=== PATIENT | female | born 1930 | race Caucasian/White ===

== ENCOUNTER 2016-10-15 10:49 | Inpatient (IN) | payer MEDICARE, BC ==
[~2016-10-15 10:49] MED LIST: GENTAMICIN SULFATE 80 MG in DEXTROSE 5%-WATER 100 ML IV PRN
[2016-10-15 12:19] LABS: ANION GAP 14 (5-19); BLOOD UREA NITROGEN 36 mg/dL (7-20); CALCIUM 8.4 mg/dL (8.4-10.2); CARBON DIOXIDE 25 mmol/L (22-30); CHLORIDE 96 mmol/L (98-107); CREATININE RESULT 2.65 mg/dL (0.52-1.25); GLUCOSE 130 mg/dL (75-110); POTASSIUM 4.4 mmol/L (3.6-5.0); SODIUM 134.8 mmol/L (137-145)
[2016-10-15] MEDS ORDERED: FENTANYL CITRATE INJ/PF 100 MCG/2 ML AMPUL ONE (12:50)
[2016-10-15] MEDS ORDERED: PROPOFOL INJ 200 MG/20 ML VIAL IV ONE (12:50)
[2016-10-15] MEDS ORDERED: MIDAZOLAM 2 MG/2 ML INJ ONE (12:50)
[2016-10-15] MEDS ORDERED: DEXMEDETOMIDINE INJ 80 MCG/20 ML VIAL IV ONE (12:51)
[2016-10-15] MEDS ORDERED: ONDANSETRON HCL INJ/PF 4 MG/2 ML SDV ONE (13:17)
--- NOTE | 2016-10-15 14:37 | Operative Report ---
Operative Report DATE OF SURGERY: 10/15/16 PREOPERATIVE DIAGNOSIS: ureteral stricture POSTOPERATIVE DIAGNOSIS: same OPERATION: cystoscopy, left retrograde pyelogram, left stent exchange SURGEON: CAIN BROWN ANESTHESIA: Moderate Sedation COMPLICATIONS: none ESTIMATED BLOOD LOSS: minimal INTRAOPERATIVE FINDINGS: see below PROCEDURE: The patient was taken to the operating room and placed supine on the operating table. After Mac anesthesia was established she was placed in dorsal lithotomy position. The perineal area was dressed and draped in standard surgical fashion. Attention was paid to the urethral meatus a 23 [place] scope was introduced the bladder. Cystoscopy revealed no masses. The stent was identified and grasped with a grasper and brought to urethral meatus. Attempt was made at passing a guidewire through the stent however it was encrusted in one pass. The stent was removed and tip catheter was placed within the left ureteral orifice and a retrograde program shot demonstrating ureteral stricture and mild hydronephrosis. A PTFE wire was then advanced up into the renal pelvis under fluoroscopy. A 622 double-J stent was then placed. The stent was in good position on fluoroscopy with good coil renal pelvis and good coil bladder. She tolerated the procedure well without complications.
[2016-10-15] MEDS ORDERED: METOPROLOL TARTRATE PF/INJ 5 MG/5 ML SDV IV ONE ×4 (14:42→16:13)
[2016-10-15] MEDS ORDERED: ONDANSETRON HCL INJ/PF 4 MG/2 ML SDV IV PRN ×2 (14:43→17:07)
[2016-10-15] MEDS ORDERED: OXYCODONE-ACETAMINOPHEN 5-325 MG TABLET PO PRN (14:43)
--- NOTE | 2016-10-15 15:49 | EKG REPORT ---
SEVERITY:- ABNORMAL ECG - ATRIAL FIBRILLATION, V-RATE [id number] : Confirmed by: Laith Quigley 15-Oct-2016 15:48:00
[2016-10-15 17:05] LABS: ANION GAP 8 (5-19); BLOOD UREA NITROGEN 33 mg/dL (7-20); CARBON DIOXIDE 28 mmol/L (22-30); CHLORIDE 98 mmol/L (98-107); CREATINE KINASE 46 U/L (30-135); CREATININE RESULT 2.33 mg/dL (0.52-1.25); GLUCOSE 125 mg/dL (75-110); MAGNESIUM 1.3 mg/dL (1.6-2.3); POTASSIUM 4.3 mmol/L (3.6-5.0); SODIUM 133.7 mmol/L (137-145)
[2016-10-15] MEDS ORDERED: (PENDING PHARMACY ID) (Oxycodone Hcl [Oxycodone Hcl] 1 TAB) PO PRN (17:10)
[2016-10-15] MEDS ORDERED: DEXTROSE 50%-WATER 25 GM/50 ML DISP.SYRIN IV PRN ×2 (17:11)
[2016-10-15] MEDS ORDERED: GLUCAGON,HUMAN RECOMB 1 MG INJ IM PRN (17:11)
[2016-10-15] MEDS ORDERED: DEXTROSE 40% GEL 15 GM TUBE PO PRN ×2 (17:11)
[2016-10-15 17:17] LABS: CREATINE KINASE MB 0.82 ng/mL (<4.55)
[2016-10-15 17:21] LABS: TROPONIN I < 0.012 ng/mL
[2016-10-15] MEDS ORDERED: (PENDING PHARMACY ID) (Omeprazole [Prilosec 20 Mg Capsule] 20 MG) PO SCH (18:00)
[2016-10-15] MEDS: DOCUSATE SODIUM 100 MG CAPSULE PO SCH (19:00)
[2016-10-15] MEDS ORDERED: DILTIAZEM HCL/D5W 125 MG/125 ML RTUINJ IV PRN (20:10)
[2016-10-15] MEDS ORDERED: ENOXAPARIN SODIUM INJ 40 MG/0.4 ML DISP.SYRIN SUBCUT ONE (21:15)
[2016-10-15] MEDS ORDERED: ENOXAPARIN SODIUM INJ 30 MG/0.3 ML DISP.SYRIN SUBCUT ONE (21:30)
[2016-10-15] MEDS ORDERED: FAMOTIDINE INJ/PF 20 MG/2 ML SDV IV SCH (22:00)
[2016-10-15 22:41] LABS: PROTHROMBIN TIME 13.4 SEC (11.4-15.4)
[2016-10-15] MEDS: FAMOTIDINE INJ/PF 20 MG/2 ML SDV IV SCH (22:52)
[2016-10-15] MEDS: ATORVASTATIN CALCIUM 40 MG TABLET PO SCH (22:52)
[2016-10-15] MEDS: ATENOLOL 50 MG TABLET PO SCH (22:55)
[2016-10-15 23:50] LABS: HEMATOCRIT 32.3 % (36.0-47.0); HEMOGLOBIN 11.1 g/dL (12.0-15.5); MEAN CORPUSCULAR HEMOGLOBIN 31.9 pg (27.0-33.4); MEAN CORPUSCULAR HGB CONC 34.4 g/dL (32.0-36.0); MEAN CORPUSCULAR VOLUME 93 fl (80-97); RED BLOOD COUNT 3.49 10^6/uL (3.72-5.28); RED CELL DISTRIBUTION WIDTH 14.6 % (11.5-14.0); WHITE BLOOD COUNT 11.5 10^3/uL (4.0-10.5)
[2016-10-16 00:16] LABS: ANISOCYTOSIS SLIGHT; BAND NEUTROPHILS % (MANUAL) 4 % (3-5); BASOPHILS % (MANUAL) 0 % (0-2); EOSINOPHILS % (MANUAL) 0 % (0-6); LYMPHOCYTES % (MANUAL) 0 % (13-45); TOTAL CELLS COUNTED 100; TOXIC VACUOLATION PRESENT
[2016-10-16] MEDS: INSULIN LISPRO 100 UNIT/ML 3 ML VIAL SUBCUT PRN (00:56)
[2016-10-16] MEDS: ACETAMINOPHEN 325 MG TABLET PO PRN (01:02)
[2016-10-16] MEDS: PREGABALIN 50 MG CAPSULE PO SCH ×3 (01:28→23:00)
[2016-10-16 04:52] LABS: ABSOLUTE BASOPHILS # (AUTO) 0.1 10^3/uL (0.0-0.2); ABSOLUTE LYMPHOCYTES (AUTO) 0.8 10^3/uL (0.5-4.7); ABSOLUTE MONOCYTES (AUTO) 0.7 10^3/uL (0.1-1.4); ABSOLUTE NEUT (AUTO) 11.8 10^3/uL (1.7-8.2); BASOPHILS % (AUTO) 0.6 % (0-2); EOSINOPHILS % (AUTO) 0.3 % (0-6); HEMATOCRIT 30.4 % (36.0-47.0); HEMOGLOBIN 10.4 g/dL (12.0-15.5); HGB HCT DIFFERENCE 0.8; LYMPHOCYTES % (AUTO) 5.9 % (13-45); MEAN CORPUSCULAR HEMOGLOBIN 31.7 pg (27.0-33.4); MEAN CORPUSCULAR HGB CONC 34.4 g/dL (32.0-36.0); MEAN CORPUSCULAR VOLUME 92 fl (80-97); MONOCYTES % (AUTO) 5.5 % (3-13); RED BLOOD COUNT 3.29 10^6/uL (3.72-5.28); RED CELL DISTRIBUTION WIDTH 14.9 % (11.5-14.0); SEGMENTED NEUTROPHILS % (AUTO) 87.7 % (42-78); WHITE BLOOD COUNT 13.5 10^3/uL (4.0-10.5)
[2016-10-16 05:11] LABS: ANION GAP 8 (5-19); BLOOD UREA NITROGEN 32 mg/dL (7-20); CALCIUM 8.4 mg/dL (8.4-10.2); CARBON DIOXIDE 28 mmol/L (22-30); CHLORIDE 101 mmol/L (98-107); CREATINE KINASE 52 U/L (30-135); GLUCOSE 166 mg/dL (75-110); MAGNESIUM 1.4 mg/dL (1.6-2.3); POTASSIUM 4.8 mmol/L (3.6-5.0); SODIUM 136.9 mmol/L (137-145)
[2016-10-16 05:22] LABS: TROPONIN I 0.016 ng/mL
--- NOTE | 2016-10-16 07:57 | EKG REPORT ---
SEVERITY:- ABNORMAL ECG - ATRIAL FIBRILLATION : Confirmed by: Laith Quigley 16-Oct-2016 07:56:54
[2016-10-16] MEDS ORDERED: ENOXAPARIN SODIUM INJ 40 MG/0.4 ML DISP.SYRIN SUBCUT SCH (08:00)
[2016-10-16] MEDS ORDERED: AMIODARONE HCL 200 MG TABLET PO ONE ×2 (09:00→22:00)
[2016-10-16] MEDS: ENOXAPARIN SODIUM INJ 30 MG/0.3 ML DISP.SYRIN SUBCUT SCH (09:21)
[2016-10-16] MEDS: ISOSORBIDE MONONITRATE 30 MG TAB.ER.24H PO SCH (09:25)
[2016-10-16] MEDS: FUROSEMIDE 40 MG TABLET PO SCH (09:25)
[2016-10-16] MEDS: CIPROFLOXACIN HCL 500 MG TABLET PO SCH ×2 (09:25→22:54)
[2016-10-16] MEDS: DOCUSATE SODIUM 100 MG CAPSULE PO SCH ×2 (09:26→17:34)
[2016-10-16] MEDS: POTASSIUM CHLORIDE 10 MEQ TABLET.SA PO SCH (09:26)
[2016-10-16] MEDS: ESCITALOPRAM OXALATE 10 MG TABLET PO SCH (09:27)
[2016-10-16] MEDS ORDERED: ISOSORBIDE MONONITRATE 60 MG TAB.ER.24H PO SCH (10:00)
[2016-10-16] MEDS ORDERED: (PENDING PHARMACY ID) (Saxagliptin Hcl [Onglyza] 5 MG) PO SCH (10:00)
[2016-10-16] MEDS ORDERED: POTASSIUM CHLORIDE PO SCH (10:00)
--- NOTE | 2016-10-16 13:09 | PDOC H&P ---
History of Present Illness Admission Date/PCP: 10/15/16 17:07 BONITA LYNN MD Patient complains of: afib History of Present Illness: MICHELLE HAYDEN is a 86 year old female pt came today for out pt cystoscopy and stent remove per dr murry and s/ pprocedure pt hr go upto 120 and ekg was done and shows afib pt hada h/o afib in past pt see dr browne for chf/cad p denied any chest pain no sob no abd pain no fever pt admitted for further evaution Past Medical History Cardiac Medical History: Reports: Congestive Heart Failure, Coronary Artery Disease, Hyperlipidema, Hypertension - many yrs Denies: Myocardial Infarction Pulmonary Medical History: Reports: Asthma - sob with exertion Denies: Bronchitis, Chronic Obstructive Pulmonary Disease (COPD), Pneumonia, Tuberculosis Neurological Medical History: Denies: Seizures Endocrine Medical History: Reports: Diabetes Mellitus Type 2 - no meds Malignancy Medical History: Reports: Other Malignancy History Note: rectal cancer s/p surgery/chemo GI Medical History: Reports: Gastroesophageal Reflux Disease Musculoskeltal Medical History: Reports: Arthritis - legs Psychiatric Medical History: Reports: Depression Hematology: Reports: Anemia - in past Past Surgical History Past Surgical History: Reports: Appendectomy, Cardiac Catheterization - x2, Cholecystectomy, Other Denies: Hysterectomy, Pacemaker Social History Smoking Status: Never Smoker Frequency of Alcohol Use: None Hx Recreational Drug Use: Yes Hx Prescription Drug Abuse: No Family History Family History: Reviewed & Not Pertinent Parental Family History Reviewed: Yes Children Family History Reviewed: Yes Sibling(s) Family History Reviewed.: Yes Medication/Allergy Home Medications: Atorvastatin Calcium [Lipitor 40 mg Tablet] 40 mg PO QHS 10/13/12 Omeprazole [Prilosec 20 mg Capsule] 20 mg PO BID 10/13/12 Saxagliptin HCl [Onglyza] 5 mg PO DAILY 10/13/12 Cholecalciferol (Vitamin D3) [Vitamin D3 1000 Unit Tablet] 1,000 unit PO DAILY # 0 tablet 09/09/13 Furosemide [Lasix 40 mg Tablet] 40 mg PO QAM #0 tablet 09/09/13 Pregabalin [Lyrica 50 mg Capsule] 50 mg PO Q12 #0 capsule 09/09/13 Atenolol [Tenormin 50 mg Tablet] 50 mg PO QHS 04/23/15 Escitalopram Oxalate [Lexapro 10 mg Tablet] 10 mg PO QAM 04/23/15 Escitalopram Oxalate [Lexapro] 5 mg PO QPM 04/23/15 Glimepiride [Amaryl] 2 mg PO QPM 04/23/15 Oxycodone HCl 1 tab PO Q4 PRN 07/20/15 Isosorbide Mononitrate [Imdur 60 mg Tablet.er] 30 mg PO DAILY 12/16/15 Ondansetron [Zofran Odt 4 mg Tablet] 1 - 2 tab PO Q4H PRN #15 tab.rapdis Potassium Chloride 1 cap PO DAILY 06/12/16 Allergies/Adverse Reactions: dipyridamole [From Persantine] Allergy (Severe, Verified 02/21/16 11:58) ? nalbuphine HCl [From Nubain] Allergy (Severe, Verified 12/16/15 11:41) shock Penicillins Allergy (Severe, Verified 02/21/16 11:58) rash Sulfa (Sulfonamide Antibiotics) Allergy (Unknown, Verified 12/16/15 11:41) ? aspirin [Aspirin] Adverse Reaction (Mild, Verified 12/16/15 11:41) stomach upset cardiolite Allergy (Severe, Uncoded 12/16/15 11:41) Hives IVP dye Allergy (Intermediate, Uncoded 12/16/15 11:41) Hives Review of Systems Constitutional: PRESENT: fatigue, weakness Eyes: ABSENT: visual disturbances Ears: ABSENT: hearing changes Cardiovascular: ABSENT: chest pain, dyspnea on exertion, edema, orthropnea, palpitations Respiratory: ABSENT: cough, hemoptysis Gastrointestinal: ABSENT: abdominal pain, constipation, diarrhea, hematemesis, hematochezia, nausea, vomiting Genitourinary: ABSENT: dysuria, hematuria Musculoskeletal: ABSENT: joint swelling Integumentary: ABSENT: rash, wounds Neurological: ABSENT: abnormal gait, abnormal speech, confusion, dizziness, focal weakness, syncope Psychiatric: ABSENT: anxiety, depression, homidical ideation, suicidal ideation Endocrine: ABSENT: cold intolerance, heat intolerance, menstrual abnormalities, polydipsia, polyuria Hematologic/Lymphatic: ABSENT: easy bleeding, easy bruising, lymphadenopathy Physical Exam Vital Signs: Temp Pulse Resp BP Pulse Ox 97.2 F 78 18 108/54 L 98 10/16/16 07:20 10/16/16 07:20 10/16/16 07:20 10/16/16 07:20 10/16/16 07:20 Intake & Output 10/15/16 10/16/16 10/17/16 06:59 06:59 06:59 Intake Total 1916 Output Total 400 Balance 1516 Weight 86 kg 92.5 kg General appearance: PRESENT: no acute distress Head exam: PRESENT: normocephalic Eye exam: PRESENT: PERRLA Mouth exam: PRESENT: neck supple Neck exam: PRESENT: full ROM Respiratory exam: PRESENT: clear to auscultation wei Cardiovascular exam: PRESENT: irregular rhythm, +S1, +S2 GI/Abdominal exam: PRESENT: normal bowel sounds, soft. ABSENT: tenderness Extremities exam: PRESENT: pedal edema Musculoskeletal exam: PRESENT: other Neurological exam: PRESENT: alert, awake, oriented to person, oriented to place , oriented to time, oriented to situation Psychiatric exam: PRESENT: anxious, normal mood Skin exam: PRESENT: normal color Results Laboratory Results: 10/16/16 04:45 10/16/16 04:45 10/15/16 10/15/16 10/16/16 16:37 22:20 04:45 WBC 11.5 H RBC 3.49 L Hgb 11.1 L Hct 32.3 L MCV 93 MCH 31.9 MCHC 34.4 RDW 14.6 H Plt Count 178 Seg Neutrophils % Not Reportable Lymphocytes % Not Reportable Monocytes % Not Reportable Eosinophils % Not Reportable Basophils % Not Reportable Absolute Neutrophils Not Reportable Absolute Lymphocytes Not Reportable Absolute Monocytes Not Reportable Absolute Eosinophils Not Reportable Absolute Basophils Not Reportable Sodium 133.7 L 136.9 L Potassium 4.3 4.8 Chloride 98 101 Carbon Dioxide 28 28 Anion Gap 8 8 BUN 33 H 32 H Creatinine 2.33 H 2.20 H Est GFR ( Amer) 24 L 26 L Est GFR (Non-Af Amer) 20 L 21 L Glucose 125 H 166 H Calcium 8.0 L 8.4 Magnesium 1.3 L 1.4 L 10/16/16 04:45 WBC 13.5 H RBC 3.29 L Hgb 10.4 L Hct 30.4 L MCV 92 MCH 31.7 MCHC 34.4 RDW 14.9 H Plt Count 186 Seg Neutrophils % 87.7 H Lymphocytes % 5.9 L Monocytes % 5.5 Eosinophils % 0.3 Basophils % 0.6 Absolute Neutrophils 11.8 H Absolute Lymphocytes 0.8 Absolute Monocytes 0.7 Absolute Eosinophils 0.0 Absolute Basophils 0.1 Sodium Potassium Chloride Carbon Dioxide Anion Gap BUN Creatinine Est GFR ( Amer) Est GFR (Non-Af Amer) Glucose Calcium Magnesium 10/15/16 10/15/16 10/15/16 16:37 16:37 22:20 Creatine Kinase 46 49 CK-MB (CK-2) 0.82 Troponin I < 0.012 NT-Pro-B Natriuret Pep 10/15/16 10/16/16 10/16/16 22:20 04:45 04:45 Creatine Kinase 52 CK-MB (CK-2) Troponin I 0.013 0.016 NT-Pro-B Natriuret Pep 81560 H Impressions: Retrograde Pyelogram 10/15/16 00:00 IMPRESSION: Left double-J stent in good positioning Assessment & Plan - Diagnosis (1) Atrial fibrillation Qualifiers: Atrial fibrillation type: paroxysmal Qualified Code(s): I48.0 - Paroxysmal atrial fibrillation Is this a current diagnosis for this admission?: YesPlan: cont b blocer no s/o any ischmic events d/w dr browne and s/o do not put any anticogaution now he will see and decide (2) Anemia Qualifiers: Iron deficiency anemia type: unspecified iron deficiency Is this a current diagnosis for this admission?: YesPlan: stable (3) Back pain Qualifiers: Back pain location: low back pain Is this a current diagnosis for this admission?: YesPlan: chronci cont pain med (4) Diabetes Qualifiers: Diabetes mellitus type: type 2 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 Is this a current diagnosis for this admission?: YesPlan: cont curr med (5) Hyperlipemia Qualifiers: Hyperlipidemia type: unspecified Qualified Code(s): E78.5 - Hyperlipidemia, unspecified Is this a current diagnosis for this admission?: YesPlan: cont curr med (6) Neuropathy Is this a current diagnosis for this admission?: YesPlan: cont lyrica (8) Hypertension Qualifiers: Hypertension type: essential hypertension Qualified Code(s): I10 - Essential (primary) hypertension (9) Urinary tract infection Qualifiers: Urinary tract infection type: site unspecified Is this a current diagnosis for this admission?: YesPlan: send urine for culture start cipro - Time Time Spent: 30 to 50 Minutes Medications reviewed and adjusted accordingly: Yes Anticipated discharge: Home Within: within 24 hours - Inpatient Certification Medical Necessity: Significant Comorbidiites Make Outpatient Treatment Too Risky , Need Close Monitoring Due to Risk of Patient Decompensation, Need For Continuous Telemetry Monitoring - Plan Summary Plan Summary: d/w pt and daughter on bed site consult dr hobbs all blood work stable
[2016-10-16] MEDS: ATORVASTATIN CALCIUM 40 MG TABLET PO SCH (22:53)
[2016-10-16] MEDS: ATENOLOL 50 MG TABLET PO SCH (22:54)
[2016-10-16] MEDS: FAMOTIDINE INJ/PF 20 MG/2 ML SDV IV SCH (22:54)
[2016-10-17 05:34] LABS: ABSOLUTE LYMPHOCYTES (AUTO) 0.7 10^3/uL (0.5-4.7); ABSOLUTE MONOCYTES (AUTO) 0.4 10^3/uL (0.1-1.4); ABSOLUTE NEUT (AUTO) 4.7 10^3/uL (1.7-8.2); BASOPHILS % (AUTO) 0.7 % (0-2); EOSINOPHILS % (AUTO) 0.6 % (0-6); HEMATOCRIT 30.2 % (36.0-47.0); HEMOGLOBIN 10.4 g/dL (12.0-15.5); LYMPHOCYTES % (AUTO) 11.1 % (13-45); MEAN CORPUSCULAR HEMOGLOBIN 32.1 pg (27.0-33.4); MEAN CORPUSCULAR HGB CONC 34.4 g/dL (32.0-36.0); MEAN CORPUSCULAR VOLUME 93 fl (80-97); MONOCYTES % (AUTO) 7.5 % (3-13); RED BLOOD COUNT 3.23 10^6/uL (3.72-5.28); RED CELL DISTRIBUTION WIDTH 14.7 % (11.5-14.0); SEGMENTED NEUTROPHILS % (AUTO) 80.1 % (42-78); WHITE BLOOD COUNT 5.9 10^3/uL (4.0-10.5)
[2016-10-17 05:51] LABS: ANION GAP 8 (5-19); BLOOD UREA NITROGEN 27 mg/dL (7-20); CALCIUM 8.3 mg/dL (8.4-10.2); CARBON DIOXIDE 29 mmol/L (22-30); CHLORIDE 100 mmol/L (98-107); CREATININE RESULT 1.43 mg/dL (0.52-1.25); GLUCOSE 158 mg/dL (75-110); POTASSIUM 4.6 mmol/L (3.6-5.0); SODIUM 136.6 mmol/L (137-145)
[2016-10-17] MEDS: ESCITALOPRAM OXALATE 10 MG TABLET PO SCH (08:42)
[2016-10-17] MEDS: FUROSEMIDE 40 MG TABLET PO SCH (08:42)
[2016-10-17] MEDS: PREGABALIN 50 MG CAPSULE PO SCH ×2 (08:43→22:31)
[2016-10-17] MEDS: POTASSIUM CHLORIDE 10 MEQ TABLET.SA PO SCH (08:43)
[2016-10-17] MEDS: DOCUSATE SODIUM 100 MG CAPSULE PO SCH ×2 (08:43→17:36)
[2016-10-17] MEDS: CIPROFLOXACIN HCL 500 MG TABLET PO SCH ×2 (08:43→22:31)
[2016-10-17] MEDS: ISOSORBIDE MONONITRATE 30 MG TAB.ER.24H PO SCH (08:43)
[2016-10-17] MEDS: ENOXAPARIN SODIUM INJ 30 MG/0.3 ML DISP.SYRIN SUBCUT SCH (09:00)
--- NOTE | 2016-10-17 09:49 | PDOC PROGRESS REPORT ---
Subjective Progress Note for:: 10/17/16 Subjective:: pt is doing well cr is all improving as per d/w dr browne and s/o start eliqius and watch another 1 days pt denied any chestpain no sob Physical Exam Vital Signs: Temp Pulse Resp BP Pulse Ox 98.8 F 106 H 16 144/79 H 94 10/17/16 07:38 10/17/16 07:38 10/17/16 07:38 10/17/16 07:38 10/17/16 07:38 Intake & Output 10/16/16 10/17/16 10/18/16 06:59 06:59 06:59 Intake Total 1916 415 Output Total 400 450 Balance 1516 -35 Weight 92.5 kg 92.4 kg General appearance: PRESENT: no acute distress Head exam: PRESENT: normocephalic Eye exam: PRESENT: PERRLA Mouth exam: PRESENT: neck supple Neck exam: PRESENT: full ROM Respiratory exam: PRESENT: clear to auscultation wei Cardiovascular exam: PRESENT: irregular rhythm, +S1, +S2 GI/Abdominal exam: PRESENT: normal bowel sounds, soft. ABSENT: tenderness Extremities exam: ABSENT: pedal edema Neurological exam: PRESENT: alert, awake, oriented to person Psychiatric exam: PRESENT: normal mood Skin exam: PRESENT: normal color Results Laboratory Results: 10/17/16 05:16 10/17/16 05:16 10/17/16 10/17/16 05:16 05:16 WBC 5.9 RBC 3.23 L Hgb 10.4 L Hct 30.2 L MCV 93 MCH 32.1 MCHC 34.4 RDW 14.7 H Plt Count 164 Seg Neutrophils % 80.1 H Lymphocytes % 11.1 L Monocytes % 7.5 Eosinophils % 0.6 Basophils % 0.7 Absolute Neutrophils 4.7 Absolute Lymphocytes 0.7 Absolute Monocytes 0.4 Absolute Eosinophils 0.0 Absolute Basophils 0.0 Sodium 136.6 L Potassium 4.6 Chloride 100 Carbon Dioxide 29 Anion Gap 8 BUN 27 H Creatinine 1.43 H Est GFR ( Amer) 42 L Est GFR (Non-Af Amer) 35 L Glucose 158 H Calcium 8.3 L 10/15/16 10/15/16 10/15/16 16:37 16:37 22:20 Creatine Kinase 46 49 CK-MB (CK-2) 0.82 Troponin I < 0.012 NT-Pro-B Natriuret Pep 10/15/16 10/16/16 10/16/16 22:20 04:45 04:45 Creatine Kinase 52 CK-MB (CK-2) Troponin I 0.013 0.016 NT-Pro-B Natriuret Pep 28248 H Impressions: Retrograde Pyelogram 10/15/16 00:00 IMPRESSION: Left double-J stent in good positioning Assessment & Plan - Diagnosis (1) Atrial fibrillation Qualifiers: Atrial fibrillation type: paroxysmal Qualified Code(s): I48.0 - Paroxysmal atrial fibrillation Is this a current diagnosis for this admission?: YesPlan: start eliquis 2.5 mg bid (2) Anemia Qualifiers: Iron deficiency anemia type: unspecified iron deficiency Is this a current diagnosis for this admission?: YesPlan: stable (3) Back pain Qualifiers: Back pain location: low back pain Is this a current diagnosis for this admission?: YesPlan: chronci cont pain med (4) Diabetes Qualifiers: Diabetes mellitus type: type 2 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 Is this a current diagnosis for this admission?: YesPlan: cont curr med (5) Hyperlipemia Qualifiers: Hyperlipidemia type: unspecified Qualified Code(s): E78.5 - Hyperlipidemia, unspecified Is this a current diagnosis for this admission?: YesPlan: cont curr med (6) Neuropathy Is this a current diagnosis for this admission?: YesPlan: cont lyrica (7) Rectal cancer Plan: stable (8) Hypertension Qualifiers: Hypertension type: essential hypertension Qualified Code(s): I10 - Essential (primary) hypertension Is this a current diagnosis for this admission?: YesPlan: stable (9) Urinary tract infection Qualifiers: Urinary tract infection type: site unspecified Is this a current diagnosis for this admission?: YesPlan: send urine for culture start cipro (10) Renal failure Is this a current diagnosis for this admission?: YesPlan: improving - Time Time Spent with patient: 15-24 minutes Medications reviewed and adjusted accordingly: Yes Anticipated discharge: Home with Homehealth - Inpatient Certification Medical Necessity: Need Close Monitoring Due to Risk of Patient Decompensation, Need For Continuous Telemetry Monitoring - Plan Summary Plan Summary: start eliqius cont cipro repeat cbc in am
[2016-10-17 10:15] LABS: ALBUMIN 2.4 g/dL (3.5-5.0); BILIRUBIN,TOTAL 0.7 mg/dL (0.2-1.3); TOTAL PROTEIN 4.9 g/dL (6.3-8.2)
[2016-10-17 10:31] LABS: FREE T3 1.79 pg/mL (2.77-5.27)
[2016-10-17 10:45] LABS: THYROID STIMULATING HORMONE 1.72 uIU/mL (0.47-4.68)
[2016-10-17] MEDS: APIXABAN 2.5 MG TABLET PO SCH ×2 (11:00→17:36)
[2016-10-17] MEDS: SITAGLIPTIN PHOSPHATE 50 MG TABLET PO SCH (11:00)
[2016-10-17] MEDS ORDERED: OXYCODONE HCL IR 5 MG TABLET PO PRN (13:56)
[2016-10-17] MEDS ORDERED: METOPROLOL TARTRATE 25 MG TABLET PO SCH (18:00)
--- NOTE | 2016-10-17 21:38 | PROGRESS NOTE E ---
Progress Note NAME: MICHELLE HAYDEN : 1930 AGE: 86Y DATE: 10/17/2016 ROOM: 335 SUBJECTIVE: Note that the patient continues to be in atrial fibrillation with ventricular response around 80-96 beats per minute. Note that the patient yesterday received 2 doses of amiodarone 400 mg b.i.d. In spite of this remains in atrial fibrillation. She denies any chest pain or discomfort. There is no shortness of breath. There is no PND, orthopnea. There are no TIA or CVA symptoms. There is no bleeding on Eliquis. There is no pedal edema. OBJECTIVE: GENERAL: On examination the patient is morbidly obese, in no acute distress. VITAL SIGNS: She is afebrile with a temperature of 98.2 degrees Fahrenheit, pulse is 96 beats per minute, blood pressure is 142/76, respirations are 18 per minute, O2 saturations are 94% on room air. HEAD: Atraumatic, normocephalic. EYES: Pupils are equal, round and regular, react to light and accommodation. Extraocular movements are normal. There is no conjunctival pallor. There is no scleral icterus. EAR, NOSE, AND THROAT: Negative. NECK: Supple. There is no JVD. There is no lymphadenopathy. There is no goiter. Carotids are equal. There is no bruit. Trachea is central. LUNGS: Clear to auscultation and percussion. There are no rhonchi, rales, or wheezing. HEART: S1 and S2 is heard. There is no S3 gallop. There is no S4 gallop. There is a systolic murmur in the left sternal border and the apex. There is no rub. S1 is of variable intensity. ABDOMEN: Soft, nontender. There is no hepatosplenomegaly. Bowel sounds are well heard. EXTREMITIES: Femorals are deep. There are no femoral bruits. Femorals are diminished. Leg pulses are diminished. There is no pedal edema. There is no DVT or cellulitis. There is no calf tenderness. CENTRAL NERVOUS SYSTEM: The patient is conscious, awake, alert and oriented x3 with no focal deficits. PSYCHIATRIC: The patient's judgment and insight are intact. Affect is normal. LABORATORY DATA: The patient's white count is 5900, hemoglobin is 10.4, hematocrit is 30.2, platelet count is 164,000. The patient's sodium is 136, potassium 4.6, chloride 100, CO2 is 29. The patient's BUN is 27, creatinine is 1.43, GFR is reduced to 35 mL. The patient has chronic kidney disease stage 3. The patient's glucose is 158. The patient's calcium is 138. The patient's liver function tests are normal. The patient's TSH is 1.72, free T4 is 1.23, free T3 is 1.79. The patient's albumin is 2.4, total protein is 4.9. IMPRESSION: 1. NEW ONSET ATRIAL FIBRILLATION. Note the patient's heart rate is controlled. The patient did not convert with 2 doses of amiodarone. We will stop the patient's amiodarone and we will increase the patient's atenolol to 50 mg p.o. b.i.d. The patient is already on Eliquis with no bleeding complication. I have discussed the risks of bleeding with Eliquis with there being no antidote for that if the patient should bleed. Also discussed being on Coumadin and the patient prefers to be on Eliquis. 2. 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 The patient is on Januvia 50 mg p.o. daily, continue that. 3. HYPERTENSION. 4. CHRONIC KIDNEY DISEASE. 5. CORONARY ARTERY DISEASE. The patient without any anginal symptoms. 6. DIABETIC NEUROPATHY OF THE FEET. 7. URINARY TRACT INFECTION. The patient is on antibiotics. 8. HYPERLIPIDEMIA. 9. CHRONIC KIDNEY DISEASE AT PRESENT STAGE 3. RECOMMENDATIONS: 1. Continue Eliquis, we will increase the patient's atenolol. Continue to watch the patient for angina symptoms. 2. Would recommend bringing the patient back after 3-4 weeks after being on Eliquis to see if the patient can be cardioverted to sinus rhythm with electrical or chemical cardioversion if the patient still remains atrial fibrillation. TIME SPENT: Note 35 minutes spent on this patient with more than 50% of the time spent on direct patient care, reviewing of the patient's medication, adjustment of medication, and discussions with the patient and discussions with Dr. Dariela Ortiz the attending physician on record. CODE STATUS: Note that the patient is a full code. Her daughter is the surrogate healthcare decision maker. We will follow with you. DICTATING PHYSICIAN: RAFAEL DONALD M.D. [id number] PHY#: [id number] ID: [id number] JOB#: [id number] ACCT: [id number] cc: >
[2016-10-17] MEDS: ATORVASTATIN CALCIUM 40 MG TABLET PO SCH (22:31)
[2016-10-17] MEDS: ATENOLOL 50 MG TABLET PO SCH (22:32)
[2016-10-18] MEDS: FAMOTIDINE INJ/PF 20 MG/2 ML SDV IV SCH ×2 (05:13→22:45)
[2016-10-18 06:38] LABS: ABSOLUTE BASOPHILS # (AUTO) 0.1 10^3/uL (0.0-0.2); ABSOLUTE LYMPHOCYTES (AUTO) 0.5 10^3/uL (0.5-4.7); ABSOLUTE MONOCYTES (AUTO) 0.6 10^3/uL (0.1-1.4); ABSOLUTE NEUT (AUTO) 6.6 10^3/uL (1.7-8.2); BASOPHILS % (AUTO) 0.7 % (0-2); EOSINOPHILS % (AUTO) 0.3 % (0-6); HEMATOCRIT 31.9 % (36.0-47.0); HEMOGLOBIN 10.7 g/dL (12.0-15.5); HGB HCT DIFFERENCE 0.2; LYMPHOCYTES % (AUTO) 6.8 % (13-45); MEAN CORPUSCULAR HEMOGLOBIN 31.7 pg (27.0-33.4); MEAN CORPUSCULAR HGB CONC 33.5 g/dL (32.0-36.0); MEAN CORPUSCULAR VOLUME 95 fl (80-97); MONOCYTES % (AUTO) 8.2 % (3-13); RED BLOOD COUNT 3.38 10^6/uL (3.72-5.28); RED CELL DISTRIBUTION WIDTH 14.4 % (11.5-14.0); WHITE BLOOD COUNT 7.9 10^3/uL (4.0-10.5)
[2016-10-18 06:55] LABS: ANION GAP 11 (5-19); BLOOD UREA NITROGEN 22 mg/dL (7-20); CALCIUM 8.5 mg/dL (8.4-10.2); CARBON DIOXIDE 28 mmol/L (22-30); CHLORIDE 98 mmol/L (98-107); CREATININE RESULT 1.15 mg/dL (0.52-1.25); GLUCOSE 158 mg/dL (75-110); POTASSIUM 4.7 mmol/L (3.6-5.0); SODIUM 137.3 mmol/L (137-145)
[2016-10-18] MEDS: ISOSORBIDE MONONITRATE 30 MG TAB.ER.24H PO SCH (09:40)
[2016-10-18] MEDS: ATENOLOL 50 MG TABLET PO SCH ×2 (09:40→22:42)
[2016-10-18] MEDS: PREGABALIN 50 MG CAPSULE PO SCH ×2 (09:40→22:41)
[2016-10-18] MEDS: FUROSEMIDE 40 MG TABLET PO SCH (09:40)
[2016-10-18] MEDS: POTASSIUM CHLORIDE 10 MEQ TABLET.SA PO SCH (09:41)
[2016-10-18] MEDS: CIPROFLOXACIN HCL 500 MG TABLET PO SCH ×2 (09:41→22:41)
[2016-10-18] MEDS: ESCITALOPRAM OXALATE 10 MG TABLET PO SCH (09:41)
[2016-10-18] MEDS: SITAGLIPTIN PHOSPHATE 50 MG TABLET PO SCH (09:41)
[2016-10-18] MEDS: NYSTATIN TOPICAL POWDER 15 GM TP SCH (09:42)
[2016-10-18] MEDS: ZINC OXIDE 20% OINTMENT 28.35 GM TP SCH (09:42)
[2016-10-18] MEDS: APIXABAN 2.5 MG TABLET PO SCH ×2 (09:42→18:00)
[2016-10-18] MEDS: DOCUSATE SODIUM 100 MG CAPSULE PO SCH ×2 (09:43→18:00)
--- NOTE | 2016-10-18 17:32 | PDOC PROGRESS REPORT ---
Subjective Progress Note for:: 10/18/16 Subjective:: Patient was seen by the bedside, she is somewhat very drowsy. Physical Exam Vital Signs: Temp Pulse Resp BP Pulse Ox 97.5 F 91 19 141/74 H 95 10/18/16 16:24 10/18/16 16:24 10/18/16 16:24 10/18/16 16:24 10/18/16 16:24 Intake & Output 10/17/16 10/18/16 10/19/16 06:59 06:59 06:59 Intake Total 415 260 100 Output Total 450 300 150 Balance -35 -40 -50 Weight 92.4 kg 90.5 kg General appearance: PRESENT: no acute distress Head exam: PRESENT: normocephalic Eye exam: PRESENT: PERRLA. ABSENT: scleral icterus Cardiovascular exam: PRESENT: RRR, +S1, +S2 Pulses: PRESENT: +2 pedal pulses bilateral GI/Abdominal exam: PRESENT: normal bowel sounds, soft Rectal exam: PRESENT: deferred Neurological exam: PRESENT: alert, oriented to place, CN II-XII grossly intact Psychiatric exam: PRESENT: appropriate affect, normal mood Skin exam: PRESENT: dry, intact, warm Results Laboratory Results: 10/18/16 06:26 10/18/16 06:26 10/18/16 10/18/16 06:26 06:26 WBC 7.9 RBC 3.38 L Hgb 10.7 L Hct 31.9 L MCV 95 MCH 31.7 MCHC 33.5 RDW 14.4 H Plt Count 182 Seg Neutrophils % 84.0 H Lymphocytes % 6.8 L Monocytes % 8.2 Eosinophils % 0.3 Basophils % 0.7 Absolute Neutrophils 6.6 Absolute Lymphocytes 0.5 Absolute Monocytes 0.6 Absolute Eosinophils 0.0 Absolute Basophils 0.1 Sodium 137.3 Potassium 4.7 Chloride 98 Carbon Dioxide 28 Anion Gap 11 BUN 22 H Creatinine 1.15 Est GFR ( Amer) 54 L Est GFR (Non-Af Amer) 45 L Glucose 158 H Calcium 8.5 10/15/16 10/15/16 10/15/16 16:37 16:37 22:20 Creatine Kinase 46 49 CK-MB (CK-2) 0.82 Troponin I < 0.012 NT-Pro-B Natriuret Pep 10/15/16 10/16/16 10/16/16 22:20 04:45 04:45 Creatine Kinase 52 CK-MB (CK-2) Troponin I 0.013 0.016 NT-Pro-B Natriuret Pep [id number] H Impressions: Retrograde Pyelogram 10/15/16 00:00 IMPRESSION: Left double-J stent in good positioning Assessment & Plan - Diagnosis (1) Paroxysmal atrial fibrillation Is this a current diagnosis for this admission?: Yes (2) Chronic kidney disease (CKD) stage G1/A3, glomerular filtration rate (GFR) equal to or greater than 90 mL/min/1.73 square meter and albuminuria creatinine ratio greater than 300 mg/g Is this a current diagnosis for this admission?: Yes
--- NOTE | 2016-10-18 20:38 | PROGRESS NOTE E ---
Progress Note NAME: MICHELLE HAYDEN : 1930 AGE: 86Y DATE: 10/18/2016 ROOM: 335 SUBJECTIVE: The patient continues to be in atrial fibrillation with controlled ventricular response. The patient denies any chest pain or discomfort, but the patient is very confused today. She is disoriented to place and time, but she recognizes me. She denies any chest pain or discomfort. There is no PND, orthopnea. There is no cough or sputum production. There are no ventricular arrhythmias. There is no bleeding on Eliquis. There is no pedal edema. OBJECTIVE: GENERAL: On examination the patient is morbidly obese. At present the patient is confused and disoriented x2. VITAL SIGNS: She is afebrile with a temperature of 98.4 degrees Fahrenheit, pulse is 83 beats per minute, blood pressure is 134/54, respirations are 19 per minute, O2 saturations are 92% on room air. HEAD: Atraumatic, normocephalic. EYES: Pupils are equal, round and regular, react to light and accommodation. Extraocular movements are normal. There is no conjunctival pallor. There is no scleral icterus. EAR, NOSE, AND THROAT: Negative. NECK: Supple. There is no JVD. There is no lymphadenopathy. There is no goiter. Carotids are equal. There is no bruit. Trachea is central. LUNGS: Clear to auscultation and percussion. There are no rhonchi, rales, or wheezing. HEART: S1 and S2 is heard. There is no S3 gallop. There is no S4 gallop. There is a systolic murmur in the left sternal border and the apex. There is no rub. S1 is of variable intensity. ABDOMEN: Soft, nontender. There is no hepatosplenomegaly. Bowel sounds are well heard. EXTREMITIES: Femorals are deep. There are no femoral bruits. Femorals are diminished. Leg pulses are diminished. There is no pedal edema. There is no DVT or cellulitis. There is no calf tenderness. CENTRAL NERVOUS SYSTEM: The patient is conscious, awake, disoriented x2. She is aware of person but disoriented to place and time. There are no focal deficits. PSYCHIATRIC: The patient does not appear to be agitated. No further psychiatric examination can be made since the patient is confused. LABORATORY DATA: The patient's white count is 7900, hemoglobin is 10.7, hematocrit is 31.9, platelet count is 182,000. The patient's sodium is 137.3, potassium 4.7, chloride 98, CO2 is 28. The patient's BUN is 22, creatinine is 1.15, GFR is reduced to 45 mL, which is chronic kidney disease stage 3. Glucose is 158, calcium is 138. IMPRESSION: 1. NEW ONSET ATRIAL FIBRILLATION. The patient continues to be in atrial fibrillation. Note the patient's heart rate is controlled, we increased the atenolol to 50 mg p.o. q.12 hours. 2. 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 The patient is on Januvia, continue that. 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 3. HYPERTENSION. Well controlled. 4. CHRONIC KIDNEY DISEASE STAGE 3. 5. CORONARY ARTERY DISEASE. The patient with a history of left anterior descending stent, no anginal symptoms. 6. DIABETIC NEUROPATHY OF THE FEET. 7. URINARY TRACT INFECTION. The patient is on antibiotics. 8. HYPERLIPIDEMIA. 9. DISORIENTATION AND ALTERED MENTAL STATUS AND CONFUSION. RECOMMENDATIONS: 1. Continue current treatment. 2. We will watch the patient's neuro status. If this deteriorates then we will get a CT scan. Note that there is no neck stiffness on the exam. TIME SPENT: Note 40 minutes spent on the patient, more than 50% of the time spent on direct patient care, review of the patient's medication, and discussions with the patient and with the attending physician covering Dr. Ortiz. We will follow with you. Note more than 50% of the time was spent on direct patient care. DICTATING PHYSICIAN: RAFAEL DONALD M.D. [id number] PHY#: [id number] ID: [id number] JOB#: [id number] ACCT: [id number] cc: >
[2016-10-18] MEDS: ATORVASTATIN CALCIUM 40 MG TABLET PO SCH (22:42)
[2016-10-18] MEDS: INSULIN LISPRO 100 UNIT/ML 3 ML VIAL SUBCUT PRN (22:42)
[2016-10-19] MEDS: SITAGLIPTIN PHOSPHATE 50 MG TABLET PO SCH (10:55)
[2016-10-19] MEDS: ESCITALOPRAM OXALATE 10 MG TABLET PO SCH (10:55)
[2016-10-19] MEDS: ATENOLOL 50 MG TABLET PO SCH ×2 (10:55→21:22)
[2016-10-19] MEDS: PREGABALIN 50 MG CAPSULE PO SCH ×2 (10:55→21:22)
[2016-10-19] MEDS: ISOSORBIDE MONONITRATE 30 MG TAB.ER.24H PO SCH (10:56)
[2016-10-19] MEDS: POTASSIUM CHLORIDE 10 MEQ TABLET.SA PO SCH (10:56)
[2016-10-19] MEDS: CIPROFLOXACIN HCL 500 MG TABLET PO SCH ×2 (10:56→21:23)
[2016-10-19] MEDS: FUROSEMIDE 40 MG TABLET PO SCH (10:56)
[2016-10-19] MEDS: ACETAMINOPHEN 325 MG TABLET PO PRN (10:56)
[2016-10-19] MEDS: NYSTATIN TOPICAL POWDER 15 GM TP SCH (10:57)
[2016-10-19] MEDS: DOCUSATE SODIUM 100 MG CAPSULE PO SCH ×2 (10:58→18:00)
[2016-10-19] MEDS: ZINC OXIDE 20% OINTMENT 28.35 GM TP SCH (10:58)
[2016-10-19] MEDS: APIXABAN 2.5 MG TABLET PO SCH ×2 (10:58→18:00)
--- NOTE | 2016-10-19 12:23 | PROGRESS NOTE E ---
Progress Note NAME: MICHELLE HAYDEN : 1930 AGE: 86Y DATE: 10/19/2016 ROOM: 335 SUBJECTIVE: The patient remains in atrial fibrillation. She is now awake, alert, oriented x3. She is not confused anymore. She denies any chest pain or discomfort. There is no PND or orthopnea. There is no leg edema. There is no ventricular arrhythmia seen. There are no TIA or CVA symptoms. There is no bleeding on Eliquis. OBJECTIVE: GENERAL: The patient is morbidly obese, at present in no acute distress. VITAL SIGNS: She is afebrile with a temperature of 97.3 degrees Fahrenheit orally. Pulse is 103 beats per minute. Blood pressure is 147/74. Respirations are 20 per minute. O2 saturations are 95% on room air. HEENT: Head is atraumatic and normocephalic. Eyes: Pupils are equal, round, regular, reactive to light and accommodation. Extraocular movements are normal. There is no conjunctival pallor. There is no scleral icterus. ENT is negative. NECK: Supple. There is no JVD. Carotids are equal. There is no bruit. Trachea is central. LUNGS: Clear to auscultation and percussion. There are no rhonchi, rales or wheezing. HEART: S1 and S2 are heard. S1 is of variable intensity. There is no S3 gallop. There is no S4 gallop. There is systolic murmur at the left sternal border and the apex. There is no rub. ABDOMEN: Soft, nontender, obese. There is no hepatosplenomegaly. Bowel sounds are well heard. There are no tender areas or masses. EXTREMITIES: Femorals are deep. There are no femoral bruits. Femorals are diminished. Leg pulses are diminished. There is no pedal edema. There is no DVT or cellulitis. There is no calf tenderness. There is no cyanosis or clubbing. CENTRAL NERVOUS SYSTEM: The patient is conscious, awake, alert, oriented x3 with no focal deficit. PSYCHIATRIC: The patient's judgment and insight are intact. Affect is normal. She is not confused anymore. DIAGNOSTIC TEST RESULTS: The patient had a CT of the head without contrast which shows no evidence of bleeding or infarction, any masses, or any acute process. The patient's blood sugar is 177. Earlier, it was 148. ASSESSMENT: 1. ATRIAL FIBRILLATION SEEMS TO BE CHRONIC. PATIENT IS ON ATENOLOL 50 MG P.O. Q. 12 HOURS, AND THE PATIENT IS ALSO ON ELIQUIS FOR STROKE PROPHYLAXIS. 2. 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 PATIENT IS ON JANUVIA. CONTINUE THAT. THE PATIENT IS WITHOUT LONG-TERM INSULIN USE. 3. ALTERED MENTAL STATUS. NOW MENTAL STATUS BACK TO NORMAL, AND THE PATIENT IS NOT CONFUSED ANYMORE. SHE IS AWAKE, ALERT, ORIENTED X3. 4. HYPERTENSION. CONTINUE HER BLOOD PRESSURE MEDICATION. 5. CORONARY ARTERY DISEASE. PATIENT HAS A HISTORY OF LEFT ANTERIOR DESCENDING ARTERY STENT WITH NO ANGINAL SYMPTOMS. 6. DIABETIC NEUROPATHY OF THE FEET. 7. URINARY TRACT INFECTION. 8. HYPERLIPIDEMIA. 9. CHRONIC KIDNEY DISEASE STAGE 3. PLAN: Continue the patient's atenolol. Will see if we need to add digoxin if the patient's heart rate still seems to be up. Continue blood pressure medications. Continue Eliquis. Continue atenolol at 50 mg p.o. q. 12 hours. Note: 35 minutes spent on this patient with more than 50% of time spent in direct patient care and also discussions with the patient and the patient's daughter. The plan of bringing the patient back after 6-8 weeks on Eliquis and trying to chemically or electrically cardiovert the patient discussed with the patient and the patient's daughter. Also discussed with the attending physician covering, Dr. Ortiz. Will follow with you. DICTATING PHYSICIAN: RAFAEL DONALD M.D. [id number] ARTURO#: [id number] ID: [id number] JOB#: [id number] ACCT: [id number] cc: >
--- NOTE | 2016-10-19 16:09 | PDOC PROGRESS REPORT ---
Subjective Progress Note for:: 10/19/16 Subjective:: Patient is more lucid today, the nurses report no new complaints. Physical Exam Vital Signs: Temp Pulse Resp BP Pulse Ox 97.1 F 54 L 20 122/67 100 10/19/16 15:16 10/19/16 15:16 10/19/16 15:16 10/19/16 15:16 10/19/16 15:16 Intake & Output 10/18/16 10/19/16 10/20/16 06:59 06:59 06:59 Intake Total 260 515 610 Output Total 300 150 Balance -40 365 610 Weight 90.5 kg 88.9 kg General appearance: PRESENT: no acute distress Eye exam: PRESENT: PERRLA Respiratory exam: PRESENT: clear to auscultation wei Cardiovascular exam: PRESENT: +S1, +S2 Results Laboratory Results: 10/18/16 06:26 10/18/16 06:26 10/15/16 10/15/16 10/15/16 16:37 16:37 22:20 Creatine Kinase 46 49 CK-MB (CK-2) 0.82 Troponin I < 0.012 NT-Pro-B Natriuret Pep 10/15/16 10/16/16 10/16/16 22:20 04:45 04:45 Creatine Kinase 52 CK-MB (CK-2) Troponin I 0.013 0.016 NT-Pro-B Natriuret Pep [id number] H Impressions: Retrograde Pyelogram 10/15/16 00:00 IMPRESSION: Left double-J stent in good positioning Head CT 10/18/16 21:00 IMPRESSION: NORMAL BRAIN CT WITHOUT CONTRAST. Assessment & Plan - Diagnosis (1) Paroxysmal atrial fibrillation Is this a current diagnosis for this admission?: Yes (2) Chronic kidney disease (CKD) stage G1/A3, glomerular filtration rate (GFR) equal to or greater than 90 mL/min/1.73 square meter and albuminuria creatinine ratio greater than 300 mg/g Is this a current diagnosis for this admission?: Yes
--- NOTE | 2016-10-19 17:08 | CONSULTATION REPORT E ---
Consultation Report NAME: MICHELLE HAYDEN : 1930 AGE: 86Y DATE: 10/16/2016 335 A TO: RAFAEL DONALD M.D. FROM: DARIELA LYNN M.D. Requesting Physician REASON FOR CONSULTATION: New onset atrial fibrillation. 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 She has had several stents placed in the left kidney for ureteral stricture. The previous stent was removed, and subsequently since there was a mild ureteral stricture and mild hydronephrosis, she had a stent placed. Subsequent to that, the patient had an EKG due to irregular heart beat and was found to be in atrial fibrillation. The patient has had a remote history of atrial fibrillation, none in the recent past although she has had palpitations. She denies any chest pain or discomfort. She denies any PND or orthopnea. There is no history of leg edema. There are no symptoms of TIA or CVA. PAST MEDICAL HISTORY: Positive for: 1. History of hypertension. 2. History of coronary artery disease. 3. History of stents in the LAD and RCA in 2003, no recent anginal symptoms for a long time. 4. Past history of congestive heart failure, none recently. 5. History of chronic kidney disease secondary to ureteral stricture. 6. History of diabetes mellitus type 2, non-insulin dependent. 7. She has past history of colorectal cancer status post colon resection and also colostomy. The patient has a colostomy and has not had revision of that. 8. She also has a history of GERD. 9. She has a history of asthma and has shortness of breath with exertion. 10. She also has hyperlipidemia. She states that she has been bedridden and cannot walk due to arthritis and neuropathy. There is no history of TIA or CVA. 11. She has a history of anxiety and depression. PAST SURGICAL HISTORY: Positive for: 1. Appendectomy. 2. Cardiac catheterization. 3. Cholecystectomy. 4. Also, the patient had a colon resection for colorectal cancer and a colostomy placed. 5. She has also had cataract surgery. FAMILY HISTORY: Family history is positive for hypertension, diabetes mellitus. Negative for coronary artery disease. ALLERGIES: The patient is allergic to: 1. PERSANTINE. 2. NUBAIN. 3. PENICILLIN. 4. SULFA. 5. ASPIRIN. 6. CARDIOLITE. 7. IVP DYE. DISPOSITION: The patient is a FULL CODE. Her daughter is the surrogate healthcare decision maker. REVIEW OF SYSTEMS: CONSTITUTIONAL: Denies any fevers, chills, or rigors. Complains of generalized fatigue and weakness. HEAD: Denies any headaches or head injury or dizziness. EYES: No history of amblyopia or diplopia. No history of amaurosis fugax. EARS: No history of tinnitus. No history of hearing loss. No history of recurrent sore throats. NOSE: No history of hay fever. No history of nosebleeds. No history of nasal polyps. MOUTH: No history of altered taste sensation. No ulcers in the mouth. No bleeding from the gums. THROAT: No history of odynophagia or dysphagia. No history of recurrent sore throats. SKIN: No history of skin rashes. No history of petechiae or ecchymosis. No skin lesions. There is no psoriasis. There is pruritus. There is no yellowish discoloration of the skin. There is no skin cancer. NECK: No painful or painless swelling in the neck. No goiter. No symptoms of C-spine arthritis. LUNGS: No history of asthma or COPD. No history of sleep apnea. No history of pulmonary embolism. No history of cough or sputum production. No wheezing. CARDIAC: History of coronary artery disease. No history of NV. No anginal symptoms since a long time. History of stents in the RCA and LAD in 2003. Past history of congestive heart failure, no recurrence. No history of PND, orthopnea, or leg edema. Denies any palpitations although the patient in the past has had palpitations. She has a remote history of atrial fibrillation, but now this seems to be new onset/recurrence of atrial fibrillation with ventricular response in the 108 range. No history of rheumatic fever. No history of pedal edema. Note that the patient is bedridden and she does not walk as per the patient due neuropathy and arthritis of the legs. GASTROINTESTINAL: History of GERD present. No history of fatty food intolerance. No history of hepatitis. No history of altered bowel movements. No history of GI bleed. MUSCULOSKELETAL: History of arthritis present. No history of collagen vascular disease. RENAL: History of chronic kidney disease. At present, the patient has stage 4 chronic kidney disease. History of ureteral strictures on the left side. History of multiple stents in the ureters. No symptoms of UTI. No history of hematuria, polyuria, or dysuria. ENDOCRINE: History of diabetes mellitus type 2, non-insulin dependent. History of diabetic neuropathy and history of diabetic nephropathy. No history of polydipsia or polyuria. No history of heat or cold intolerance. No history of thyroid disorder. No history of hirsutism. No history of excessive sweating. CENTRAL NERVOUS SYSTEM: No history of TIA or CVA. No history of seizures, headaches, or migraines. PSYCHIATRIC: History of anxiety and depression present. No history of suicidal ideation. VASCULAR: No history of calf or buttock claudication. No history of DVT. HEMATOLOGIC: No history of bleeding diathesis. No history of clotting disorders. Note that the patient has no contraindication for chronic anticoagulation. MEDICATIONS: 1. She is on Tylenol 650 mg p.o. q.6 hours p.r.n. 2. She is on atorvastatin 40 mg p.o. at bedtime. 3. She is on Cipro 500 mg p.o. q.12 hours. 4. She is on dextrose/glucose 40% gel 15 g and 30 g p.o. p.r.n. for hypoglycemia. 5. She is on dextrose 50% 25 g and 12.5 g IV, respectively, p.r.n. hypoglycemia. 6. She is on Cardizem drip at 5 mg per hour. 7. She is on Colace 100 mg p.o. b.i.d. 8. She is on Lexapro 10 mg p.o. q.a.m. 9. She is on Pepcid 20 mg IV at bedtime. 10. She is on Lasix 40 mg p.o. q.a.m. 11. She is on glucagon 1 mg IM p.r.n. hypoglycemia. 12. She is on Accu-Chek a.c. t.i.d. and sliding scale regular insulin coverage. 13. She is on isosorbide mononitrate extended release 30 mg p.o. daily. 14. She is on Zofran 4 mg IV q.4 hours p.r.n. 15. She is on potassium chloride 10 mEq p.o. daily. 16. She is on Lyrica 15 mg p.o. q.12 hours. PHYSICAL EXAMINATION: GENERAL: On examination, the patient is morbidly obese, at present in no acute distress. VITAL SIGNS: She is afebrile with a temperature of 97.2 degrees Fahrenheit. Pulse is 78 beats per minute. Blood pressure 108/54. Respirations are 18 per minute. O2 saturations are 98% on room air. HEENT: Head is atraumatic, normocephalic. Eyes: Pupils are equal, round, regular, reactive to light and accommodation. Extraocular movements normal. There is no conjunctival pallor. There is no scleral icterus. Ears: Tympanic membranes are intact. External auditory canals are clear. Nose: There is no deviated nasal septum. There is no inflammation of the nasal mucous membranes. Mouth: Mucous membranes of the mouth are moist. Tongue is moist. There are no ulcers. There is no bleeding from the gums. Throat: There is no redness of the oropharynx. There are no exudates. SKIN: There are no skin rashes. There is no petechiae or ecchymosis. There are no skin lesions. NECK: Supple. There is no JVD. There is no lymphadenopathy. Carotids are equal; there is no bruit. There is no goiter. Trachea is central. LUNGS: Clear to auscultation and percussion. CARDIOVASCULAR: S1, S2 are heard. S1 is of variable intensity. There is no S3 gallop. There is no S4 gallop. There is systolic murmur at left sternal border and the apex. There is no rub. ABDOMEN: Obese, nontender. There is no hepatosplenomegaly. Bowel sounds are well heard. There are no tender areas or masses. EXTREMITIES: Femorals are very deep. The femorals are diminished. There are no femoral bruits. Leg pulses are diminished. There is no pedal edema. There is no DVT or cellulitis. There is no cyanosis or clubbing. There is no calf tenderness. CENTRAL NERVOUS SYSTEM: The patient is conscious, awake, alert, oriented x3 with no focal deficits. PSYCHIATRIC: The patient's judgment and insight are intact. Her affect is normal. The patient does not appear to be agitated or depressed at present. DIAGNOSTIC TESTS: The patient's retrograde pyelogram done yesterday shows mild left-sided mid ureteral stricture with mild hydronephrosis. The patient had a stent placed in the ureteral stricture which is dilated. The patient's EKG done on 10/15/2016 shows atrial fibrillation with a ventricular response of 106 beats per minute. The patient's EKG done this morning also continues to show atrial fibrillation. The patient's ProTime is 13.4. INR is 0.99. The patient's sodium is 136.9, potassium 4.8, chloride 101, CO2 28. The patient's BUN is 32; creatinine is 2.20. GFR is reduced at 21 which is chronic kidney disease stage 4. The patient's calcium is 8.4. Glucose is 205. Magnesium is low at 1.4. Anti-ProBNP is 12,400. Her troponin-I is negative x3. Also, CPK-MB is negative x3. The patient's white count is 13,500; hemoglobin is 10.4; hematocrit is 30.4; platelet count is 186,000. IMPRESSION: 1. New onset of atrial fibrillation. Note that the patient has a very remote history of atrial fibrillation per her chart. Hence, this could be considered new onset atrial fibrillation. We will give the patient 400 mg of amiodarone p.o. b.i.d. today to see if this will convert the patient to sinus rhythm. Also, would recommend that the patient be on long-term anticoagulation. We will discuss with the patient Coumadin versus the newer anticoagulation agents. She prefers to be on the newer anticoagulation agents. She knows that there is no antidote if the patient should bleed on the newer anticoagulation medication. The risks and benefits of both Coumadin and the other newer anticoagulation were discussed with the patient. The risk of bleeding including major bleeding such as intracerebral hemorrhage, retroperitoneal bleed, gastrointestinal bleed, and bleeding elsewhere have all been discussed with the patient. 2. Diabetes mellitus type 2 with kidney disease. 3. Hypertension. 4. Chronic kidney disease, at present stage 4. 5. Coronary artery disease with history of stents in the left anterior descending and right coronary artery. No anginal symptoms. 6. 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 7. Past history of urinary tract infection and recent stent placement. Patient is no Cipro. 8. Hyperlipidemia. 9. Anxiety and depression. 10. Ambulatory dysfunction. The patient has been bedridden and cannot walk. 11. Colorectal cancer status post colostomy, status post chemotherapy and radiation therapy. The patient states she has been cured of the cancer. We will see the response of the patient to amiodarone. Discussed with Dr. Lynn. He will start the patient on Eliquis 2.5 mg p.o. b.i.d. We will follow with you. TIME SPENT: Note that this consult was done 10/16/2016. 40 minutes spent on the patient with more than 50% of the time spent in direct patient care and also review of the patient's office notes and her admission notes here in this hospital and also discussions with the patient and also discussions with Dr. Dariela Lynn, the attending on record. DICTATING PHYSICIAN: RAFAEL DONALD M.D. [id number] PHY#: [id number] ID: [id number] JOB#: [id number] ACCT: [id number] cc:RAFAEL DONALD M.D. >
[2016-10-19] MEDS: ATORVASTATIN CALCIUM 40 MG TABLET PO SCH (21:22)
[2016-10-19] MEDS: FAMOTIDINE INJ/PF 20 MG/2 ML SDV IV SCH (21:23)
[2016-10-19] MEDS: INSULIN LISPRO 100 UNIT/ML 3 ML VIAL SUBCUT PRN (21:35)
[2016-10-20] MEDS: ESCITALOPRAM OXALATE 10 MG TABLET PO SCH (09:36)
[2016-10-20] MEDS: ISOSORBIDE MONONITRATE 30 MG TAB.ER.24H PO SCH (09:37)
[2016-10-20] MEDS: FUROSEMIDE 40 MG TABLET PO SCH (09:37)
[2016-10-20] MEDS: SITAGLIPTIN PHOSPHATE 50 MG TABLET PO SCH (09:37)
[2016-10-20] MEDS: PREGABALIN 50 MG CAPSULE PO SCH ×2 (09:37→21:36)
[2016-10-20] MEDS: ATENOLOL 50 MG TABLET PO SCH ×2 (09:37→21:37)
[2016-10-20] MEDS: POTASSIUM CHLORIDE 10 MEQ TABLET.SA PO SCH (09:37)
[2016-10-20] MEDS: CIPROFLOXACIN HCL 500 MG TABLET PO SCH ×2 (09:37→21:37)
[2016-10-20] MEDS: NYSTATIN TOPICAL POWDER 15 GM TP SCH (09:38)
[2016-10-20] MEDS: APIXABAN 2.5 MG TABLET PO SCH ×2 (09:40→17:03)
[2016-10-20] MEDS: DOCUSATE SODIUM 100 MG CAPSULE PO SCH ×2 (09:40→17:06)
[2016-10-20] MEDS: ZINC OXIDE 20% OINTMENT 28.35 GM TP SCH (12:15)
[2016-10-20] MEDS: INSULIN LISPRO 100 UNIT/ML 3 ML VIAL SUBCUT PRN ×2 (13:33→17:04)
--- NOTE | 2016-10-20 13:39 | PROGRESS NOTE E ---
Progress Note NAME: MICHELLE HAYDEN : 1930 AGE: 86Y DATE: 10/20/2016 ROOM: 335 SUBJECTIVE: The patient denies any chest pain or discomfort. She continues to be in atrial fibrillation with a controlled ventricular response. There is no PND, orthopnea, or leg edema. There are no anginal symptoms. There are no TIA or CVA symptoms. There is no bleeding on Eliquis. Note that the patient is slightly upset since she was recommended to go to a retirement facility by the attending physician, Dr. Ortiz. OBJECTIVE: GENERAL: At present, the patient is morbidly obese in no acute distress. VITAL SIGNS: She is afebrile with a temperature of 97.4 degrees Fahrenheit, pulse is 89 beats per minute, blood pressure is 132/73, respirations 19 per minute, O2 saturations are 100% on 2 L nasal cannula. HEAD: Atraumatic, normocephalic. EYES: Pupils are equal, round, regular, reactive to light and accommodation. There is no conjunctival pallor. There is no scleral icterus. Extraocular movements are normal. ENT: Negative. NECK: Supple. There is no JVD. Carotids are equal. There is no bruit. Trachea is central. LUNGS: Clear to auscultation and percussion. There is no rhonchi, rales, or wheezing. CARDIOVASCULAR: S1 and S2 are heard. S1 is of variable intensity. There is no S3 gallop. There is no S4 gallop. There is a systolic murmur in the left sternal border of the apex. There is no rub. ABDOMEN: Soft, nontender, obese. There is no hepatosplenomegaly. Bowel sounds are well heard. There are no tender areas or masses. EXTREMITIES: Femorals are deep. There are no femoral bruits. Femorals are diminished. Leg pulses are diminished. There is no pedal edema. There is no DVT or cellulitis. There is no calf tenderness. There is no cyanosis or clubbing. CENTRAL NERVOUS SYSTEM: The patient is conscious, awake, alert, oriented x3 with no focal deficit. PSYCHIATRIC: The patient's judgment and insight are intact. Her affect is normal. LABORATORY: The patient's glucose is 214. IMPRESSION: 1. ATRIAL FIBRILLATION SEEMS TO BE CHRONIC. Patient is on atenolol 50 mg p.o. q. 12 hours, rate is controlled, and the patient is also on Eliquis for stroke prophylaxis. 2. 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 Patient is on Januvia. Patient is without long-term insulin use. Blood sugar is slightly on the higher side. 3. ALTERED MENTAL STATUS, RESOLVED. The etiology is not clear. 4. HYPERTENSION. Blood pressure well controlled. Continue current medication. 5. CORONARY ARTERY DISEASE. History of stent in the RCA and LAD. Patient with no anginal symptoms. Cardiac status stable. Continue Imdur and beta melvina. 6. DIABETIC NEUROPATHY OF THE FEET. 7. URINARY TRACT INFECTION. This most likely is resolved with antibiotics. 8. HYPERLIPIDEMIA. 9. CHRONIC KIDNEY DISEASE STAGE 3. RECOMMENDATIONS: The patient's cardiac status is stable. Continue her atenolol. Continue Eliquis. Continue her isosorbide mononitrate. Continue Januvia. Would recommend increasing the dose of Januvia or adding another medication to keep the blood sugars down. NOTE: Thirty minutes spent on the patient with more than 50% of the time spent on direct patient care and also review of the patient's medication, discussion with the patient and the patient's daughter, and also discussions with Dr. Ortiz *------* record. Cardiac status is stable. Will sign off and follow the patient in the office since she is a patient of mine. DICTATING PHYSICIAN: RAFAEL DONALD M.D. [id number] PHY#: [id number] ID: [id number] JOB#: [id number] ACCT: [id number] cc: >
--- NOTE | 2016-10-20 13:39 | PDOC PROGRESS REPORT ---
Subjective Progress Note for:: 10/20/16 Subjective:: pt is doing well daughter on bedsite and s/o unable to take care at home now and d/w pt and s/o go to rehab and pt agree above it nocp no sob no fever Physical Exam Vital Signs: Temp Pulse Resp BP Pulse Ox 97.4 F 47 L 19 116/59 L 100 10/20/16 12:05 10/20/16 12:05 10/20/16 12:05 10/20/16 12:05 10/20/16 12:05 Intake & Output 10/19/16 10/20/16 10/21/16 06:59 06:59 06:59 Intake Total 515 1200 150 Output Total 150 375 150 Balance 365 825 0 Weight 88.9 kg 88.7 kg General appearance: PRESENT: no acute distress Head exam: PRESENT: normocephalic Eye exam: PRESENT: PERRLA Neck exam: PRESENT: full ROM Respiratory exam: PRESENT: clear to auscultation wei Cardiovascular exam: PRESENT: irregular rhythm, +S1, +S2 GI/Abdominal exam: PRESENT: normal bowel sounds, soft. ABSENT: tenderness Extremities exam: ABSENT: pedal edema Neurological exam: PRESENT: alert, awake, oriented to person, oriented to place Psychiatric exam: PRESENT: anxious Skin exam: PRESENT: dry Results Laboratory Results: 10/18/16 06:26 10/18/16 06:26 10/16/16 09:25 Clean Catch Midstream Urine Culture - Final Proteus Mirabilis Enterococcus Faecalis(Group D) 10/15/16 10/15/16 10/15/16 16:37 16:37 22:20 Creatine Kinase 46 49 CK-MB (CK-2) 0.82 Troponin I < 0.012 NT-Pro-B Natriuret Pep 10/15/16 10/16/16 10/16/16 22:20 04:45 04:45 Creatine Kinase 52 CK-MB (CK-2) Troponin I 0.013 0.016 NT-Pro-B Natriuret Pep 16948 H Impressions: Retrograde Pyelogram 10/15/16 00:00 IMPRESSION: Left double-J stent in good positioning Head CT 10/18/16 21:00 IMPRESSION: NORMAL BRAIN CT WITHOUT CONTRAST. Assessment & Plan - Diagnosis (1) Atrial fibrillation Qualifiers: Atrial fibrillation type: paroxysmal Qualified Code(s): I48.0 - Paroxysmal atrial fibrillation Is this a current diagnosis for this admission?: YesPlan: cont curr med as per d/w dr browne s/o pt d/c home (2) Anemia Qualifiers: Iron deficiency anemia type: unspecified iron deficiency Is this a current diagnosis for this admission?: YesPlan: stable (3) Back pain Qualifiers: Back pain location: low back pain Is this a current diagnosis for this admission?: YesPlan: chronci cont pain med (4) Diabetes Qualifiers: Diabetes mellitus type: type 2 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 Is this a current diagnosis for this admission?: YesPlan: cont curr med (5) Hyperlipemia Qualifiers: Hyperlipidemia type: unspecified Qualified Code(s): E78.5 - Hyperlipidemia, unspecified Is this a current diagnosis for this admission?: YesPlan: cont curr med (6) Neuropathy Is this a current diagnosis for this admission?: YesPlan: cont lyrica (7) Rectal cancer Plan: stable (8) Hypertension Qualifiers: Hypertension type: essential hypertension Qualified Code(s): I10 - Essential (primary) hypertension Is this a current diagnosis for this admission?: YesPlan: stable (9) Urinary tract infection Qualifiers: Urinary tract infection type: site unspecified Is this a current diagnosis for this admission?: YesPlan: send urine for culture start cipro (10) Renal failure Is this a current diagnosis for this admission?: Yes - Time Time Spent with patient: 15-24 minutes Medications reviewed and adjusted accordingly: Yes Anticipated discharge: SNF Within: within 24 hours - Inpatient Certification Medical Necessity: Need Close Monitoring Due to Risk of Patient Decompensation - Plan Summary Plan Summary: d/w pt and family and agree to go snf
[2016-10-20] MEDS: ACETAMINOPHEN 325 MG TABLET PO PRN (18:53)
[2016-10-20] MEDS: ATORVASTATIN CALCIUM 40 MG TABLET PO SCH (21:37)
[2016-10-20] MEDS: FAMOTIDINE INJ/PF 20 MG/2 ML SDV IV SCH (21:37)
[2016-10-21] MEDS: ACETAMINOPHEN 325 MG TABLET PO PRN ×2 (03:07→09:31)
--- NOTE | 2016-10-21 08:26 | PDOC TRANSFER SUMMARY ---
General - Admit/Disc Date/PCP Admission Date/Primary Care Provider: 10/15/16 17:07 BONITA LYNN MD Discharge Date: 10/21/16 - Discharge Diagnosis (1) Atrial fibrillation Is this a current diagnosis for this admission?: YesSummary: cont eliquis and atenolol (2) Anemia Is this a current diagnosis for this admission?: YesSummary: stable (3) Back pain Is this a current diagnosis for this admission?: YesSummary: stable (4) Diabetes Is this a current diagnosis for this admission?: YesSummary: cont curr med (5) Hyperlipemia Is this a current diagnosis for this admission?: YesSummary: stable (6) Neuropathy Is this a current diagnosis for this admission?: YesSummary: cont lyrica (7) Rectal cancer Summary: f/u with oncology dr mcmillan (8) Hypertension Is this a current diagnosis for this admission?: YesSummary: stable (9) Urinary tract infection Is this a current diagnosis for this admission?: YesSummary: on cipro (10) Renal failure Is this a current diagnosis for this admission?: YesSummary: resolved - Additional Information Home Medications: Atorvastatin Calcium [Lipitor 40 mg Tablet] 40 mg PO QHS 10/13/12 Omeprazole [Prilosec 20 mg Capsule] 20 mg PO BID 10/13/12 Saxagliptin HCl [Onglyza] 5 mg PO DAILY 10/13/12 Cholecalciferol (Vitamin D3) [Vitamin D3 1000 Unit Tablet] 1,000 unit PO DAILY # 0 tablet 09/09/13 Furosemide [Lasix 40 mg Tablet] 40 mg PO QAM #0 tablet 09/09/13 Pregabalin [Lyrica 50 mg Capsule] 50 mg PO Q12 #0 capsule 09/09/13 Atenolol [Tenormin 50 mg Tablet] 50 mg PO QHS 04/23/15 Escitalopram Oxalate [Lexapro 10 mg Tablet] 10 mg PO QAM 04/23/15 Escitalopram Oxalate [Lexapro] 5 mg PO QPM 04/23/15 Glimepiride [Amaryl] 2 mg PO QPM 04/23/15 Oxycodone HCl 1 tab PO Q4 PRN 07/20/15 Isosorbide Mononitrate [Imdur 60 mg Tablet.er] 30 mg PO DAILY 12/16/15 Ondansetron [Zofran Odt 4 mg Tablet] 1 - 2 tab PO Q4H PRN #15 tab.rapdis Potassium Chloride 1 cap PO DAILY 06/12/16 History of Present Illness Admission Date/PCP: 10/15/16 17:07 BONITA LYNN MD History of Present Illness: MICHELLE HAYDEN is a 86 year old female pt came today for out pt cystoscopy and stent remove per dr murry and s/ pprocedure pt hr go upto 120 and ekg was done and shows afib pt hada h/o afib in past pt see dr parmar for chf/cad p denied any chest pain no sob no abd pain no fever pt admitted for further evaution Hospital Course Hospital Course: This is a 86-year-old female with a history of rectal cancer status post surgery and chemotherapy and currently see oncology for an patient is doing very well. Without any medications patient's came to the outpatient procedure for the cystoscopy and removal of the stent per Dr. Murry and up to this procedure suspicion started developing on the rapid ventricular and irregular heartbeats and patient's was admitting the IMCU for further evaluation and treatment since seen by Dr. PARMAR and start the patient on anticoagulation and patient's of it under control with the beta melvina patient also have a urinary tract infection sensitive to the Cipro since doing very well at this. Discussed with the family patient's other comorbidities and patient's elbow pretty bad neuropathy from the chemotherapy and the diabetes rations unable to much and at this times patient's ascending to the rehabilitation further strengthening exercise. Physical Exam Vital Signs: Temp Pulse Resp BP Pulse Ox 98.0 F 82 18 135/68 H 98 10/21/16 07:47 10/21/16 07:47 10/21/16 07:47 10/21/16 07:47 10/21/16 07:47 Intake & Output 10/20/16 10/21/16 10/22/16 06:59 06:59 06:59 Intake Total 1200 335 Output Total 375 175 Balance 825 160 Weight 88.7 kg 87.4 kg General appearance: PRESENT: no acute distress Head exam: PRESENT: normocephalic Eye exam: PRESENT: PERRLA Mouth exam: PRESENT: neck supple Neck exam: ABSENT: carotid bruit, full ROM, JVD, lymphadenopathy, meningismus, tenderness, thyromegaly, tracheal deviation, tracheostomy, other Respiratory exam: ABSENT: accessory muscle use, chest wall tenderness, clear to auscultation wei, crackles, decreased breath sounds, prolonged expiratory phas, rales, retraction, rhonchi, stridor, symmetrical, tachypnea, unlabored, wheezes , other Cardiovascular exam: PRESENT: irregular rhythm, +S1, +S2 Pulses: ABSENT: normal carotid pulses, normal radial pulses, normal femoral pulses, normal dorsalis pedis pul, +1 pedal pulses bilateral, +2 pedal pulses bilateral, other GI/Abdominal exam: ABSENT: ascites, diminished bowel sounds, distended, firm, guarding, hernia, hyperactive bowel sounds, hypoactive bowel sounds, mass, Peters's sign, normal bowel sounds, organolmegaly, rebound, rigid, soft, tenderness, other Extremities exam: ABSENT: pedal edema Neurological exam: PRESENT: alert, awake, oriented to person, oriented to place , oriented to time, oriented to situation Psychiatric exam: PRESENT: normal mood Skin exam: PRESENT: normal color Results Laboratory Results: 10/18/16 06:26 10/18/16 06:26 10/16/16 09:25 Clean Catch Midstream Urine Culture - Final Proteus Mirabilis Enterococcus Faecalis(Group D) 10/15/16 10/15/16 10/15/16 16:37 16:37 22:20 Creatine Kinase 46 49 CK-MB (CK-2) 0.82 Troponin I < 0.012 NT-Pro-B Natriuret Pep 10/15/16 10/16/16 10/16/16 22:20 04:45 04:45 Creatine Kinase 52 CK-MB (CK-2) Troponin I 0.013 0.016 NT-Pro-B Natriuret Pep [id number] H Impressions: Retrograde Pyelogram 10/15/16 00:00 IMPRESSION: Left double-J stent in good positioning Head CT 10/18/16 21:00 IMPRESSION: NORMAL BRAIN CT WITHOUT CONTRAST. Status: Imported from PACS Transfer Plan - Disposition Transfer Plan: Patient at this point transfer the nursing facility - Time Spent with Patient Time spent with patient: Greater than 30 Minutes Qualifiers PATEINT BEING DISCHARGED WITH ANY OF THE FOLLOWING DIAGNOSIS?: No VTE patient discharged on overlapping Therapy?: Yes Plan Discharge Plan: Patient is discharged to the rehabilitation facility very extensive discussed with the patient and the daughter + and discuss about the all new medication and discuss about the or the test results Time Spent: Greater than 30 Minutes
--- NOTE | 2016-10-21 08:32 | PDOC TRANSFER SUMMARY ---
General - Admit/Disc Date/PCP Admission Date/Primary Care Provider: 10/15/16 17:07 BONITA LYNN MD Discharge Date: 10/21/16 - Discharge Diagnosis (1) Atrial fibrillation Is this a current diagnosis for this admission?: Yes (2) Anemia Is this a current diagnosis for this admission?: Yes (3) Back pain Is this a current diagnosis for this admission?: Yes (4) Diabetes Is this a current diagnosis for this admission?: Yes (5) Hyperlipemia Is this a current diagnosis for this admission?: Yes (6) Neuropathy Is this a current diagnosis for this admission?: Yes (8) Hypertension Is this a current diagnosis for this admission?: Yes (9) Urinary tract infection Is this a current diagnosis for this admission?: Yes (10) Renal failure Is this a current diagnosis for this admission?: Yes - Additional Information Discharge Activity: Activity As Tolerated Home Medications: Atorvastatin Calcium [Lipitor 40 mg Tablet] 40 mg PO QHS 10/13/12 Omeprazole [Prilosec 20 mg Capsule] 20 mg PO BID 10/13/12 Saxagliptin HCl [Onglyza] 5 mg PO DAILY 10/13/12 Cholecalciferol (Vitamin D3) [Vitamin D3 1000 Unit Tablet] 1,000 unit PO DAILY # 0 tablet 09/09/13 Furosemide [Lasix 40 mg Tablet] 40 mg PO QAM #0 tablet 09/09/13 Pregabalin [Lyrica 50 mg Capsule] 50 mg PO Q12 #0 capsule 09/09/13 Atenolol [Tenormin 50 mg Tablet] 50 mg PO QHS 04/23/15 Escitalopram Oxalate [Lexapro 10 mg Tablet] 10 mg PO QAM 04/23/15 Escitalopram Oxalate [Lexapro] 5 mg PO QPM 04/23/15 Glimepiride [Amaryl] 2 mg PO QPM 04/23/15 Oxycodone HCl 1 tab PO Q4 PRN 07/20/15 Isosorbide Mononitrate [Imdur 60 mg Tablet.er] 30 mg PO DAILY 12/16/15 Ondansetron [Zofran Odt 4 mg Tablet] 1 - 2 tab PO Q4H PRN #15 tab.rapdis Potassium Chloride 1 cap PO DAILY 06/12/16 Apixaban [Eliquis 2.5 mg Tablet] 2.5 mg PO BID #60 tablet 10/21/16 Atenolol [Tenormin 50 mg Tablet] 50 mg PO Q12 #60 tablet 10/21/16 Ciprofloxacin HCl [Cipro 500 mg Tablet] 500 mg PO Q12 #10 tablet 10/21/16 History of Present Illness Admission Date/PCP: 10/15/16 17:07 BONITA LYNN MD Physical Exam Vital Signs: Temp Pulse Resp BP Pulse Ox 98.0 F 82 18 135/68 H 98 10/21/16 07:47 10/21/16 07:47 10/21/16 07:47 10/21/16 07:47 10/21/16 07:47 Intake & Output 10/20/16 10/21/16 10/22/16 06:59 06:59 06:59 Intake Total 1200 335 Output Total 375 175 Balance 825 160 Weight 88.7 kg 87.4 kg Results Laboratory Results: 10/18/16 06:26 10/18/16 06:26 10/16/16 09:25 Clean Catch Midstream Urine Culture - Final Proteus Mirabilis Enterococcus Faecalis(Group D) 10/15/16 10/15/16 10/15/16 16:37 16:37 22:20 Creatine Kinase 46 49 CK-MB (CK-2) 0.82 Troponin I < 0.012 NT-Pro-B Natriuret Pep 10/15/16 10/16/16 10/16/16 22:20 04:45 04:45 Creatine Kinase 52 CK-MB (CK-2) Troponin I 0.013 0.016 NT-Pro-B Natriuret Pep [id number] H Impressions: Retrograde Pyelogram 10/15/16 00:00 IMPRESSION: Left double-J stent in good positioning Head CT 10/18/16 21:00 IMPRESSION: NORMAL BRAIN CT WITHOUT CONTRAST. Qualifiers PATEINT BEING DISCHARGED WITH ANY OF THE FOLLOWING DIAGNOSIS?: No Plan Discharge Plan: This is addendum to discharge summary patient's atenolol dose was 50 mg twice a day and patient's was also put on Cipro 500 mg twice a for 5 days and also start on eliquis 2.5 mg twice a day. Patient's negative fall precaution and also need a physical therapy daily
[2016-10-21] MEDS: ESCITALOPRAM OXALATE 10 MG TABLET PO SCH (09:30)
[2016-10-21] MEDS: PREGABALIN 50 MG CAPSULE PO SCH (09:31)
[2016-10-21] MEDS: ISOSORBIDE MONONITRATE 30 MG TAB.ER.24H PO SCH (09:31)
[2016-10-21] MEDS: CIPROFLOXACIN HCL 500 MG TABLET PO SCH (09:31)
[2016-10-21] MEDS: POTASSIUM CHLORIDE 10 MEQ TABLET.SA PO SCH (09:31)
[2016-10-21] MEDS: SITAGLIPTIN PHOSPHATE 50 MG TABLET PO SCH (09:32)
[2016-10-21] MEDS: ATENOLOL 50 MG TABLET PO SCH (09:32)
[2016-10-21] MEDS: FUROSEMIDE 40 MG TABLET PO SCH (09:32)
[2016-10-21] MEDS: NYSTATIN TOPICAL POWDER 15 GM TP SCH (09:35)
[2016-10-21] MEDS: APIXABAN 2.5 MG TABLET PO SCH (09:35)
[2016-10-21] MEDS: DOCUSATE SODIUM 100 MG CAPSULE PO SCH (09:36)
[2016-10-21] MEDS: ZINC OXIDE 20% OINTMENT 28.35 GM TP SCH (09:36)
[2016-10-21 16:48] VITALS: BP 122/56
== END 2016-10-21 16:30 | DRG 988 ==
LOC: OROUT 10:49 → 3S 17:07
PROVIDERS: ADMIT Family Medicine; ATTEND Family Medicine
PROC: 0T774DZ Dilation of Left Ureter with Intraluminal Device, Percutaneous Endoscopic Approach (ICD-10-PCS; 2016-10-15)
PROC: BT1F1ZZ Fluoroscopy of Left Kidney, Ureter and Bladder using Low Osmolar Contrast (ICD-10-PCS; 2016-10-15)
PROC: 0TP94DZ Removal of Intraluminal Device from Ureter, Percutaneous Endoscopic Approach (ICD-10-PCS; principal; 2016-10-15 13:00)
DX: I48.0 Paroxysmal atrial fibrillation (principal); N39.0 Urinary tract infection, site not specified; N13.30 Unspecified hydronephrosis; I13.0 Hypertensive heart and chronic kidney disease with heart failure and stage 1 through stage 4 chronic kidney disease, or unspecified chronic kidney disease; N17.9 Acute kidney failure, unspecified; D50.9 Iron deficiency anemia, unspecified; E11.42 Type 2 diabetes mellitus with diabetic polyneuropathy; E78.5 Hyperlipidemia, unspecified; N13.5 Crossing vessel and stricture of ureter without hydronephrosis; E11.22 Type 2 diabetes mellitus with diabetic chronic kidney disease; I50.9 Heart failure, unspecified; N18.3 Chronic kidney disease, stage 3 (moderate); M54.5 Low back pain; E66.01 Morbid (severe) obesity due to excess calories; B96.4 Proteus (mirabilis) (morganii) as the cause of diseases classified elsewhere; B95.2 Enterococcus as the cause of diseases classified elsewhere; J45.909 Unspecified asthma, uncomplicated; M19.90 Unspecified osteoarthritis, unspecified site; Z74.01 Bed confinement status; Z95.5 Presence of coronary angioplasty implant and graft; Z79.02 Long term (current) use of antithrombotics/antiplatelets; Z93.3 Colostomy status; Z68.37 Body mass index [BMI] 37.0-37.9, adult; Z88.0 Allergy status to penicillin; Z92.21 Personal history of antineoplastic chemotherapy; Z88.2 Allergy status to sulfonamides; Z85.048 Personal history of other malignant neoplasm of rectum, rectosigmoid junction, and anus; Z90.710 Acquired absence of both cervix and uterus; Z90.49 Acquired absence of other specified parts of digestive tract; Z91.041 Radiographic dye allergy status; Z88.8 Allergy status to other drugs, medicaments and biological substances
CPT/HCPCS: 00910; 36415; 70450; 74420; 80048; 80076; 82550; 82553; 82962; 83735; 83880; 84439; 84443; 84481; 84484; 85025; 85610; 87086; 87088; 87186; 93005; 93010; C1758; C1769; C2625; G8978-GP; G8979-GP; J1580; J1650; J1815; J2250; J2405; J2704; J3010; J3490; Q9967; S0028

== ENCOUNTER 2016-11-20 11:10 | Emergency (ER) | payer MEDICARE, BC ==
[2016-11-20 12:26] LABS: ABSOLUTE BASOPHILS # (AUTO) 0.1 10^3/uL (0.0-0.2); ABSOLUTE EOSINOPHILS # (AUTO) 0.3 10^3/uL (0.0-0.6); ABSOLUTE LYMPHOCYTES (AUTO) 1.3 10^3/uL (0.5-4.7); ABSOLUTE MONOCYTES (AUTO) 0.6 10^3/uL (0.1-1.4); ABSOLUTE NEUT (AUTO) 4.6 10^3/uL (1.7-8.2); EOSINOPHILS % (AUTO) 4.4 % (0-6); HEMATOCRIT 28.8 % (36.0-47.0); HEMOGLOBIN 9.8 g/dL (12.0-15.5); HGB HCT DIFFERENCE 0.6; LYMPHOCYTES % (AUTO) 19.2 % (13-45); MEAN CORPUSCULAR HEMOGLOBIN 31.4 pg (27.0-33.4); MEAN CORPUSCULAR HGB CONC 34.1 g/dL (32.0-36.0); MEAN CORPUSCULAR VOLUME 92 fl (80-97); MONOCYTES % (AUTO) 9.1 % (3-13); RED BLOOD COUNT 3.13 10^6/uL (3.72-5.28); RED CELL DISTRIBUTION WIDTH 14.5 % (11.5-14.0); SEGMENTED NEUTROPHILS % (AUTO) 66.3 % (42-78); WHITE BLOOD COUNT 6.9 10^3/uL (4.0-10.5)
[2016-11-20 12:48] LABS: AMORPHOUS SEDIMENT,URINE TRACE /HPF; APPEARANCE,URINE CLOUDY; BILIRUBIN,URINE NEGATIVE (NEGATIVE); GLUCOSE, URINE NEGATIVE (NEGATIVE); KETONES,URINE NEGATIVE (NEGATIVE); LEUKOCYTE ESTERASE,URINE LARGE (NEGATIVE); NITRITE,URINE NEGATIVE (NEGATIVE); PROTEIN,URINE 30 mg/dL (NEGATIVE); URINE SPECIFIC GRAVITY 1.006; UROBILINOGEN,URINE NEGATIVE mg/dL (<2.0)
[2016-11-20 12:50] LABS: ALANINE AMINOTRANSFERASE 21 U/L (9-52); ALBUMIN 2.7 g/dL (3.5-5.0); ALKALINE PHOSPHATASE 92 U/L (38-126); ANION GAP 7 (5-19); ASPARTATE AMINO TRANSFERASE 26 U/L (14-36); BILIRUBIN,TOTAL 0.5 mg/dL (0.2-1.3); BLOOD UREA NITROGEN 20 mg/dL (7-20); CALCIUM 8.2 mg/dL (8.4-10.2); CARBON DIOXIDE 29 mmol/L (22-30); CHLORIDE 101 mmol/L (98-107); CREATININE RESULT 1.23 mg/dL (0.52-1.25); GLUCOSE 103 mg/dL (75-110); SODIUM 136.6 mmol/L (137-145); TOTAL PROTEIN 6.3 g/dL (6.3-8.2)
--- NOTE | 2016-11-20 15:00 | ER Document Report ---
ED General - General Chief Complaint: Pain With Urination Stated Complaint: PAINFUL URINATION Time seen by provider: 12:20 Mode of Arrival: Stretcher Information source: Patient, Relative Notes: 86-year-old female with complaint of dysuria urgency frequency and small volumes which has been present for about 3 weeks. Patient and daughter reports that she chronically has urinary tract infections and problems with instruction for which she has ureteral stents placed in changed out about every [address] Dennis. Report last stent was replaced in October is due again for follow- up in December. They report that she about 2 weeks ago was found of UTI placed on Cipro but her urinary symptoms have not improved on that as they historically have done and the patient denies fever, chills, nausea, vomiting, chest pain, abdominal pain, or back pain. She localizes her discomfort to her vagina and ulnar region. She denies vaginal bleeding or discharge. She is status post rectal cancer with resection colostomy and complete hysterectomy. Physical Exam: General: Alert, appears well. HEENT: Normocephalic. Atraumatic. PERRLA. Extraocular movements intact. Oropharynx clear. Neck: Supple. Non-tender. Respiratory: No respiratory distress. Clear and equal breath sounds bilaterally. Cardiovascular: Regular rate and rhythm. Abdominal: Colostomy site appears healthy no signs or symptoms of infection Soft , non-tender. No distension. Normal Bowel Sounds. atrophic external female genitalia. No discharge or bleeding is present. No lesions are noted externally. Speculum examination no lesions or masses in the vaginal canal. Back: Non-tender. No deformity or step off. Extremities: Moves all four extremities. Upper extremities: Normal inspection. Non-tender. Normal color. Normal ROM. Normal temperature. Lower extremities: Normal inspection. Non-tender. No edema. Normal color. Normal ROM. Normal temperature. Neurological: Speech clear mentation normal answers questions appropriately Psychological: Normal affect. Normal Mood. Skin: Warm. Dry. Normal color. TRAVEL OUTSIDE OF THE [place] IN LAST 30 DAYS: No - Related Data Allergies/Adverse Reactions: dipyridamole [From Persantine] Allergy (Severe, Verified 02/21/16 11:58) ? nalbuphine HCl [From Nubain] Allergy (Severe, Verified 12/16/15 11:41) shock Penicillins Allergy (Severe, Verified 02/21/16 11:58) rash Sulfa (Sulfonamide Antibiotics) Allergy (Unknown, Verified 12/16/15 11:41) ? aspirin [Aspirin] Adverse Reaction (Mild, Verified 12/16/15 11:41) stomach upset cardiolite Allergy (Severe, Uncoded 12/16/15 11:41) Hives IVP dye Allergy (Intermediate, Uncoded 12/16/15 11:41) Hives Past Medical History - Social History Smoking Status: Never Smoker Family History: Reviewed & Not Pertinent Patient has suicidal ideation: No Patient has homicidal ideation: No - Past Medical History Cardiac Medical History: Reports: Hx Congestive Heart Failure, Hx Coronary Artery Disease, Hx Hypercholesterolemia, Hx Hypertension - many yrs Denies: Hx Heart Attack Pulmonary Medical History: Reports: Hx Asthma - sob with exertion Denies: Hx Bronchitis, Hx COPD, Hx Pneumonia, Hx Tuberculosis Neurological Medical History: Denies: Hx Cerebrovascular Accident, Hx Seizures Endocrine Medical History: Reports: Hx Diabetes Mellitus Type 2 - no meds Renal/ Medical History: Denies: Hx Peritoneal Dialysis GI Medical History: Reports: Hx Gastroesophageal Reflux Disease Musculoskeltal Medical History: 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 Denies: Hx Hysterectomy, Hx Pacemaker - Immunizations Hx Diphtheria, Pertussis, Tetanus Vaccination: Yes Review of Systems - Review of Systems Constitutional: denies: Chills, Fever EENT: denies: Ear pain, Throat pain Cardiovascular: denies: Chest pain, Syncope Respiratory: denies: Cough, Short of breath Gastrointestinal: denies: Abdominal pain, Diarrhea, Nausea, Vomiting Genitourinary: Burning, Dysuria, Frequency, Urgency Female Genitourinary: denies: Vaginal discharge, Vaginal bleeding Musculoskeletal: denies: Back pain, Muscle pain Skin: denies: Rash Hematologic/Lymphatic: denies: Swollen glands Neurological/Psychological: denies: Weakness, Numbness Physical Exam - Vital signs Vitals: Temp Pulse Resp BP Pulse Ox 98.5 F 64 20 112/42 L 96 11/20/16 11:17 11/20/16 11:17 11/20/16 11:17 11/20/16 11:17 11/20/16 11:17 Course - Vital Signs Vital signs: Temp Pulse Resp BP Pulse Ox 98.5 F 64 20 112/42 L 96 11/20/16 11:17 11/20/16 11:17 11/20/16 11:17 11/20/16 11:17 11/20/16 11:17 - Laboratory Result Diagrams: 11/20/16 12:18 11/20/16 12:18 Laboratory results interpreted by me: 11/20/16 11/20/16 11/20/16 12:18 12:18 12:25 RBC 3.13 L Hgb 9.8 L Hct 28.8 L RDW 14.5 H Sodium 136.6 L Est GFR ( Amer) 50 L Est GFR (Non-Af Amer) 42 L Calcium 8.2 L Albumin 2.7 L Urine Protein 30 H Urine Blood LARGE H Ur Leukocyte Esterase LARGE H - Diagnostic Test Radiology reviewed: Reports reviewed Discharge - Discharge Clinical Impression: Urinary tract infection Qualifiers: Urinary tract infection type: site unspecified Hematuria presence: without hematuria Qualified Code(s): N39.0 - Urinary tract infection, site not specified Condition: Stable Disposition: HOME-SNF (ED ONLY) Instructions: Urinary Tract Infection ([facility]), Nitrofurantoin ([facility]), Urinary Anesthetic Agent ([facility]) Prescriptions: Nitrofurantoin Macrocrystal [Macrodantin] 100 mg PO BID #20 capsule Nitrofurantoin Macrocrystal [Macrodantin] 100 mg PO BID #20 capsule Phenazopyridine HCl [Pyridium 100 Mg Tablet] 100 mg PO TID #20 tablet Referrals: BONITA LYNN MD [Primary Care Provider] - Follow up as needed CAIN DENNIS MD [ACTIVE STAFF] - Follow up in 3-5 days
[2016-11-20 17:24] VITALS: BP 150/76
== END 2016-11-20 17:38 ==
LOC: ER 11:10
DX: N39.0 Urinary tract infection, site not specified (principal); I50.9 Heart failure, unspecified; I11.0 Hypertensive heart disease with heart failure; E11.9 Type 2 diabetes mellitus without complications; Z90.49 Acquired absence of other specified parts of digestive tract; Z88.0 Allergy status to penicillin; Z88.2 Allergy status to sulfonamides
CPT/HCPCS: 36415; 74176; 80053; 81001; 85025; 87086; 87088; 87186; 87210; 99284

== ENCOUNTER 2016-11-23 18:59 | Inpatient (IN) | payer MEDICARE, BC ==
--- NOTE | 2016-11-23 19:57 | ER Document Report ---
ED General - General Chief Complaint: Abnormal Lab Results Stated Complaint: WEAKNESS Time seen by provider: 19:55 Notes: Patient is an 86-year-old female that comes emergency department for chief complaint of painful urination, patient was seen on 11/20/2016 and placed on Macrobid for painful urination, patient had a urine culture resulting showing resistance to Macrobid, patient was contacted and return to the ED by EMS as a result. Patient denies fever, chills, nausea, vomiting, abdominal pain, flank pain. Patient has a history of ureteral stents which she gets replaced every 3 months, she is due next month for her next replacement, she was following with Dr. Dennis, she states she has her first appointment with a new urologist tomorrow but she cannot remember their name. Patient also has a history of rectal cancer, colon resection with colostomy bag, hysterectomy. TRAVEL OUTSIDE OF THE [place] IN LAST 30 DAYS: No - Related Data Allergies/Adverse Reactions: aspirin Allergy (Verified 11/24/16 02:04) dipyridamole [From Persantine] Allergy (Verified 11/24/16 02:04) nalbuphine [From Nubain] Allergy (Verified 11/24/16 02:04) Penicillins Allergy (Verified 11/24/16 02:04) Sulfa (Sulfonamide Antibiotics) Allergy (Verified 11/24/16 02:04) IVC dye Allergy (Uncoded 11/24/16 02:04) Home Medications: Current Home Medications Acetaminophen [Tylenol] 2 tab PO BID 11/24/16 [History] Apixaban [Eliquis 2.5 mg Tablet] 1 tab PO BID 11/24/16 [History] Atenolol [Tenormin 50 mg Tablet] 1 tab PO Q12 11/24/16 [History] Cholecalciferol (Vitamin D3) [Vitamin D3 1000 Unit Tablet] 1 tab PO DAILY [History] Doxycycline Hyclate [Vibramycin] 1 tab PO BID 11/24/16 [History] Furosemide [Lasix 40 mg Tablet] 1 tab PO QAM 11/24/16 [History] Hum Insulin NPH/Reg Insulin Hm [Novolin 70-30 100 Unit/Ml Vial] 100 unit SQ MEALS 11/24/16 [History] Ondansetron [Zofran Odt 4 mg Tablet] 1 tab PO Q4H PRN 11/24/16 [History] Oxycodone HCl 1 tab PO Q12H PRN 11/24/16 [History] Pregabalin [Lyrica 50 mg Capsule] 1 tab PO Q12 11/24/16 [History] Past Medical History - General Information source: Patient, Emergency Med Personnel - Social History Smoking Status: Never Smoker Frequency of alcohol use: None Drug Abuse: None Lives with: [facility] Family History: Reviewed & Not Pertinent - Past Medical History Cardiac Medical History: Reports: Hx Congestive Heart Failure, Hx Coronary Artery Disease, Hx Hypercholesterolemia, Hx Hypertension - many yrs Denies: Hx Heart Attack Pulmonary Medical History: Reports: Hx Asthma - sob with exertion Denies: Hx Bronchitis, Hx COPD, Hx Pneumonia, Hx Tuberculosis Neurological Medical History: Denies: Hx Cerebrovascular Accident, Hx Seizures Endocrine Medical History: Reports: Hx Diabetes Mellitus Type 2 - no meds Renal/ Medical History: Denies: Hx Peritoneal Dialysis GI Medical History: Reports: Hx Gastroesophageal Reflux Disease Musculoskeltal Medical History: 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 Denies: Hx Hysterectomy, Hx Pacemaker - Immunizations Hx Diphtheria, Pertussis, Tetanus Vaccination: Yes Review of Systems - Review of Systems Constitutional: No symptoms reported EENT: No symptoms reported Cardiovascular: No symptoms reported Respiratory: No symptoms reported Gastrointestinal: No symptoms reported Genitourinary: See HPI Female Genitourinary: No symptoms reported Musculoskeletal: No symptoms reported Skin: No symptoms reported Hematologic/Lymphatic: No symptoms reported Neurological/Psychological: No symptoms reported Physical Exam - Vital signs Vitals: Temp Pulse Resp BP Pulse Ox 97.8 F 72 16 111/43 L 97 11/23/16 19:25 11/23/16 19:25 11/23/16 19:25 11/23/16 19:25 11/23/16 19:25 Interpretation: Normal - General General appearance: Appears well, Alert In distress: None - HEENT Head: Normocephalic, Atraumatic Eyes: Normal Pupils: PERRL - Respiratory Respiratory status: No respiratory distress Chest status: Nontender Breath sounds: Normal Chest palpation: Normal - Cardiovascular Rhythm: Regular Heart sounds: Normal auscultation Murmur: No - Abdominal Inspection: Other - Colostomy bag in place, has normal-appearing stool in the bag Distension: No distension Bowel sounds: Normal Tenderness: Tender - Mild lower abdominal tenderness, no guarding, soft abdomen otherwise - Back Back: Normal, Nontender - Extremities General upper extremity: Normal inspection, Nontender, Normal color, Normal ROM , Normal temperature General lower extremity: Normal inspection, Nontender, Normal color, Normal ROM , Normal temperature, Normal weight bearing. No: Sancho's sign - Neurological Neuro grossly intact: Yes Cognition: Normal Orientation: AAOx4 [place] Coma Scale Eye Opening: Spontaneous [place] Coma Scale Verbal: Oriented [place] Coma Scale Motor: Obeys Commands [place] Coma Scale Total: 15 Speech: Normal Motor strength normal: LUE, RUE, LLE, RLE Sensory: Normal - Psychological Associated symptoms: Normal affect, Normal mood - Skin Skin Temperature: Warm Skin Moisture: Dry Skin Color: Normal Course - Re-evaluation Re-evalutation: No fever, significant hypotension, tachycardia, and patient is well appearing on examination. No significant abdominal tenderness. Urinalysis again shows infection, catheter urine was ordered, culture placed. Concern because of extensive resistance with Klebsiella ESBL, patient is allergic to penicillin, patient will be started on aztreonam for now. Concern also because of indwelling ureteral stents. Patient may need continued antibiotic therapy with IV medication, possible PICC line insertion. Discussed with Dr. Howell. Patient asking for some pain medication to help her relax because of the mid to lower abdominal pain. Discussed with Dr. Leonardo, electronics technology department chair for Dr. Ortiz, patient will be admitted to the hospital. - Vital Signs Vital signs: Temp Pulse Resp BP Pulse Ox 98.1 F 65 19 116/39 L 97 11/24/16 02:10 11/24/16 03:30 11/24/16 02:10 11/24/16 02:10 11/24/16 02:10 - Laboratory Result Diagrams: 11/23/16 22:00 11/23/16 22:00 Laboratory results interpreted by me: 11/23/16 11/23/16 11/23/16 22:00 22:00 23:25 RBC 3.43 L Hgb 10.8 L Hct 31.6 L RDW 14.5 H Sodium 136.8 L Creatinine 1.51 H Est GFR ( Amer) 40 L Est GFR (Non-Af Amer) 33 L Urine Protein 30 H Urine Blood MODERATE H Urine Nitrite POSITIVE H Ur Leukocyte Esterase LARGE H Discharge - Discharge Clinical Impression: ESBL (extended spectrum beta-lactamase) producing bacteria infection, Dysuria Urinary tract infection Qualifiers: Urinary tract infection type: site unspecified Hematuria presence: without hematuria Qualified Code(s): N39.0 - Urinary tract infection, site not specified Condition: Stable Disposition: ADMITTED INPATIENT Admitting Provider: Malissa Ortiz Unit Admitted: Telemetry
[2016-11-23] MEDS ORDERED: NORMAL SALINE 1000 ML 500 ML IV ONE (22:15)
[2016-11-23] MEDS ORDERED: ONDANSETRON HCL INJ/PF 4 MG/2 ML SDV IV ONE (22:15)
[2016-11-23] MEDS ORDERED: MORPHINE SULFATE 10 MG/ML INJ IV ONE (22:15)
[2016-11-23 22:28] LABS: ABSOLUTE BASOPHILS # (AUTO) 0.1 10^3/uL (0.0-0.2); ABSOLUTE EOSINOPHILS # (AUTO) 0.4 10^3/uL (0.0-0.6); ABSOLUTE LYMPHOCYTES (AUTO) 1.8 10^3/uL (0.5-4.7); ABSOLUTE MONOCYTES (AUTO) 0.5 10^3/uL (0.1-1.4); ABSOLUTE NEUT (AUTO) 5.1 10^3/uL (1.7-8.2); BASOPHILS % (AUTO) 0.7 % (0-2); EOSINOPHILS % (AUTO) 5.7 % (0-6); HEMATOCRIT 31.6 % (36.0-47.0); HEMOGLOBIN 10.8 g/dL (12.0-15.5); HGB HCT DIFFERENCE 0.8; LYMPHOCYTES % (AUTO) 22.4 % (13-45); MEAN CORPUSCULAR HEMOGLOBIN 31.6 pg (27.0-33.4); MEAN CORPUSCULAR HGB CONC 34.2 g/dL (32.0-36.0); MEAN CORPUSCULAR VOLUME 92 fl (80-97); MONOCYTES % (AUTO) 6.7 % (3-13); RED BLOOD COUNT 3.43 10^6/uL (3.72-5.28); RED CELL DISTRIBUTION WIDTH 14.5 % (11.5-14.0); SEGMENTED NEUTROPHILS % (AUTO) 64.5 % (42-78); WHITE BLOOD COUNT 7.9 10^3/uL (4.0-10.5)
[2016-11-23] MEDS ORDERED: AZTREONAM INJ 1 GM VIAL IV ONE (22:43)
[2016-11-23 22:44] LABS: ANION GAP 8 (5-19); BLOOD UREA NITROGEN 19 mg/dL (7-20); CALCIUM 8.7 mg/dL (8.4-10.2); CARBON DIOXIDE 25 mmol/L (22-30); CHLORIDE 104 mmol/L (98-107); CREATININE RESULT 1.51 mg/dL (0.52-1.25); GLUCOSE 109 mg/dL (75-110); POTASSIUM 4.7 mmol/L (3.6-5.0); SODIUM 136.8 mmol/L (137-145)
[2016-11-23 23:54] LABS: BILIRUBIN,URINE NEGATIVE (NEGATIVE); GLUCOSE, URINE NEGATIVE (NEGATIVE); KETONES,URINE NEGATIVE (NEGATIVE); LEUKOCYTE ESTERASE,URINE LARGE (NEGATIVE); NITRITE,URINE POSITIVE (NEGATIVE); PROTEIN,URINE 30 mg/dL (NEGATIVE); UROBILINOGEN,URINE NEGATIVE mg/dL (<2.0)
[2016-11-23 23:57] LABS: APPEARANCE,URINE HAZY; URINE SPECIFIC GRAVITY 1.016
[2016-11-24] MEDS ORDERED: IPRATROPIUM/ALBUTEROL 0.5-2.5 MG/3 ML AMPUL NEB PRN (08:00)
[2016-11-24] MEDS ORDERED: ACETAMINOPHEN 325 MG TABLET PO PRN (08:00)
[2016-11-24] MEDS ORDERED: GLUCAGON,HUMAN RECOMB 1 MG INJ IM PRN (08:16)
[2016-11-24] MEDS ORDERED: DEXTROSE 40% GEL 15 GM TUBE PO PRN (08:16)
[2016-11-24] MEDS ORDERED: DEXTROSE 50%-WATER SYRINGE 12.5 GM/25 ML DOSE IV PRN (08:16)
[2016-11-24] MEDS ORDERED: DEXTROSE 40% GEL 15 GM TUBE X 2 PO PRN (08:16)
[2016-11-24] MEDS ORDERED: DEXTROSE 50%-WATER SYRINGE 25 GM/50 ML DOSE IV PRN (08:16)
[2016-11-24] MEDS ORDERED: OXYCODONE HCL IR 5 MG TABLET PO PRN (08:21)
[2016-11-24] MEDS ORDERED: APIXABAN 2.5 MG TABLET PO SCH (10:00)
[2016-11-24] MEDS ORDERED: DOXYCYCLINE HYCLATE PO SCH (10:00)
[2016-11-24] MEDS ORDERED: OMEPRAZOLE PO SCH (10:00)
[2016-11-24] MEDS ORDERED: ACETAMINOPHEN 325 MG TABLET PO SCH (10:00)
[2016-11-24] MEDS ORDERED: SAXAGLIPTIN HCL PO SCH (10:00)
[2016-11-24] MEDS ORDERED: ATENOLOL 50 MG TABLET PO SCH (10:00)
[2016-11-24] MEDS ORDERED: POTASSIUM CHLORIDE PO SCH (10:00)
--- NOTE | 2016-11-24 10:39 | PDOC H&P ---
History of Present Illness Admission Date/PCP: 11/24/16 08:00 BONITA LYNN MD Patient complains of: Painful urination History of Present Illness: MICHELLE HAYDEN is a 86 year old Swati is a 86-year-old for with significant history of the kidneys to and also history of ureter stent and a chronic urinary tract infection came to the emergency department because because of the complaining of urinary urgency in the lower lower abdominal pain and was in the ER couple of days and patient have a CT scan was versus the presence of ureteral stent placed in need to follow urology for. Patient see Dr. Dennis but now currently going to follow with a new- urologt. Patient also a history of the rectal cancer status post surgery and chemo. 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 and currently [facility] a [facility] Past Medical History Cardiac Medical History: Reports: Congestive Heart Failure, Coronary Artery Disease, Hyperlipidema, Hypertension - many yrs Denies: Myocardial Infarction Pulmonary Medical History: Reports: Asthma - sob with exertion Denies: Bronchitis, Chronic Obstructive Pulmonary Disease (COPD), Pneumonia, Tuberculosis Neurological Medical History: Denies: Seizures Endocrine Medical History: Reports: Diabetes Mellitus Type 2 - no meds GI Medical History: Reports: Gastroesophageal Reflux Disease Musculoskeltal Medical History: Reports: Arthritis - legs Psychiatric Medical History: Reports: Depression Hematology: Reports: Anemia - in past Past Surgical History Past Surgical History: Reports: Appendectomy, Cardiac Catheterization - x2, Cholecystectomy, Colostomy, Other Denies: Hysterectomy, Pacemaker Social History Lives with: [facility] Smoking Status: Never Smoker Frequency of Alcohol Use: None Hx Recreational Drug Use: No Hx Prescription Drug Abuse: No - Advance Directive Resuscitation Status: Full Code Family History Family History: Reviewed & Not Pertinent Parental Family History Reviewed: Yes Children Family History Reviewed: Yes Sibling(s) Family History Reviewed.: Yes Medication/Allergy Home Medications: Atorvastatin Calcium [Lipitor 40 mg Tablet] 1 tab PO QHS 10/13/12 Omeprazole [Prilosec 20 mg Capsule] 1 tab PO BID 10/13/12 Saxagliptin HCl [Onglyza] 1 tab PO DAILY 10/13/12 Escitalopram Oxalate [Lexapro 10 mg Tablet] 1 tab PO QAM 04/23/15 Escitalopram Oxalate [Lexapro] 1 tab PO QPM 04/23/15 Glimepiride [Amaryl] 1 tab PO QPM 04/23/15 Isosorbide Mononitrate [Imdur 60 mg Tablet.er] 1 tab PO DAILY 12/16/15 Potassium Chloride 1 cap PO DAILY 06/12/16 Phenazopyridine HCl [Pyridium 100 Mg Tablet] 100 mg PO TID #20 tablet 11/20/16 Acetaminophen [Tylenol] 2 tab PO BID 11/24/16 Apixaban [Eliquis 2.5 mg Tablet] 1 tab PO BID 11/24/16 Atenolol [Tenormin 50 mg Tablet] 1 tab PO Q12 11/24/16 Cholecalciferol (Vitamin D3) [Vitamin D3 1000 Unit Tablet] 1 tab PO DAILY Doxycycline Hyclate [Vibramycin] 1 tab PO BID 11/24/16 Furosemide [Lasix 40 mg Tablet] 1 tab PO QAM 11/24/16 Hum Insulin NPH/Reg Insulin Hm [Novolin 70-30 100 Unit/Ml Vial] 100 unit SQ MEALS 11/24/16 Ondansetron [Zofran Odt 4 mg Tablet] 1 tab PO Q4H PRN 11/24/16 Oxycodone HCl 1 tab PO Q12H PRN 11/24/16 Pregabalin [Lyrica 50 mg Capsule] 1 tab PO Q12 11/24/16 Allergies/Adverse Reactions: aspirin Allergy (Verified 11/24/16 02:04) dipyridamole [From Persantine] Allergy (Verified 11/24/16 02:04) nalbuphine [From Nubain] Allergy (Verified 11/24/16 02:04) Penicillins Allergy (Verified 11/24/16 02:04) Sulfa (Sulfonamide Antibiotics) Allergy (Verified 11/24/16 02:04) IVC dye Allergy (Uncoded 11/24/16 02:04) Review of Systems Constitutional: PRESENT: fatigue Eyes: ABSENT: as per HPI, visual disturbances, other Ears: ABSENT: as per HPI, hearing changes, other Nose, Mouth, and Throat: ABSENT: as per HPI, headache(s), mouth pain, sore throat, vertigo, other Breasts: ABSENT: as per HPI, other Cardiovascular: ABSENT: as per HPI, chest pain, dyspnea on exertion, edema, orthropnea, palpitations, other Respiratory: ABSENT: as per HPI, cough, dyspnea, hemoptysis, sputum, other Gastrointestinal: PRESENT: abdominal pain. ABSENT: as per HPI, bloating, coffee ground emesis, constipation, diarrhea, dysphagia, heartburn, hematemesis , hematochezia, melena, nausea, vomiting, other Genitourinary: PRESENT: difficulty urinating, dysuria Integumentary: ABSENT: as per HPI, diaphoresis, erythema, lesions, pruritus, rash, wounds, other Neurological: PRESENT: weakness Psychiatric: ABSENT: as per HPI, anxiety, depression, hallucinations, homidical ideation, suicidal ideation, other Physical Exam Vital Signs: Temp Pulse Resp BP Pulse Ox 98.1 F 64 19 116/39 L 97 11/24/16 02:10 11/24/16 07:38 11/24/16 02:10 11/24/16 02:10 11/24/16 02:10 General appearance: PRESENT: no acute distress Head exam: PRESENT: normocephalic Eye exam: PRESENT: PERRLA Mouth exam: PRESENT: neck supple Neck exam: PRESENT: full ROM Respiratory exam: PRESENT: clear to auscultation wei Cardiovascular exam: PRESENT: +S1, +S2 GI/Abdominal exam: PRESENT: normal bowel sounds, soft. ABSENT: tenderness Extremities exam: ABSENT: pedal edema Neurological exam: PRESENT: alert, awake, oriented to person, oriented to place , oriented to time, oriented to situation Psychiatric exam: PRESENT: depressed Skin exam: PRESENT: dry Assessment & Plan - Diagnosis (1) ESBL (extended spectrum beta-lactamase) producing bacteria infection Is this a current diagnosis for this admission?: YesPlan: Status post colostomy start the patient on IV antibiotic and wait for the culture and sensitive (2) Urinary tract infection Qualifiers: Urinary tract infection type: site unspecified Hematuria presence: without hematuria Qualified Code(s): N39.0 - Urinary tract infection, site not specified Is this a current diagnosis for this admission?: YesPlan: A consult to urology for the further evaluation of the stent and the recurrent infections (3) Back pain Qualifiers: Back pain location: low back pain Is this a current diagnosis for this admission?: Yes (4) Diabetes Qualifiers: Diabetes mellitus type: type 2 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 Is this a current diagnosis for this admission?: YesPlan: Continues the current medication the sliding scale (5) Hyperlipemia Qualifiers: Hyperlipidemia type: unspecified Qualified Code(s): E78.5 - Hyperlipidemia, unspecified Is this a current diagnosis for this admission?: YesPlan: Stable (6) Neuropathy Is this a current diagnosis for this admission?: YesPlan: Continues to Lyrica (8) Anemia Qualifiers: Iron deficiency anemia type: unspecified iron deficiency Is this a current diagnosis for this admission?: YesPlan: Stable (9) Atrial fibrillation Qualifiers: Atrial fibrillation type: paroxysmal Qualified Code(s): I48.0 - Paroxysmal atrial fibrillation Is this a current diagnosis for this admission?: YesPlan: On Eliquis (10) Chronic kidney disease (CKD) stage G1/A3, glomerular filtration rate (GFR) equal to or greater than 90 mL/min/1.73 square meter and albuminuria creatinine ratio greater than 300 mg/g Is this a current diagnosis for this admission?: YesPlan: Stable - Time Time Spent: 30 to 50 Minutes Medications reviewed and adjusted accordingly: Yes Anticipated discharge: SNF - Inpatient Certification Medical Necessity: Significant Comorbidiites Make Outpatient Treatment Too Risky , Need Close Monitoring Due to Risk of Patient Decompensation, Need for IV Antibiotics 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
[2016-11-24] MEDS: PHENAZOPYRIDINE HCL 100 MG TABLET PO SCH ×3 (10:44→17:40)
[2016-11-24] MEDS: ONDANSETRON 4 MG TAB.RAPDIS PO PRN ×4 (10:44→21:00)
[2016-11-24] MEDS: APIXABAN 2.5 MG TABLET PO SCH ×2 (10:44→21:06)
[2016-11-24] MEDS: DOXYCYCLINE HYCLATE 100 MG TABLET PO SCH ×2 (10:44→17:40)
[2016-11-24] MEDS: ISOSORBIDE MONONITRATE 60 MG TAB.ER.24H PO SCH (10:46)
[2016-11-24] MEDS: PREGABALIN 50 MG CAPSULE PO SCH ×2 (10:46→21:01)
[2016-11-24] MEDS: CHOLECALCIFEROL (D3) 1,000 UNIT TABLET PO SCH (10:46)
[2016-11-24] MEDS: POTASSIUM CHLORIDE 10 MEQ TABLET.SA PO SCH (10:48)
[2016-11-24] MEDS: ATENOLOL 50 MG TABLET PO SCH ×2 (10:49→21:06)
[2016-11-24] MEDS: LANSOPRAZOLE 15 MG TAB.RAP.DR PO SCH ×2 (10:50→17:38)
[2016-11-24] MEDS: DOCUSATE SODIUM 100 MG CAPSULE PO SCH ×2 (10:59→17:47)
[2016-11-24] MEDS: AZTREONAM 1.5 GM in DEXTROSE 5%-WATER 100 ML IV SCH ×2 (14:38→21:06)
[2016-11-24] MEDS: HUM INSULIN NPH/REG INSULIN HM 100 UNIT/1 ML 3 ML SUBCUT SCH ×2 (14:38→19:02)
[2016-11-24] MEDS: GLIMEPIRIDE 1 MG TABLET PO SCH (17:35)
[2016-11-24] MEDS: OXYCODONE HCL IR 5 MG TABLET PO PRN (17:36)
[2016-11-24] MEDS ORDERED: ESCITALOPRAM OXALATE PO SCH (18:00)
[2016-11-24] MEDS ORDERED: GLIMEPIRIDE PO SCH (18:00)
[2016-11-24] MEDS: ESCITALOPRAM OXALATE 10 MG TABLET PO SCH (21:01)
[2016-11-24] MEDS: ATORVASTATIN CALCIUM 40 MG TABLET PO SCH (21:02)
[2016-11-24] MEDS ORDERED: ATORVASTATIN CALCIUM 40 MG TABLET PO SCH (22:00)
[2016-11-25] MEDS: ONDANSETRON 4 MG TAB.RAPDIS PO PRN ×6 (00:51→20:30)
[2016-11-25] MEDS: AZTREONAM 1.5 GM in DEXTROSE 5%-WATER 100 ML IV SCH (05:32)
[2016-11-25 05:41] LABS: ABSOLUTE BASOPHILS # (AUTO) 0.1 10^3/uL (0.0-0.2); ABSOLUTE EOSINOPHILS # (AUTO) 0.4 10^3/uL (0.0-0.6); ABSOLUTE LYMPHOCYTES (AUTO) 1.7 10^3/uL (0.5-4.7); ABSOLUTE MONOCYTES (AUTO) 0.6 10^3/uL (0.1-1.4); ABSOLUTE NEUT (AUTO) 4.2 10^3/uL (1.7-8.2); BASOPHILS % (AUTO) 0.9 % (0-2); EOSINOPHILS % (AUTO) 5.4 % (0-6); HEMATOCRIT 27.5 % (36.0-47.0); HEMOGLOBIN 9.2 g/dL (12.0-15.5); HGB HCT DIFFERENCE 0.1; MEAN CORPUSCULAR HEMOGLOBIN 31.2 pg (27.0-33.4); MEAN CORPUSCULAR HGB CONC 33.7 g/dL (32.0-36.0); MEAN CORPUSCULAR VOLUME 93 fl (80-97); MONOCYTES % (AUTO) 8.4 % (3-13); RED BLOOD COUNT 2.97 10^6/uL (3.72-5.28); RED CELL DISTRIBUTION WIDTH 14.6 % (11.5-14.0); SEGMENTED NEUTROPHILS % (AUTO) 60.3 % (42-78); WHITE BLOOD COUNT 6.9 10^3/uL (4.0-10.5)
[2016-11-25 06:10] LABS: BLOOD UREA NITROGEN 24 mg/dL (7-20); CALCIUM 8.1 mg/dL (8.4-10.2); CREATININE RESULT 1.19 mg/dL (0.52-1.25); GLUCOSE 94 mg/dL (75-110)
[2016-11-25 06:11] LABS: ANION GAP 7 (5-19); CARBON DIOXIDE 23 mmol/L (22-30); CHLORIDE 107 mmol/L (98-107); POTASSIUM 4.3 mmol/L (3.6-5.0); SODIUM 137.3 mmol/L (137-145)
[2016-11-25] MEDS ORDERED: ENOXAPARIN SODIUM INJ 30 MG/0.3 ML DISP.SYRIN SUBCUT SCH (08:00)
[2016-11-25] MEDS: FUROSEMIDE 40 MG TABLET PO SCH (08:27)
[2016-11-25] MEDS ORDERED: NYSTATIN TOPICAL POWDER 15 GM TP SCH (10:00)
[2016-11-25] MEDS: ESCITALOPRAM OXALATE 10 MG TABLET PO SCH ×2 (10:05→21:14)
[2016-11-25] MEDS: SITAGLIPTIN PHOSPHATE 50 MG TABLET PO SCH (10:06)
[2016-11-25] MEDS: LANSOPRAZOLE 15 MG TAB.RAP.DR PO SCH ×2 (10:06→17:59)
[2016-11-25] MEDS: CHOLECALCIFEROL (D3) 1,000 UNIT TABLET PO SCH (10:06)
[2016-11-25] MEDS: PREGABALIN 50 MG CAPSULE PO SCH ×2 (10:07→21:14)
[2016-11-25] MEDS: POTASSIUM CHLORIDE 10 MEQ TABLET.SA PO SCH (10:07)
[2016-11-25] MEDS: ISOSORBIDE MONONITRATE 60 MG TAB.ER.24H PO SCH (10:07)
[2016-11-25] MEDS: ERTAPENEM SODIUM 1 GM in NORMAL SALINE 50 ML IV SCH (10:08)
[2016-11-25] MEDS: DOCUSATE SODIUM 100 MG CAPSULE PO SCH ×2 (10:10→18:00)
[2016-11-25] MEDS: PHENAZOPYRIDINE HCL 100 MG TABLET PO SCH ×3 (10:13→18:00)
[2016-11-25] MEDS: APIXABAN 2.5 MG TABLET PO SCH ×2 (10:13→21:14)
[2016-11-25] MEDS: DOXYCYCLINE HYCLATE 100 MG TABLET PO SCH ×2 (10:14→18:00)
[2016-11-25] MEDS: INSULIN LISPRO 100 UNIT/ML 3 ML VIAL SUBCUT PRN ×2 (11:14→21:14)
--- NOTE | 2016-11-25 12:43 | PDOC PROGRESS REPORT ---
Subjective Progress Note for:: 11/25/16 Subjective:: Patient is here for the lab patient is doing faiDenied any abdominal pain no nausea no vomiting patient seen by the urologist and suggest no need to remove the stent patient urine cultures also ESBL which is sensitive to the entrapenam Physical Exam Vital Signs: Temp Pulse Resp BP Pulse Ox 98.0 F 67 16 118/36 L 98 11/25/16 05:22 11/25/16 08:00 11/25/16 08:00 11/25/16 05:22 11/25/16 08:00 Intake & Output 11/24/16 11/25/16 11/26/16 06:59 06:59 06:59 Intake Total 210 Output Total 500 Balance -290 Weight 83.2 kg General appearance: PRESENT: no acute distress Head exam: PRESENT: normocephalic Eye exam: PRESENT: conjunctiva pink, EOMI, PERRLA. ABSENT: scleral icterus Ear exam: PRESENT: normal external ear exam Mouth exam: PRESENT: moist, tongue midline Neck exam: PRESENT: full ROM. ABSENT: carotid bruit, JVD, lymphadenopathy, thyromegaly Respiratory exam: PRESENT: clear to auscultation wei Cardiovascular exam: PRESENT: RRR. ABSENT: diastolic murmur, rubs, systolic murmur Pulses: PRESENT: normal dorsalis pedis pul, +2 pedal pulses bilateral Vascular exam: PRESENT: normal capillary refill GI/Abdominal exam: PRESENT: normal bowel sounds, soft. ABSENT: distended, guarding, mass, organolmegaly, rebound, tenderness Rectal exam: PRESENT: deferred Extremities exam: ABSENT: pedal edema Neurological exam: PRESENT: alert, awake, oriented to person, oriented to place , oriented to time, oriented to situation, CN II-XII grossly intact. ABSENT: motor sensory deficit Psychiatric exam: PRESENT: appropriate affect, normal mood. ABSENT: homicidal ideation, suicidal ideation Skin exam: PRESENT: dry, intact, warm. ABSENT: cyanosis, rash Results Laboratory Results: 11/25/16 04:53 11/25/16 04:53 11/25/16 11/25/16 04:53 04:53 WBC 6.9 RBC 2.97 L Hgb 9.2 L Hct 27.5 L MCV 93 MCH 31.2 MCHC 33.7 RDW 14.6 H Plt Count 197 Seg Neutrophils % 60.3 Lymphocytes % 25.0 Monocytes % 8.4 Eosinophils % 5.4 Basophils % 0.9 Absolute Neutrophils 4.2 Absolute Lymphocytes 1.7 Absolute Monocytes 0.6 Absolute Eosinophils 0.4 Absolute Basophils 0.1 Sodium 137.3 Potassium 4.3 Chloride 107 Carbon Dioxide 23 Anion Gap 7 BUN 24 H Creatinine 1.19 Est GFR ( Amer) 52 L Est GFR (Non-Af Amer) 43 L Glucose 94 Calcium 8.1 L Assessment & Plan - Diagnosis (1) ESBL (extended spectrum beta-lactamase) producing bacteria infection Is this a current diagnosis for this admission?: YesPlan: Continues to IV AntibioticPlan to may be a put in a PICC line and discharged home with IV antibiotic (2) Urinary tract infection Qualifiers: Urinary tract infection type: acute cystitis Hematuria presence: without hematuria Qualified Code(s): N30.00 - Acute cystitis without hematuria Is this a current diagnosis for this admission?: YesPlan: ESBL (3) Back pain Qualifiers: Back pain location: low back pain Is this a current diagnosis for this admission?: YesPlan: Stable (4) Diabetes Qualifiers: Diabetes mellitus type: type 2 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 Is this a current diagnosis for this admission?: YesPlan: Continues the current medication the sliding scale (5) Hyperlipemia Qualifiers: Hyperlipidemia type: unspecified Qualified Code(s): E78.5 - Hyperlipidemia, unspecified Is this a current diagnosis for this admission?: YesPlan: Stable (6) Neuropathy Is this a current diagnosis for this admission?: YesPlan: Continues to Lyrica (7) Rectal cancer Plan: Stable (8) Anemia Qualifiers: Iron deficiency anemia type: unspecified iron deficiency Is this a current diagnosis for this admission?: YesPlan: Stable (9) Atrial fibrillation Qualifiers: Atrial fibrillation type: paroxysmal Qualified Code(s): I48.0 - Paroxysmal atrial fibrillation Is this a current diagnosis for this admission?: Yes (10) Chronic kidney disease (CKD) stage G1/A3, glomerular filtration rate (GFR) equal to or greater than 90 mL/min/1.73 square meter and albuminuria creatinine ratio greater than 300 mg/g Is this a current diagnosis for this admission?: Yes - Time Time Spent with patient: 15-24 minutes Medications reviewed and adjusted accordingly: Yes Anticipated discharge: SNF Within: within 24 hours - Inpatient Certification Medical Necessity: Need for IV Antibiotics Post Hospital 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
[2016-11-25] MEDS: OXYCODONE HCL IR 5 MG TABLET PO PRN (15:45)
[2016-11-25 16:02] LABS: PROTHROMBIN TIME 13.8 SEC (11.4-15.4)
[2016-11-25 16:03] LABS: PARTIAL THROMBOPLASTIN TIME 36.2 SEC (23.5-35.8)
[2016-11-25] MEDS: NYSTATIN TOPICAL POWDER 15 GM TP SCH (17:58)
[2016-11-25] MEDS: GLIMEPIRIDE 1 MG TABLET PO SCH (17:59)
[2016-11-25] MEDS: ATORVASTATIN CALCIUM 40 MG TABLET PO SCH (21:14)
[2016-11-26] MEDS: ONDANSETRON 4 MG TAB.RAPDIS PO PRN ×3 (00:49→11:50)
[2016-11-26 05:12] LABS: ABSOLUTE BASOPHILS # (AUTO) 0.1 10^3/uL (0.0-0.2); ABSOLUTE EOSINOPHILS # (AUTO) 0.3 10^3/uL (0.0-0.6); ABSOLUTE LYMPHOCYTES (AUTO) 1.6 10^3/uL (0.5-4.7); ABSOLUTE MONOCYTES (AUTO) 0.6 10^3/uL (0.1-1.4); ABSOLUTE NEUT (AUTO) 5.6 10^3/uL (1.7-8.2); BASOPHILS % (AUTO) 0.9 % (0-2); EOSINOPHILS % (AUTO) 4.3 % (0-6); HEMATOCRIT 28.1 % (36.0-47.0); HEMOGLOBIN 9.6 g/dL (12.0-15.5); HGB HCT DIFFERENCE 0.7; LYMPHOCYTES % (AUTO) 19.2 % (13-45); MEAN CORPUSCULAR HEMOGLOBIN 31.2 pg (27.0-33.4); MEAN CORPUSCULAR VOLUME 92 fl (80-97); MONOCYTES % (AUTO) 7.1 % (3-13); RED BLOOD COUNT 3.07 10^6/uL (3.72-5.28); RED CELL DISTRIBUTION WIDTH 14.4 % (11.5-14.0); SEGMENTED NEUTROPHILS % (AUTO) 68.5 % (42-78); WHITE BLOOD COUNT 8.1 10^3/uL (4.0-10.5)
[2016-11-26 05:41] LABS: ANION GAP 9 (5-19); BLOOD UREA NITROGEN 20 mg/dL (7-20); CALCIUM 8.6 mg/dL (8.4-10.2); CARBON DIOXIDE 23 mmol/L (22-30); CHLORIDE 107 mmol/L (98-107); CREATININE RESULT 1.14 mg/dL (0.52-1.25); GLUCOSE 86 mg/dL (75-110); POTASSIUM 4.5 mmol/L (3.6-5.0); SODIUM 138.5 mmol/L (137-145)
--- NOTE | 2016-11-26 08:29 | PDOC TRANSFER SUMMARY ---
General - Admit/Disc Date/PCP Admission Date/Primary Care Provider: 11/24/16 08:00 BONITA LYNN MD Discharge Date: 11/26/16 - Discharge Diagnosis (1) ESBL (extended spectrum beta-lactamase) producing bacteria infection Is this a current diagnosis for this admission?: YesSummary: Continues IV Invanz for 1 week and follow with the urologist as outpatient energy. The urine cultures from this the antibiotic (2) Urinary tract infection Is this a current diagnosis for this admission?: YesSummary: From ESBL (3) Back pain Is this a current diagnosis for this admission?: YesSummary: Stable (4) Diabetes Is this a current diagnosis for this admission?: YesSummary: continue the current medications (5) Hyperlipemia Is this a current diagnosis for this admission?: Yes (6) Neuropathy Is this a current diagnosis for this admission?: Yes (8) Anemia Is this a current diagnosis for this admission?: Yes (9) Atrial fibrillation Is this a current diagnosis for this admission?: Yes (10) Chronic kidney disease (CKD) stage G1/A3, glomerular filtration rate (GFR) equal to or greater than 90 mL/min/1.73 square meter and albuminuria creatinine ratio greater than 300 mg/g Is this a current diagnosis for this admission?: Yes - Additional Information Resuscitation Status: Full Code Discharge Diet: As Tolerated Discharge Activity: Activity As Tolerated Home Medications: Atenolol [Tenormin 50 mg Tablet] 50 mg PO DAILY 11/24/16 Atorvastatin Calcium [Lipitor 40 mg Tablet] 40 mg PO DAILY 11/24/16 Escitalopram Oxalate [Lexapro 10 mg Tablet] 10 mg PO QAM 11/24/16 Escitalopram Oxalate [Lexapro] 5 mg PO QAM 11/24/16 Fluticasone Propionate [Flonase Nasal [place] 50 Mcg/[place] 16 gm] 1 spray NASL DAILY 11/24/16 Glimepiride [Amaryl] 2 mg PO BID 11/24/16 Isosorbide Mononitrate [Isosorbide Mononitrate ER] 30 mg PO DAILY 11/24/16 Omeprazole 20 mg PO BID 11/24/16 Ondansetron [Zofran Odt 4 mg Tablet] 4 mg PO Q6HP PRN 11/24/16 Oxycodone HCl 20 mg PO Q6HP PRN 11/24/16 Potassium Chloride [Klor-Con 10 Meq Tablet.sa] 10 meq PO BID 11/24/16 Ertapenem Sodium [Invanz Inj 1 gm Vial] 1 gm IVPB DAILY #7 vial 11/26/16 History of Present Illness Admission Date/PCP: 11/24/16 08:00 BONITA LYNN MD History of Present Illness: [id number] with hx of L uretral stricure related to tx for colon cancer, managed with indwelling ureteral stent, changed quarterly. C/O ongoing marked dysuria which does not improve in response to antb for culture documented uti's. Modest improvement in response to Pyridium. Infections not asoc'd with f/c/n/v or flank pain. No gross hematuria. No pneumaturia or fecaluria. Admission u/a c/w infection, preliminary culture report + for GNR >100k. Since admission, afeb with VSS. WBC normal. CT reveals stent in good position, some residual hydro, no evidence of enterovesical fistula. Renal fxn OK for age. Hospital Course Hospital Course: This is a 86-year-old female came to the edema is a department with the urinary symptoms and patient was admitted in the hospital for further IV antibiotic and the urology was consulted because of ureter stent and suggest the continues to stand right now and continues IV antibiotics. Patient's other medical problem was all stable and patient's shock senior care for the IV antibiotic for 7 more days Physical Exam Vital Signs: Temp Pulse Resp BP Pulse Ox 97.7 F 60 19 112/36 L 100 11/26/16 05:40 11/26/16 07:00 11/26/16 05:40 11/26/16 05:40 11/26/16 05:40 Intake & Output 11/25/16 11/26/16 11/27/16 06:59 06:59 06:59 Intake Total 210 725 Output Total 500 Balance -290 725 Weight 83.2 kg 85.2 kg General appearance: PRESENT: no acute distress, well-developed, well-nourished Head exam: PRESENT: atraumatic, normocephalic Eye exam: PRESENT: conjunctiva pink, EOMI, PERRLA. ABSENT: scleral icterus Ear exam: PRESENT: normal external ear exam Mouth exam: PRESENT: moist, tongue midline Neck exam: ABSENT: carotid bruit, JVD, lymphadenopathy, thyromegaly Respiratory exam: PRESENT: clear to auscultation wei. ABSENT: rales, rhonchi, wheezes Cardiovascular exam: PRESENT: RRR. ABSENT: diastolic murmur, rubs, systolic murmur Pulses: PRESENT: normal dorsalis pedis pul Vascular exam: PRESENT: normal capillary refill GI/Abdominal exam: PRESENT: normal bowel sounds, soft. ABSENT: distended, guarding, mass, organolmegaly, rebound, tenderness Rectal exam: PRESENT: deferred Extremities exam: PRESENT: full ROM. ABSENT: calf tenderness, clubbing, pedal edema Neurological exam: PRESENT: alert, awake, oriented to person, oriented to place , oriented to time, oriented to situation, CN II-XII grossly intact. ABSENT: motor sensory deficit Psychiatric exam: PRESENT: appropriate affect, normal mood. ABSENT: homicidal ideation, suicidal ideation Skin exam: PRESENT: dry, intact, warm. ABSENT: cyanosis, rash Results Laboratory Results: 11/26/16 04:35 11/26/16 04:35 11/26/16 11/26/16 04:35 04:35 WBC 8.1 RBC 3.07 L Hgb 9.6 L Hct 28.1 L MCV 92 MCH 31.2 MCHC 34.0 RDW 14.4 H Plt Count 201 Seg Neutrophils % 68.5 Lymphocytes % 19.2 Monocytes % 7.1 Eosinophils % 4.3 Basophils % 0.9 Absolute Neutrophils 5.6 Absolute Lymphocytes 1.6 Absolute Monocytes 0.6 Absolute Eosinophils 0.3 Absolute Basophils 0.1 Sodium 138.5 Potassium 4.5 Chloride 107 Carbon Dioxide 23 Anion Gap 9 BUN 20 Creatinine 1.14 Est GFR ( Amer) 55 L Est GFR (Non-Af Amer) 45 L Glucose 86 Calcium 8.6 Transfer Plan - Disposition Transfer Plan: Noncontrast portable nursing homes with the PICC line and IV antibiotic for 7 days - Time Spent with Patient Time spent with patient: Greater than 30 Minutes Plan Discharge Plan: Continues to IV antibiotic
[2016-11-26] MEDS: FUROSEMIDE 40 MG TABLET PO SCH (08:49)
[2016-11-26] MEDS: ESCITALOPRAM OXALATE 10 MG TABLET PO SCH (08:50)
[2016-11-26] MEDS: ERTAPENEM SODIUM 1 GM in NORMAL SALINE 50 ML IV SCH (11:49)
[2016-11-26] MEDS: SITAGLIPTIN PHOSPHATE 50 MG TABLET PO SCH (11:49)
[2016-11-26] MEDS: POTASSIUM CHLORIDE 10 MEQ TABLET.SA PO SCH (11:49)
[2016-11-26] MEDS: LANSOPRAZOLE 15 MG TAB.RAP.DR PO SCH (11:50)
[2016-11-26] MEDS: CHOLECALCIFEROL (D3) 1,000 UNIT TABLET PO SCH (11:50)
[2016-11-26] MEDS: PREGABALIN 50 MG CAPSULE PO SCH (11:50)
[2016-11-26] MEDS: ISOSORBIDE MONONITRATE 60 MG TAB.ER.24H PO SCH (11:50)
[2016-11-26] MEDS: DOXYCYCLINE HYCLATE 100 MG TABLET PO SCH (11:51)
[2016-11-26] MEDS: APIXABAN 2.5 MG TABLET PO SCH (11:51)
[2016-11-26] MEDS: DOCUSATE SODIUM 100 MG CAPSULE PO SCH (12:08)
[2016-11-26] MEDS: PHENAZOPYRIDINE HCL 100 MG TABLET PO SCH ×2 (12:25→16:47)
[2016-11-26] MEDS: NYSTATIN TOPICAL POWDER 15 GM TP SCH (12:26)
[2016-11-26 13:25] VITALS: BP 103/35
== END 2016-11-26 18:45 | DRG 690 ==
LOC: ER 18:59 → UNDOADMIN 11-24 00:16 → EH 11-24 00:16 → 4N 11-24 03:06 → EH 11-24 03:06 → UNDOADMIN 11-24 06:31 → 4N 11-24 06:31
PROVIDERS: ADMIT Family Medicine; ATTEND Family Medicine
PROC: 02HV33Z Insertion of Infusion Device into Superior Vena Cava, Percutaneous Approach (ICD-10-PCS; principal; 2016-11-26)
PROC: B5181ZA Fluoroscopy of Superior Vena Cava using Low Osmolar Contrast, Guidance (ICD-10-PCS; 2016-11-26)
PROC: B548ZZA Ultrasonography of Superior Vena Cava, Guidance (ICD-10-PCS; 2016-11-26)
DX: N30.00 Acute cystitis without hematuria (principal); Z16.12 Extended spectrum beta lactamase (ESBL) resistance; M54.9 Dorsalgia, unspecified; E78.5 Hyperlipidemia, unspecified; D64.9 Anemia, unspecified; E11.42 Type 2 diabetes mellitus with diabetic polyneuropathy; I48.0 Paroxysmal atrial fibrillation; I12.9 Hypertensive chronic kidney disease with stage 1 through stage 4 chronic kidney disease, or unspecified chronic kidney disease; N18.9 Chronic kidney disease, unspecified; I50.9 Heart failure, unspecified; I25.10 Atherosclerotic heart disease of native coronary artery without angina pectoris; K21.9 Gastro-esophageal reflux disease without esophagitis; F32.9 Major depressive disorder, single episode, unspecified; Z90.49 Acquired absence of other specified parts of digestive tract; Z79.899 Other long term (current) drug therapy; Z85.038 Personal history of other malignant neoplasm of large intestine; Z88.6 Allergy status to analgesic agent; Z88.1 Allergy status to other antibiotic agents; Z88.0 Allergy status to penicillin; Z91.041 Radiographic dye allergy status
CPT/HCPCS: 36415; 36569; 51701; 76937; 77001; 80048; 81001; 82962; 85025; 85610; 85730; 87040; 87086; 87088; 87186; 96374; 96375; 99285; C1769; J1335; J1642; J1815; J2270; J2405; J3490; J7030; S0119

== ENCOUNTER 2019-04-27 11:23 | Inpatient (IN) | payer MEDICARE, MEDICAID ==
[2019-04-27 11:47] LABS: ABSOLUTE BASOPHILS # (AUTO) 0.1 10^3/uL (0.0-0.2); ABSOLUTE EOSINOPHILS # (AUTO) 0.1 10^3/uL (0.0-0.6); ABSOLUTE LYMPHOCYTES (AUTO) 1.2 10^3/uL (0.5-4.7); ABSOLUTE MONOCYTES (AUTO) 1.1 10^3/uL (0.1-1.4); ABSOLUTE NEUT (AUTO) 10.4 10^3/uL (1.7-8.2); BASOPHILS % (AUTO) 0.8 % (0-2); EOSINOPHILS % (AUTO) 0.8 % (0-6); HEMATOCRIT 34.1 % (36.0-47.0); HEMOGLOBIN 11.2 g/dL (12.0-15.5); MEAN CORPUSCULAR HEMOGLOBIN 31.3 pg (27.0-33.4); MEAN CORPUSCULAR HGB CONC 32.9 g/dL (32.0-36.0); MEAN CORPUSCULAR VOLUME 95 fl (80-97); MONOCYTES % (AUTO) 8.3 % (3-13); PLATELET COUNT 267 10^3/uL (150-450); RED BLOOD COUNT 3.58 10^6/uL (3.72-5.28); SEGMENTED NEUTROPHILS % (AUTO) 81.1 % (42-78); TOTAL CELLS COUNTED % (AUTO) 100 %; WHITE BLOOD COUNT 12.8 10^3/uL (4.0-10.5)
[2019-04-27 11:54] LABS: INTERNATIONAL RATION (INR) 1.48; PROTHROMBIN TIME 18.1 SEC (11.4-15.4)
--- NOTE | 2019-04-27 12:03 | RADIOLOGY REPORT (SQ) ---
EXAM DESCRIPTION: CHEST SINGLE VIEW COMPLETED DATE/TIME: 04/27/2019 11:50 am REASON FOR STUDY: bed mp sepsis protocol COMPARISON: None. EXAM PARAMETERS: NUMBER OF VIEWS: One view. TECHNIQUE: Single frontal radiographic view of the chest acquired. RADIATION DOSE: NA LIMITATIONS: None. FINDINGS: LUNGS AND PLEURA: No opacities, masses or pneumothorax. No pleural effusion. MEDIASTINUM AND HILAR STRUCTURES: No masses. Contour normal. HEART AND VASCULAR STRUCTURES: Heart normal in size. Normal vasculature. BONES: No acute findings. HARDWARE: None in the chest. OTHER: No other significant finding. IMPRESSION: NO ACUTE RADIOGRAPHIC FINDING IN THE CHEST. Low lung volumes TECHNICAL DOCUMENTATION: JOB ID: [id number] [employer]- All Rights Reserved Reading location - IP/workstation name: [email or web address]
[2019-04-27 12:08] LABS: ALANINE AMINOTRANSFERASE 22 U/L (9-52); ALBUMIN 2.7 g/dL (3.5-5.0); ALKALINE PHOSPHATASE 97 U/L (38-126); ANION GAP 9 (5-19); ASPARTATE AMINO TRANSFERASE 15 U/L (14-36); BILIRUBIN,DIRECT 0.5 mg/dL (0.0-0.4); BILIRUBIN,TOTAL 0.8 mg/dL (0.2-1.3); BLOOD UREA NITROGEN 31 mg/dL (7-20); CALCIUM 8.2 mg/dL (8.4-10.2); CARBON DIOXIDE 35 mmol/L (22-30); CHLORIDE 92 mmol/L (98-107); GLUCOSE 170 mg/dL (75-110); POTASSIUM 4.2 mmol/L (3.6-5.0); SODIUM 135.9 mmol/L (137-145); TOTAL PROTEIN 5.7 g/dL (6.3-8.2)
[2019-04-27] MEDS ORDERED: NORMAL SALINE 1000 ML 1,000 ML IV ONE ×2 (12:35→16:26)
--- NOTE | 2019-04-27 12:35 | ER Document Report ---
Entered by EDYTA WONG SCRIBE 04/27/19 1154 Acting as scribe for:JACOB GUADARRAMA MD ED General - General Chief Complaint: Altered Mental Status Stated Complaint: COUGH Time Seen by Provider: 04/27/19 11:47 Primary Care Provider: KAILA GARLAND MD [Primary Care Provider] - Follow up as needed Notes: Patient is a 89-year-old female that was diagnosed with pneumonia yesterday presenting to the emergency department with altered mental status and associated cough. Daughter at bedside states that patient was given anxiety medicine 04/23. Daughter states that the patient has been very altered and she is usually more responsive than she is right now. Patient had a chest x-ray at the half-way, was diagnosed with pneumonia yesterday, but no treatment was started. Patient was put on a new medication for anxiety on 04/23/2019. The med rec that they sent from half-way was sig susan and verified on 04/12/2019, so we do not know what the medication is. Family reports that when they saw her on 04/24/2019, he was very drowsy and seem to be overly medicated. She is normally on nasal oxygen at 2.5 L At this time she is quite somnolent, responds to noxious stimulus, but is very hard to keep her awake. Her breathing seems to be a combination of abdominal and thoracic muscles alternating. The charge nurse called the half-way and found that the patient had been put on BuSpar 5 mg twice daily for anxiety. This was started on 04/21/2019, and was stopped this morning. I am not sure if she got a dose this morning but it is unlikely given how lethargic she is. TRAVEL OUTSIDE OF THE [place] IN LAST 30 DAYS: No - Related Data Allergies/Adverse Reactions: aspirin Allergy (Verified 11/24/16 02:04) dipyridamole [From Persantine] Allergy (Verified 11/24/16 02:04) nalbuphine [From Nubain] Allergy (Verified 11/24/16 02:04) Penicillins Allergy (Verified 11/24/16 02:04) Sulfa (Sulfonamide Antibiotics) Allergy (Verified 11/24/16 02:04) IVC dye Allergy (Uncoded 11/24/16 02:04) Past Medical History - General Information source: Relative - Social History Smoking Status: Never Smoker Cigarette use (# per day): No Frequency of alcohol use: None Drug Abuse: None Family History: Reviewed & Not Pertinent - Past Medical History Cardiac Medical History: Reports: Hx Congestive Heart Failure, Hx Coronary Artery Disease, Hx Hypercholesterolemia, Hx Hypertension - many yrs Pulmonary Medical History: Reports: Hx Asthma - sob with exertion Endocrine Medical History: Reports: Hx Diabetes Mellitus Type 2 - no meds GI Medical History: Reports: Hx Gastroesophageal Reflux Disease Musculoskeletal Medical History: Reports Hx Arthritis - legs Psychiatric Medical History: Reports: Hx Depression Past Surgical History: Reports: Hx Appendectomy, Hx Breast Surgery - L breast cycst removal, Hx Cardiac Catheterization - x2, Hx Cholecystectomy, Hx Colostomy, Hx Rectal Surgery - Colostomy, Other - Immunizations Hx Diphtheria, Pertussis, Tetanus Vaccination: Yes Review of Systems - Review of Systems Constitutional: No symptoms reported EENT: No symptoms reported Cardiovascular: No symptoms reported Respiratory: See HPI, Cough Gastrointestinal: No symptoms reported Genitourinary: No symptoms reported Female Genitourinary: No symptoms reported Musculoskeletal: No symptoms reported Skin: No symptoms reported Hematologic/Lymphatic: No symptoms reported Neurological/Psychological: See HPI, Other - Altered mental status -: Yes All other systems reviewed and negative Physical Exam - Vital signs Vitals: Pulse Resp BP Pulse Ox 114 H 20 119/52 L 96 04/27/19 11:24 04/27/19 11:24 04/27/19 11:24 04/27/19 11:24 - Notes Notes: Physical Exam: General: Somnolent, does not interact. Holds eyes shut. Resists having her eyelids pulled open. HEENT: Normocephalic. Atraumatic. PERRL. Extraocular movements intact. Oropharynx clear. Mouth and tongue appear to be dry. Neck: Supple. Non-tender. Respiratory: No respiratory distress. Rhonchi. Cough. Cardiovascular: Regular rate and rhythm. Abdominal: Obese. Non-tender. No distension. Normal Bowel Sounds. Back: Non-tender. Extremities: Moves all four extremities. Upper extremities: Normal inspection. Normal ROM. Lower extremities: Normal inspection. No edema. Normal ROM. Neurological: There are no obvious neurological deficits. The patient is quite somnolent and cannot cooperate at all with an exam. Psychological: Cannot evaluate due to the patient's somnolence. Skin: Warm. Dry. Normal color. Course - Re-evaluation Re-evalutation: 04/27/19 13:44 Venous blood gas shows the patient is ventilating with CO2 retention. Venous pCO2 is 78.7 I discussed with the family about advanced directives and [place], they state there is nothing in writing, but the patient stated she did not want to be resuscitated as she had seen her spouse go through that same thing. I asked if that included intubation and ventilatory management, and the daughter stated yes. 04/27/19 14:17 Blood gas obtained on 2 L nasal cannula shows a pH of 7.34, PCO2 of 62.7, PO2 of 68.3 her serum CO2 was 35, looking back on prior lab testing she has been in the low 30s and is high as 35 over the last 2 years. It is unlikely this elevated PCO2 is causing her somnolence, but her somnolence could be contributing to her elevated PCO2. There is still waiting to get a urinalysis to see if UTI might be the cause of her illness. - Vital Signs Vital signs: Temp Pulse Resp BP Pulse Ox 98.5 F 114 H 14 119/52 L 97 04/27/19 11:37 04/27/19 11:24 04/27/19 14:10 04/27/19 11:24 04/27/19 14:10 - Laboratory Result Diagrams: 04/27/19 11:34 04/27/19 11:34 Laboratory results interpreted by me: 04/27/19 04/27/19 04/27/19 11:34 11:34 11:34 WBC 12.8 H RBC 3.58 L Hgb 11.2 L Hct 34.1 L RDW 15.0 H Seg Neutrophils % 81.1 H Lymphocytes % 9.0 L Absolute Neutrophils 10.4 H PT 18.1 H Carbonic Acid ABG pH ABG pCO2 ABG pO2 ABG HCO3 ABG Total CO2 ABG O2 Saturation VBG pCO2 VBG HCO3 Sodium 135.9 L Chloride 92 L Carbon Dioxide 35 H BUN 31 H Est GFR ( Amer) 51 L Est GFR (Non-Af Amer) 42 L Glucose 170 H POC Glucose Calcium 8.2 L Direct Bilirubin 0.5 H Total Protein 5.7 L Albumin 2.7 L 04/27/19 04/27/19 04/27/19 11:34 12:52 13:47 WBC RBC Hgb Hct RDW Seg Neutrophils % Lymphocytes % Absolute Neutrophils PT Carbonic Acid 1.89 H ABG pH 7.34 L ABG pCO2 62.7 H ABG pO2 68.3 L ABG HCO3 32.9 H ABG Total CO2 34.8 H ABG O2 Saturation 92.1 L VBG pCO2 78.7 H* VBG HCO3 39.5 H Sodium Chloride Carbon Dioxide BUN Est GFR ( Amer) Est GFR (Non-Af Amer) Glucose POC Glucose 169 H Calcium Direct Bilirubin Total Protein Albumin - Diagnostic Test Radiology reviewed: Image reviewed, Reports reviewed - Chest x-ray shows low lung volumes with no radiographic abnormalities noted. - EKG Interpretation by Ok EKG shows normal: Sinus rhythm, Rudolph, Intervals, QRS Complexes, ST-T Waves Rate: Tachycardia - 125 Rhythm: A.Fib Rudolph/QRS: Right axis deviation When compared to previous EKG there are: No significant change - Consults Susana Gomez NP Time consulted: 15:12 Consulted provider: will come to ER Discharge - Discharge Clinical Impression: Lethargy, Hypercarbia, Chronic atrial fibrillation Condition: Fair Disposition: ADMITTED INPATIENT Admitting Provider: Jeet (Hospitalist) Unit Admitted: [facility] Referrals: KAILA GARLAND MD [Primary Care Provider] - Follow up as needed Scribe Attestation: 04/27/19 15:13 I personally performed the services described in the documentation, reviewed and edited the documentation which was dictated to the scribe in my presence, and it accurately records my words and actions. I personally performed the services described in the documentation, reviewed and edited the documentation which was dictated to the scribe in my presence, and it accurately records my words and actions.
[2019-04-27 13:18] LABS: VENOUS BLOOD BASE EXCESS 10.5 mmol/L; VENOUS BLOOD HCO3 39.5 mmol/L (20-32); VENOUS BLOOD PH 7.32 (7.30-7.42)
[2019-04-27 13:21] LABS: VENOUS BLOOD PCO2 78.7 mmHg (35-63)
--- NOTE | 2019-04-27 13:36 | EKG REPORT ---
SEVERITY:- ABNORMAL ECG - ATRIAL FLUTTER/FIBRILLATION, A-RATE 244 BORDERLINE RIGHT AXIS DEVIATION EARLY TRANSITION, NEED TO CONSIDER OLD TRUE POST GA. : Confirmed by: Jeff Lr MD 27-Apr-2019 13:35:33
[2019-04-27 13:55] LABS: ARTERIAL BLOOD BASE EXCESS 5.5 mmol/L; ARTERIAL BLOOD H2CO3 1.89 mmol/L (1.05-1.35); ARTERIAL BLOOD HCO3 32.9 mmol/L (20-24); ARTERIAL BLOOD O2 SATURATION 92.1 % (94-98); ARTERIAL BLOOD PCO2 62.7 mmHg (35-45); ARTERIAL BLOOD PH 7.34 (7.35-7.45); ARTERIAL BLOOD PO2 68.3 mmHg (80-100); ARTERIAL BLOOD TOTAL CO2 34.8 mmol/L (21-25)
[2019-04-27 13:59] LABS: ARTERIAL BLOOD FIO2 2L
[2019-04-27] MEDS ORDERED: GLUCAGON,HUMAN RECOMB 1 MG INJ SUBCUT PRN (16:30)
[2019-04-27] MEDS ORDERED: ONDANSETRON HCL INJ/PF 4 MG/2 ML SDV IV PRN (16:30)
[2019-04-27] MEDS ORDERED: LEVALBUTEROL HCL NEB 1.25 MG/3 ML AMPUL NEB PRN (16:30)
[2019-04-27] MEDS ORDERED: DEXTROSE 40% GEL 15 GM TUBE PO PRN ×2 (16:30)
[2019-04-27] MEDS ORDERED: DEXTROSE 50%-WATER 25 GM/50 ML DISP.SYRIN IV PRN ×2 (16:30)
[2019-04-27] MEDS ORDERED: ACETAMINOPHEN 650 MG SUPP.RECT PR PRN (16:30)
--- NOTE | 2019-04-27 17:43 | RADIOLOGY REPORT (SQ) ---
EXAM DESCRIPTION: CT HEAD WITHOUT COMPLETED DATE/TIME: 04/27/2019 5:29 pm REASON FOR STUDY: altered mental status COMPARISON: CT brain 10/18/2016, 08/30/2013 TECHNIQUE: Axial images acquired through the brain without intravenous contrast. Images reviewed wi th bone, brain and subdural windows. Additional sagittal and coronal reconstructions were generated. Images stored on PACS. All CT scanners at this facility use dose modulation, iterative reconstruction, and/or weight based d osing when appropriate to reduce radiation dose to as low as reasonably achievable (ALARA). [facility]: Dose Right [facility]: CareDose [facility]: Dose Right [facility]: Teradose 4D [facility]: [employer] RADIATION DOSE: CT Rad equipment meets quality standard of care and radiation dose reduction techniq ues were employed. CTDIvol: 53.2 mGy. DLP: 991 mGy-cm. mGy. LIMITATIONS: None. FINDINGS: VENTRICLES: Normal size and contour. CEREBRUM: No masses. No hemorrhage. No midline shift. No evidence for acute infarction. Normal gra y/white matter differentiation. No areas of low density in the white matter. CEREBELLUM: No masses. No hemorrhage. No alteration of density. No evidence for acute infarction. EXTRAAXIAL SPACES: No fluid collections. No masses. ORBITS AND GLOBE: No intra- or extraconal masses. Normal contour of globe without masses. CALVARIUM: No fracture. PARANASAL SINUSES: No fluid or mucosal thickening. SOFT TISSUES: No mass or hematoma. OTHER: No other significant finding. IMPRESSION: NORMAL BRAIN CT WITHOUT CONTRAST. EVIDENCE OF ACUTE STROKE: NO. COMMENT: Quality ID # [id number]: Final reports with documentation of one or more dose reduction techniques (e.g., Automated exposure control, adjustment of the mA and/or kV according to patient size, use of iterative reconstruction technique) TECHNICAL DOCUMENTATION: JOB ID: [id number] [employer]- All Rights Reserved Reading location - IP/workstation name: [email or web address]
[2019-04-27 18:57] LABS: ARTERIAL BLOOD BASE EXCESS 2.3 mmol/L; ARTERIAL BLOOD H2CO3 1.65 mmol/L (1.05-1.35); ARTERIAL BLOOD O2 SATURATION 95.7 % (94-98); ARTERIAL BLOOD PCO2 54.8 mmHg (35-45); ARTERIAL BLOOD PH 7.34 (7.35-7.45); ARTERIAL BLOOD PO2 85.3 mmHg (80-100); ARTERIAL BLOOD TOTAL CO2 30.7 mmol/L (21-25)
[2019-04-27 18:59] LABS: ARTERIAL BLOOD FIO2 50%
--- NOTE | 2019-04-27 19:34 | PDOC H&P ---
History of Present Illness Admission Date/PCP: 04/27/19 15:23 KAILA GARLAND MD Patient complains of: altered mental status History of Present Illness: MICHELLE HAYDEN is a 89 year old female with a past medical history significant for CHF, atrial fibrillation (anticoagulated on Eliquis, hypertension, hyperlipidemia, CAD, COPD, DM, CKD 3, anemia, GERD, depression and anxiety, and nonambulatory status secondary to neuropathy who presented to the emergency department from [place] via EMS for report of altered mental status. Per family member the patient was last known well 4 days ago when she was visited for her birthday. At that time the patient was fatigued, but oriented to her baseline and interacting with family members without complaints. The the patient was noted to have increased lethargy. Of note she was started on BuSpar twice daily at that time. Per family members the patient has not had fever/chills, cough, complaint of shortness of breath, nausea, vomiting, diarrhea, or urinary tract symptoms. Other than her progressively increased lethargy there have been no objective symptoms. Evaluation in the emergency department revealed tachycardia, hypoxia, acute respiratory failure with hypoxia and hypercapnia, mild leukocytosis, baseline anemia, mild dehydration, and benign chest x-ray, head CT, and EKG. She is referred to the hospitalist service for admission and management of acute respiratory failure, altered mental status, and SIRS Past Medical History Cardiac Medical History: Reports: Congestive Heart Failure, Coronary Artery Disease, Hyperlipidema, Hypertension Denies: Myocardial Infarction Pulmonary Medical History: Reports: Chronic Obstructive Pulmonary Disease (COPD), Respiratory Failure - Home O2 dependent Denies: Bronchitis, Pneumonia, Tuberculosis EENT Medical History: Reports: None Neurological Medical History: Denies: Ischemic CVA, Seizures Endocrine Medical History: Reports: Diabetes Mellitus Type 2, Obesity Renal/ Medical History: Reports: Chronic Kidney Disease GI Medical History: Reports: Gastroesophageal Reflux Disease Musculoskeltal Medical History: Reports: Arthritis Psychiatric Medical History: Reports: Depression, General Anxiety Disorder Hematology: Reports: Anemia Infectious Medical History: Reports: Methicillin-Resistant Staph Aureus Past Surgical History Past Surgical History: Reports: Appendectomy, Cardiac Catheterization - x2, Cholecystectomy, Colostomy, Other Denies: Hysterectomy, Pacemaker Social History Information Source: Relative, [facility] Records Lives with: Skilled Nursing Smoking Status: Never Smoker Frequency of Alcohol Use: None Hx Recreational Drug Use: No Hx Prescription Drug Abuse: No - Advance Directive Resuscitation Status: Do Not Resuscitate Surrogate healthcare decision maker:: The patient's daughter, Troy Toledo, Family History Family History: Reviewed & Not Pertinent Parental Family History Reviewed: Yes Children Family History Reviewed: Yes Sibling(s) Family History Reviewed.: Yes Medication/Allergy Home Medications: Atorvastatin Calcium [Lipitor 40 mg Tablet] 40 mg PO DAILY 11/24/16 Isosorbide Mononitrate [Isosorbide Mononitrate ER] 30 mg PO DAILY 11/24/16 Omeprazole 20 mg PO BID 11/24/16 Acetaminophen [Tylenol] 650 mg PO QHS 04/27/19 Apixaban [Eliquis 2.5 mg Tablet] 2.5 mg PO BID 04/27/19 Carvedilol [Coreg 12.5 mg Tablet] 12.5 mg PO Q12 04/27/19 Cranberry Extract [Cranberry 250 mg Tablet] 250 mg PO DAILY 04/27/19 Duloxetine HCl [Cymbalta 30 mg Capsule.dr] 90 mg PO DAILY 04/27/19 Fluticasone Propionate [Flonase Nasal [place] 50 Mcg/[place] 16 gm] 1 spray NAREB DAILY 04/27/19 Furosemide [Lasix 40 mg Tablet] 40 mg PO DAILY 04/27/19 Insulin Glargine,Hum.rec.anlog [Basaglar Kwikpen U-100] 20 unit SQ QHS 04/27/19 Insulin Lispro [Humalog Insulin 100 Unit/1 ml 3 ml Vial] 0 unit SUBCUT .SLD SCALE 04/27/19 Linagliptin [Tradjenta] 5 mg PO DAILY 04/27/19 Oxycodone HCl [Oxy-Ir 5 mg Tablet] 5 mg PO Q12HP PRN 04/27/19 Pregabalin [Lyrica 50 Mg Capsule] 50 mg PO Q12 04/27/19 Allergies/Adverse Reactions: aspirin Allergy (Verified 11/24/16 02:04) dipyridamole [From Persantine] Allergy (Verified 11/24/16 02:04) nalbuphine [From Nubain] Allergy (Verified 11/24/16 02:04) Penicillins Allergy (Verified 11/24/16 02:04) Sulfa (Sulfonamide Antibiotics) Allergy (Verified 11/24/16 02:04) IVC dye Allergy (Uncoded 11/24/16 02:04) Review of Systems ROS unobtainable: Due to mental status Physical Exam Vital Signs: Temp Pulse Resp BP Pulse Ox 98.5 F 114 H 15 119/52 L 95 04/27/19 11:37 04/27/19 11:24 04/27/19 16:43 04/27/19 11:24 04/27/19 16:43 Intake & Output 04/26/19 04/27/19 04/28/19 06:59 06:59 06:59 Intake Total 1000 Balance 1000 Weight 88.541 kg General appearance: PRESENT: mild distress, morbidly obese, well-developed, well-nourished Head exam: PRESENT: atraumatic, normocephalic Eye exam: PRESENT: conjunctiva pink, PERRLA - sluggish. ABSENT: scleral icterus Mouth exam: PRESENT: dry mucosa, tongue midline Neck exam: ABSENT: carotid bruit, JVD, lymphadenopathy, thyromegaly Respiratory exam: PRESENT: decreased breath sounds - bibasilar, prolonged expiratory phas, rhonchi, symmetrical, tachypnea, wheezes, other - BiPAP. ABSENT: rales Cardiovascular exam: PRESENT: irregular rhythm, +S1, +S2, tachycardia. ABSENT: diastolic murmur, rubs, systolic murmur Pulses: PRESENT: +1 pedal pulses bilateral Vascular exam: PRESENT: normal capillary refill GI/Abdominal exam: PRESENT: normal bowel sounds, soft, other - Colostomy. ABSENT: distended, guarding, mass, organolmegaly, rebound, tenderness Rectal exam: PRESENT: deferred Extremities exam: PRESENT: pedal edema - Trace Neurological exam: PRESENT: other - Response to sternal rub; briefly opens eyes, does not answer questions or follow commands. ABSENT: motor sensory deficit Skin exam: PRESENT: dry, intact, warm. ABSENT: cyanosis, rash Results Laboratory Results: 04/27/19 11:34 04/27/19 11:34 04/27/19 04/27/19 04/27/19 11:34 11:34 11:34 WBC 12.8 H RBC 3.58 L Hgb 11.2 L Hct 34.1 L MCV 95 MCH 31.3 MCHC 32.9 RDW 15.0 H Plt Count 267 Seg Neutrophils % 81.1 H Lymphocytes % 9.0 L Monocytes % 8.3 Eosinophils % 0.8 Basophils % 0.8 Absolute Neutrophils 10.4 H Absolute Lymphocytes 1.2 Absolute Monocytes 1.1 Absolute Eosinophils 0.1 Absolute Basophils 0.1 Carbonic Acid HCO3/H2CO3 Ratio ABG pH ABG pCO2 ABG pO2 ABG HCO3 ABG O2 Saturation ABG Base Excess VBG pH VBG pCO2 VBG HCO3 VBG Base Excess FiO2 Sodium 135.9 L Potassium 4.2 Chloride 92 L Carbon Dioxide 35 H Anion Gap 9 BUN 31 H Creatinine 1.20 Est GFR ( Amer) 51 L Est GFR (Non-Af Amer) 42 L Glucose 170 H Lactic Acid 1.0 Calcium 8.2 L Total Bilirubin 0.8 AST 15 ALT 22 Alkaline Phosphatase 97 Total Protein 5.7 L Albumin 2.7 L Urine Color Urine Appearance Urine pH Ur Specific [place] Urine Protein Urine Glucose (UA) Urine Ketones Urine Blood Urine Nitrite Ur Leukocyte Esterase Urine WBC (Auto) Urine RBC (Auto) 04/27/19 04/27/19 04/27/19 12:29 12:52 13:47 WBC RBC Hgb Hct MCV MCH MCHC RDW Plt Count Seg Neutrophils % Lymphocytes % Monocytes % Eosinophils % Basophils % Absolute Neutrophils Absolute Lymphocytes Absolute Monocytes Absolute Eosinophils Absolute Basophils Carbonic Acid 1.89 H HCO3/H2CO3 Ratio 17:1 ABG pH 7.34 L ABG pCO2 62.7 H ABG pO2 68.3 L ABG HCO3 32.9 H ABG O2 Saturation 92.1 L ABG Base Excess 5.5 VBG pH 7.32 VBG pCO2 78.7 H* VBG HCO3 39.5 H VBG Base Excess 10.5 FiO2 2L Sodium Potassium Chloride Carbon Dioxide Anion Gap BUN Creatinine Est GFR ( Amer) Est GFR (Non-Af Amer) Glucose Lactic Acid Calcium Total Bilirubin AST ALT Alkaline Phosphatase Total Protein Albumin Urine Color Cancelled Urine Appearance Cancelled Urine pH Cancelled Ur Specific [place] Cancelled Urine Protein Cancelled Urine Glucose (UA) Cancelled Urine Ketones Cancelled Urine Blood Cancelled Urine Nitrite Cancelled Ur Leukocyte Esterase Cancelled Urine WBC (Auto) Cancelled Urine RBC (Auto) Cancelled 04/27/19 18:45 WBC RBC Hgb Hct MCV MCH MCHC RDW Plt Count Seg Neutrophils % Lymphocytes % Monocytes % Eosinophils % Basophils % Absolute Neutrophils Absolute Lymphocytes Absolute Monocytes Absolute Eosinophils Absolute Basophils Carbonic Acid 1.65 H HCO3/H2CO3 Ratio 17:1 ABG pH 7.34 L ABG pCO2 54.8 H ABG pO2 85.3 ABG HCO3 29.0 H ABG O2 Saturation 95.7 ABG Base Excess 2.3 VBG pH VBG pCO2 VBG HCO3 VBG Base Excess FiO2 50% Sodium Potassium Chloride Carbon Dioxide Anion Gap BUN Creatinine Est GFR ( Amer) Est GFR (Non-Af Amer) Glucose Lactic Acid Calcium Total Bilirubin AST ALT Alkaline Phosphatase Total Protein Albumin Urine Color Urine Appearance Urine pH Ur Specific [place] Urine Protein Urine Glucose (UA) Urine Ketones Urine Blood Urine Nitrite Ur Leukocyte Esterase Urine WBC (Auto) Urine RBC (Auto) 04/27/19 11:34 NT-Pro-B Natriuret Pep 8790 H Impressions: Head CT 04/27/19 00:00 IMPRESSION: NORMAL BRAIN CT WITHOUT CONTRAST. EVIDENCE OF ACUTE STROKE: NO. Chest X-Ray 04/27/19 11:25 IMPRESSION: NO ACUTE RADIOGRAPHIC FINDING IN THE CHEST. Low lung volumes Assessment and Plan - Diagnosis (1) Acute respiratory failure with hypoxia and hypercapnia Is this a current diagnosis for this admission?: Yes Plan: Unclear etiology. Patient does have a history of CHF and COPD. She is noted to have slight wheezing but no rhonchi on exam. Patient actually appears to be volume depleted at this time. Chest x-ray is benign. proBNP is elevated though decreased from previous labs. ABG 3 hours after application of BiPAP shows slight improvement. She does continue to have respiratory acidosis with hypercapnia. PCO2 is decreased from 62 to 54. The patient is [place] [facility] cardiac [place]. She is provided supplemental oxygen and BiPAP as needed. Have discussed with the patient's only child (Troy Toledo); patient is DNR/DNI. Would not desire intubation if her mother does not respond to BiPAP. Will start Solu-Medrol as the patient is noted to have wheezing. and started scheduled and as needed nebulizer treatments. We will repeat ABG in the morning. Consider CTA of the chest, although the patient is chronically anticoagulated on Eliquis. (2) Altered mental status Qualifiers: Altered mental status type: unspecified Qualified Code(s): R41.82 - Altered mental status, unspecified Is this a current diagnosis for this admission?: Yes Plan: Unclear etiology; certainly worsened by her hypercapnia. Patient's daughter denies that the patient had any symptoms to suggest infectious source. Chest x-ray is clear. Urinalysis is pending. No skin breakdown. Stoma appears well; semi-formed stool present. Blood and urine cultures pending. Head CT is negative. We will support respiratory status as described above. Supportive care. Gentle IV fluids. Fall precautions. (3) SIRS (systemic inflammatory response syndrome) Is this a current diagnosis for this admission?: Yes Plan: Patient presented with tachycardia (HR 127), with paO2 68.3, and WBC of 12.8. Chest x-ray is benign. Urinalysis pending. Urine and blood cultures pending. We will continue to monitor for evidence of infectious process. No clear indication for antibiotic therapy at this time. (4) Atrial fibrillation Is this a current diagnosis for this admission?: Yes Plan: Patient is currently in atrial fibrillation with tachycardia; has improved with IV fluids. Do not believe that she is in atrial fibrillation with RVR requiring diltiazem drip at this time. However, we will continue to monitor closely on continuous cardiac telemetry. Once patient is tolerating p.o., will resume her outpatient medication regiment. If the patient continues to remain obtunded, will need to discuss with the patient's daughter in the morning options for IV anticoagulant and rate/rhythm control. (5) Diabetes Qualifiers: Diabetes mellitus type: type 2 Chronic kidney disease stage: stage 3 ( moderate) Is this a current diagnosis for this admission?: Yes Plan: Currently n.p.o. secondary to altered mental status. We will monitor Accu-Cheks every 6 hours. Hypoglycemia protocol and sliding scale insulin in place. - Time Time Spent with patient: 35 or more minutes Medications reviewed and adjusted accordingly: Yes - Inpatient Certification Based on my medical assessment, after consideration of the patient's comorbidities, presenting symptoms, or acuity I expect that the services needed warrant INPATIENT care.: Yes I certify that my determination is in accordance with my understanding of Medicare's requirements for reasonable and necessary INPATIENT services [42 CFR 412.3e].: Yes Medical Necessity: Significant Comorbidiites Make Outpatient Treatment Too Risky, Need Close Monitoring Due to Risk of Patient Decompensation, Need For IV Fluids, Need For Continuous Telemetry Monitoring
[2019-04-27] MEDS: IPRATROPIUM/ALBUTEROL 0.5-2.5 MG/3 ML AMPUL NEB SCH (20:19)
[2019-04-28] MEDS: CARVEDILOL 12.5 MG TABLET PO SCH ×3 (00:05→23:45)
[2019-04-28] MEDS: METHYLPREDNISOLONE INJ 40 MG/1 ML SDV IV SCH ×4 (00:08→23:54)
[2019-04-28] MEDS: HEPARIN SOD (PORCINE) 5,000 UNIT/ML 1 ML SYRINGE SUBCUT SCH ×3 (00:11→13:29)
[2019-04-28] MEDS: INSULIN LISPRO 100 UNIT/ML 3 ML VIAL SUBCUT SCH ×4 (00:20→18:13)
[2019-04-28] MEDS: IPRATROPIUM/ALBUTEROL 0.5-2.5 MG/3 ML AMPUL NEB SCH ×4 (02:01→19:54)
[2019-04-28 04:46] LABS: ABSOLUTE LYMPHOCYTES (AUTO) 0.6 10^3/uL (0.5-4.7); ABSOLUTE MONOCYTES (AUTO) 0.3 10^3/uL (0.1-1.4); ABSOLUTE NEUT (AUTO) 9.9 10^3/uL (1.7-8.2); BASOPHILS % (AUTO) 0.3 % (0-2); EOSINOPHILS % (AUTO) 0.2 % (0-6); HEMATOCRIT 33.7 % (36.0-47.0); HEMOGLOBIN 10.9 g/dL (12.0-15.5); LYMPHOCYTES % (AUTO) 5.3 % (13-45); MEAN CORPUSCULAR HEMOGLOBIN 31.2 pg (27.0-33.4); MEAN CORPUSCULAR HGB CONC 32.3 g/dL (32.0-36.0); MEAN CORPUSCULAR VOLUME 96 fl (80-97); MONOCYTES % (AUTO) 2.9 % (3-13); PLATELET COUNT 243 10^3/uL (150-450); RED BLOOD COUNT 3.49 10^6/uL (3.72-5.28); RED CELL DISTRIBUTION WIDTH 15.1 % (11.5-14.0); SEGMENTED NEUTROPHILS % (AUTO) 91.3 % (42-78); TOTAL CELLS COUNTED % (AUTO) 100 %; WHITE BLOOD COUNT 10.9 10^3/uL (4.0-10.5)
[2019-04-28 05:09] LABS: ALANINE AMINOTRANSFERASE 18 U/L (9-52); ALBUMIN 2.5 g/dL (3.5-5.0); ALKALINE PHOSPHATASE 110 U/L (38-126); ANION GAP 11 (5-19); ASPARTATE AMINO TRANSFERASE 15 U/L (14-36); BILIRUBIN,DIRECT 0.5 mg/dL (0.0-0.4); BILIRUBIN,TOTAL 0.7 mg/dL (0.2-1.3); BLOOD UREA NITROGEN 28 mg/dL (7-20); CALCIUM 8.1 mg/dL (8.4-10.2); CARBON DIOXIDE 29 mmol/L (22-30); CHLORIDE 98 mmol/L (98-107); GLUCOSE 183 mg/dL (75-110); PHOSPHORUS 4.3 mg/dL (2.5-4.5); POTASSIUM 4.4 mmol/L (3.6-5.0); SODIUM 137.6 mmol/L (137-145); TOTAL PROTEIN 5.3 g/dL (6.3-8.2)
--- NOTE | 2019-04-28 08:11 | PDOC H&P ---
History of Present Illness Admission Date/PCP: 04/27/19 15:23 KAILA GARLAND MD This is a 89 y/o frail, obese, elderly female with significant history of CHF, CKD, HTN, Diabetes, Chronic Atrial fibrillation, COPD with O2 dependence, UTI, CKD, DYSURIA, Rectal CA, hyperlipidemia, anemia, chronic back pain, neuropathy. She presents to the ED from [facility] with altered mental status. Her initial CO2 on VBG was 78.7 with a pH of 7.32. Repeat ABG on 2L/NC pH 7.34, PCO2 62.7, PO2 68.3, HCO3 32.9, Total CO2 34.8, O2 Sat 92.1%. Base excess 5.5. Patient was placed on Bipap in the ED, 40%, I: 12, E: 6, RR 8. Per her daughter she was placed on Buspar 2 days ago, but the low dose isnt the likely cause of h er change in mental status. A WBC was done to evaluate for infectious etiology. Attempts were made to catheterize the bladder for urine but was unsuccessful, so we placed an order to bladder scan to evaluate for urinary retention. Daughter at bedside and report that patient wouldn't want a "bunch" done, but to be comfortable. Patient opened eyes and nodded head "no" when asked if she was doing ok. Patient started to tear up. Patient complains of: AMS History of Present Illness: MICHELLE HAYDEN This is a 89 y/o frail, obese, elderly female with significant history of CHF, CKD, HTN, Diabetes, Chronic Atrial fibrillation, COPD with O2 d ependence, UTI, CKD, DYSURIA, Rectal CA, hyperlipidemia, anemia, chronic back pain, neuropathy. She presented to the ED from [facility] with altered mental status. Per her daughter she was started on a new medication and the medication was verified with the intermediate to be Buspar, and that is the only new medication, but the low dose of 5 mg po [id number] isnt the likely cause of her change in mental status. Initially her CO2 on VBG was 78.7 and pH of 7.32. A Repeat ABG was done on 2L/NC: pH 7.34, PCO2 62.7, PO2 68.3, HCO3 32.9, Total CO2 34.8, O2 Sat 92.1% with a base excess 5.5. Bipap was initiatied in the ED: O2 40%, I:12, E:6, RR 8. A WBC was done to evaluate for infectious etiology. Attempts were made to catheterize the bladder for urine but was unsuccessful, so we placed an order to bladder scan to evaluate for urinary retention. Daughter at bedside and reports that patient wouldn't want a "bunch" done, but to be comfortable. When assessing patient, she opened her eyes and was asked if she was doing ok. She nodded her head "no" and began to tear up. Past Medical History Cardiac Medical History: Reports: Congestive Heart Failure, Coronary Artery Disease, Hyperlipidema, Hypertension - many yrs Denies: Myocardial Infarction Pulmonary Medical History: Reports: Asthma - sob with exertion Denies: Bronchitis, Chronic Obstructive Pulmonary Disease (COPD), Pneumonia, Tuberculosis Neurological Medical History: Denies: Seizures Endocrine Medical History: Reports: Diabetes Mellitus Type 2 - no meds Renal/ Medical History: Reports: Chronic Kidney Disease, Other - dysuria Malignancy Medical History: Reports: Other - rectal ca GI Medical History: Reports: Gastroesophageal Reflux Disease Musculoskeltal Medical History: Reports: Arthritis - legs, Other - chronic back pain, Psychiatric Medical History: Reports: Depression Hematology: Reports: Anemia - in past Past Surgical History Past Surgical History: Reports: Appendectomy, Cardiac Catheterization - x2, Cholecystectomy, Colostomy, Other Denies: Hysterectomy, Pacemaker Social History Smoking Status: Never Smoker Frequency of Alcohol Use: None Hx Recreational Drug Use: No Hx Prescription Drug Abuse: No Family History Family History: Reviewed & Not Pertinent Parental Family History Reviewed: Yes Children Family History Reviewed: Yes Sibling(s) Family History Reviewed.: Unknown Medication/Allergy Home Medications: Atorvastatin Calcium [Lipitor 40 mg Tablet] 40 mg PO DAILY 11/24/16 Isosorbide Mononitrate [Isosorbide Mononitrate ER] 30 mg PO DAILY 11/24/16 Omeprazole 20 mg PO BID 11/24/16 Acetaminophen [Tylenol] 650 mg PO QHS 04/27/19 Apixaban [Eliquis 2.5 mg Tablet] 2.5 mg PO BID 04/27/19 Carvedilol [Coreg 12.5 mg Tablet] 12.5 mg PO Q12 04/27/19 Cranberry Extract [Cranberry 250 mg Tablet] 250 mg PO DAILY 04/27/19 Duloxetine HCl [Cymbalta 30 mg Capsule.dr] 90 mg PO DAILY 04/27/19 Fluticasone Propionate [Flonase Nasal [place] 50 Mcg/[place] 16 gm] 1 spray NAREB DAILY 04/27/19 Furosemide [Lasix 40 mg Tablet] 40 mg PO DAILY 04/27/19 Insulin Glargine,Hum.rec.anlog [Basaglar Kwikpen U-100] 20 unit SQ QHS 04/27/19 Insulin Lispro [Humalog Insulin 100 Unit/1 ml 3 ml Vial] 0 unit SUBCUT .SLD SCALE 04/27/19 Linagliptin [Tradjenta] 5 mg PO DAILY 04/27/19 Oxycodone HCl [Oxy-Ir 5 mg Tablet] 5 mg PO Q12HP PRN 04/27/19 Pregabalin [Lyrica 50 Mg Capsule] 50 mg PO Q12 04/27/19 Allergies/Adverse Reactions: aspirin Allergy (Verified 11/24/16 02:04) dipyridamole [From Persantine] Allergy (Verified 11/24/16 02:04) nalbuphine [From Nubain] Allergy (Verified 11/24/16 02:04) Penicillins Allergy (Verified 11/24/16 02:04) Sulfa (Sulfonamide Antibiotics) Allergy (Verified 11/24/16 02:04) IVC dye Allergy (Uncoded 11/24/16 02:04) Review of Systems ROS unobtainable: Due to mental status Physical Exam Vital Signs: Temp Pulse Resp BP Pulse Ox 98.5 F 114 H 14 119/52 L 97 04/27/19 11:37 04/27/19 11:24 04/27/19 14:10 04/27/19 11:24 04/27/19 14:10 Intake & Output 04/26/19 04/27/19 04/28/19 06:59 06:59 06:59 Weight 88.541 kg General appearance: PRESENT: morbidly obese Head exam: PRESENT: atraumatic Eye exam: PRESENT: conjunctiva pink Ear exam: PRESENT: normal external ear exam Mouth exam: PRESENT: dry mucosa Respiratory exam: PRESENT: crackles - left lower lobe, symmetrical Cardiovascular exam: PRESENT: irregular rhythm Pulses: PRESENT: +1 pedal pulses bilateral Vascular exam: PRESENT: pallor GI/Abdominal exam: PRESENT: hypoactive bowel sounds, soft Rectal exam: PRESENT: deferred Extremities exam: PRESENT: +2 edema Musculoskeletal exam: PRESENT: tenderness - to bilateral lower extremities Neurological exam: PRESENT: other - opens eyes to verbal stimuli, but quickly back to sleep Skin exam: PRESENT: dry, pallor Results Laboratory Results: 04/27/19 11:34 04/27/19 11:34 04/27/19 04/27/19 04/27/19 11:34 11:34 11:34 WBC 12.8 H RBC 3.58 L Hgb 11.2 L Hct 34.1 L MCV 95 MCH 31.3 MCHC 32.9 RDW 15.0 H Plt Count 267 Seg Neutrophils % 81.1 H Lymphocytes % 9.0 L Monocytes % 8.3 Eosinophils % 0.8 Basophils % 0.8 Absolute Neutrophils 10.4 H Absolute Lymphocytes 1.2 Absolute Monocytes 1.1 Absolute Eosinophils 0.1 Absolute Basophils 0.1 Carbonic Acid HCO3/H2CO3 Ratio ABG pH ABG pCO2 ABG pO2 ABG HCO3 ABG O2 Saturation ABG Base Excess VBG pH VBG pCO2 VBG HCO3 VBG Base Excess FiO2 Sodium 135.9 L Potassium 4.2 Chloride 92 L Carbon Dioxide 35 H Anion Gap 9 BUN 31 H Creatinine 1.20 Est GFR ( Amer) 51 L Est GFR (Non-Af Amer) 42 L Glucose 170 H Lactic Acid 1.0 Calcium 8.2 L Total Bilirubin 0.8 AST 15 ALT 22 Alkaline Phosphatase 97 Total Protein 5.7 L Albumin 2.7 L Urine Color Urine Appearance Urine pH Ur Specific [place] Urine Protein Urine Glucose (UA) Urine Ketones Urine Blood Urine Nitrite Ur Leukocyte Esterase Urine WBC (Auto) Urine RBC (Auto) 04/27/19 04/27/19 04/27/19 12:29 12:52 13:47 WBC RBC Hgb Hct MCV MCH MCHC RDW Plt Count Seg Neutrophils % Lymphocytes % Monocytes % Eosinophils % Basophils % Absolute Neutrophils Absolute Lymphocytes Absolute Monocytes Absolute Eosinophils Absolute Basophils Carbonic Acid 1.89 H HCO3/H2CO3 Ratio 17:1 ABG pH 7.34 L ABG pCO2 62.7 H ABG pO2 68.3 L ABG HCO3 32.9 H ABG O2 Saturation 92.1 L ABG Base Excess 5.5 VBG pH 7.32 VBG pCO2 78.7 H* VBG HCO3 39.5 H VBG Base Excess 10.5 FiO2 2L Sodium Potassium Chloride Carbon Dioxide Anion Gap BUN Creatinine Est GFR ( Amer) Est GFR (Non-Af Amer) Glucose Lactic Acid Calcium Total Bilirubin AST ALT Alkaline Phosphatase Total Protein Albumin Urine Color Cancelled Urine Appearance Cancelled Urine pH Cancelled Ur Specific [place] Cancelled Urine Protein Cancelled Urine Glucose (UA) Cancelled Urine Ketones Cancelled Urine Blood Cancelled Urine Nitrite Cancelled Ur Leukocyte Esterase Cancelled Urine WBC (Auto) Cancelled Urine RBC (Auto) Cancelled Impressions: Chest X-Ray 04/27/19 11:25 IMPRESSION: NO ACUTE RADIOGRAPHIC FINDING IN THE CHEST. Low lung volumes Assessment and Plan - Diagnosis (1) Lethargy Is this a current diagnosis for this admission?: Yes Plan: Patient presented to the ED with AMS and hypercarbia, due to the initial VBG PCO2 was 78.7, and a repeat ABG was done with a pH of 7.34 and PCO2 of 62.7 with a PO2 of 68.3, HCO3 of 32.9 with a sat of 92.1%. She was placed on Bipap at 40%, I:12, E:6, and RR of 8. Likely the hypercarbia is contributing to the AMS or AMS is contributing to the hypercarbia. We ordered a CT of the head without contrast to evaluate for masses, lesions, or stroke. Not likely a stroke as patient is responding to verbal stimuli and nods head to simple "yes, no" questions. Her initial WBC was 12.8. Ordered blood cultures and urine culture to evaluate for infectious etiology. (2) Hypercarbia Is this a current diagnosis for this admission?: Yes Plan: Patient presented to the ED with AMS and hypercarbia, her initial VBG PCO2 was 78.7, and a repeat ABG was done with a pH of 7.34 and PCO2 of 62.7 with a PO2 of 68.3, HCO3 of 32.9 with a sat of 92.1%. She was placed on Bipap at 40%, I:12, E:6, and RR of 8. Likely the hypercarbia is contributing to the AMS as the patient opened her eyes and nodded her head to verbal stimuli and questions after Bipap initiated. Will repeat ABG STAT. (3) Dysuria Is this a current diagnosis for this admission?: Yes Plan: Staff attempted to catheterized patient for urine, but unable to obtain sufficient urine for urinalysis or culture. Requested bladder scan to evaluate for urinary retention. Concern that patient may be dehydrated and this could be cause of no urine. Patient received liter bolus of 0.9NS in the ED, will give second liter of 0.9NS followed by 0.9NS at 75 ml's/hr. (4) SIRS (systemic inflammatory response syndrome) Is this a current diagnosis for this admission?: Yes Plan: Patient is tachycardic initial rate of 127, with a PO2 on ABG of 68.3, a WBC of 12.8, and oliguria. We ordered blood cultures and urine culture to evaluate for infectious etiology. (5) Chronic atrial fibrillation Is this a current diagnosis for this admission?: Yes Plan: Patient presented to the ED in atrial fibrillation with a ventricular rate of 127, this is likely due to hypercarbia and dehydration as patient is oliguric. She received an initial 1000 ml's of 0.9NS bolus, with a repeat bolus ordered to follow the bolus 0.9NS at a rate of 75 ml's/hr. Will closely monitor I&O's to evaluate fluid volume balance. (6) Hypertension Qualifiers: Hypertension type: essential hypertension Qualified Code(s): I10 - Essential (primary) hypertension Is this a current diagnosis for this admission?: Yes Plan: History of HTN, initial BP 119/52, will monitor current home medications and adjust as necessary. (7) Diabetes Qualifiers: Diabetes mellitus type: type 2 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 Is this a current diagnosis for this admission?: Yes
[2019-04-28 09:07] LABS: APPEARANCE,URINE CLOUDY; BILIRUBIN,URINE NEGATIVE (NEGATIVE); COLOR,URINE AMBER; GLUCOSE, URINE NEGATIVE (NEGATIVE); KETONES,URINE TRACE mg/dL (NEGATIVE); LEUKOCYTE ESTERASE,URINE MODERATE (NEGATIVE); NITRITE,URINE POSITIVE (NEGATIVE); PROTEIN,URINE 100 mg/dL (NEGATIVE); URIC ACID CRYSTALS,URINE FEW /HPF; URINE SPECIFIC GRAVITY 1.018; UROBILINOGEN,URINE NEGATIVE mg/dL (<2.0)
[2019-04-28] MEDS: PANTOPRAZOLE SODIUM 40 MG VIAL IV SCH (09:47)
[2019-04-28] MEDS: ATORVASTATIN CALCIUM 40 MG TABLET PO SCH (09:48)
[2019-04-28] MEDS: APIXABAN 2.5 MG TABLET PO SCH ×2 (09:49→18:12)
[2019-04-28] MEDS: ISOSORBIDE MONONITRATE 30 MG TAB.ER.24H PO SCH (09:49)
[2019-04-28] MEDS: DULOXETINE HCL 30 MG CAPSULE.DR PO SCH (09:49)
[2019-04-28] MEDS: FLUTICASONE NASAL SPRAY 50 MCG/SPRY 120 SPRAY/16 GM NAREB SCH (09:51)
[2019-04-28] MEDS: NORMAL SALINE 1000 ML 1,000 ML IV PRN (18:12)
[2019-04-28] MEDS ORDERED: DILTIAZEM HCL INJ 25 MG/5 ML VIAL IV ONE (18:45)
[2019-04-28] MEDS: OXYCODONE HCL IR 5 MG TABLET PO PRN (18:58)
--- NOTE | 2019-04-28 19:24 | PDOC PROGRESS REPORT ---
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 Patient was seen on morning rounds with her daughter present. She is found resting in bed comfortably on supplemental oxygen by nasal cannula. She is home O2 dependent. Patient was sleeping lately but woke easily when I said her name. She smiled did respond to a couple of questions, though difficult to tell if she was fully oriented as she then drifted off to sleep and would reawoke answered the questions differently. The patient's daughter reports that she has not had any complaints this morning and does appear to be much improved as compared to yesterday. ROS is limited secondary to mental status change. Patient's daughter has no questions or concerns at this time. No concerns per nursing. Reason For Visit: A/C RESP FAILURE,AMS,SIRS Physical Exam Vital Signs: Temp Pulse Resp BP Pulse Ox 97.4 F 47 L 20 100/76 95 04/28/19 15:45 04/28/19 15:45 04/28/19 15:45 04/28/19 15:45 04/28/19 15:45 Intake & Output 04/27/19 04/28/19 04/29/19 06:59 06:59 06:59 Intake Total 2000 420 Output Total 450 Balance 1999 - Weight 88.541 kg General appearance: PRESENT: no acute distress, morbidly obese, well-developed, well-nourished Head exam: PRESENT: atraumatic, normocephalic Eye exam: PRESENT: conjunctiva pink, EOMI, PERRLA. ABSENT: scleral icterus Ear exam: PRESENT: normal external ear exam Mouth exam: PRESENT: moist, tongue midline Neck exam: ABSENT: carotid bruit, JVD, lymphadenopathy, thyromegaly Respiratory exam: PRESENT: clear to auscultation wie, symmetrical, unlabored, other - Supplemental oxygen via nasal cannula. ABSENT: rales, rhonchi, wheezes Cardiovascular exam: PRESENT: irregular rhythm - A. fib, +S1, +S2, tachycardia. ABSENT: diastolic murmur, rubs, systolic murmur Pulses: PRESENT: normal dorsalis pedis pul Vascular exam: PRESENT: normal capillary refill GI/Abdominal exam: PRESENT: normal bowel sounds, soft. ABSENT: distended, guarding, mass, organolmegaly, rebound, tenderness Rectal exam: PRESENT: deferred Gentrourinary exam: PRESENT: indwelling catheter Extremities exam: ABSENT: calf tenderness, clubbing, pedal edema Neurological exam: PRESENT: oriented to person, CN II-XII grossly intact, other - arousable; lethargic. Improved from yesterday. ABSENT: motor sensory deficit Psychiatric exam: PRESENT: appropriate affect, normal mood. ABSENT: homicidal ideation, suicidal ideation Skin exam: PRESENT: dry, intact, warm. ABSENT: cyanosis, rash Results Laboratory Results: 04/28/19 04:35 04/28/19 04:35 04/28/19 04/28/19 04/28/19 04:35 04:35 08:36 WBC 10.9 H RBC 3.49 L Hgb 10.9 L Hct 33.7 L MCV 96 MCH 31.2 MCHC 32.3 RDW 15.1 H Plt Count 243 Seg Neutrophils % 91.3 H Lymphocytes % 5.3 L Monocytes % 2.9 L Eosinophils % 0.2 Basophils % 0.3 Absolute Neutrophils 9.9 H Absolute Lymphocytes 0.6 Absolute Monocytes 0.3 Absolute Eosinophils 0.0 Absolute Basophils 0.0 Sodium 137.6 Potassium 4.4 Chloride 98 Carbon Dioxide 29 Anion Gap 11 BUN 28 H Creatinine 0.96 Est GFR ( Amer) > 60 Est GFR (Non-Af Amer) 55 L Glucose 183 H Calcium 8.1 L Phosphorus 4.3 Magnesium 1.6 Total Bilirubin 0.7 AST 15 ALT 18 Alkaline Phosphatase 110 Total Protein 5.3 L Albumin 2.5 L Urine Color SHREE Urine Appearance CLOUDY Urine pH 5.0 Ur Specific [place] 1.018 Urine Protein 100 H Urine Glucose (UA) NEGATIVE Urine Ketones TRACE H Urine Blood SMALL H Urine Nitrite POSITIVE H Ur Leukocyte Esterase MODERATE H Urine WBC (Auto) 93 Urine RBC (Auto) 4 04/27/19 11:34 NT-Pro-B Natriuret Pep 8790 H Impressions: Head CT 04/27/19 00:00 IMPRESSION: NORMAL BRAIN CT WITHOUT CONTRAST. EVIDENCE OF ACUTE STROKE: NO. Chest X-Ray 04/27/19 11:25 IMPRESSION: NO ACUTE RADIOGRAPHIC FINDING IN THE CHEST. Low lung volumes Assessment and Plan - Diagnosis (1) Acute respiratory failure with hypoxia and hypercapnia Is this a current diagnosis for this admission?: Yes Plan: Unclear etiology. Patient does have a history of CHF and COPD. Chest x-ray is benign. proBNP is elevated though decreased from previous labs. ABG 3 hours after application of BiPAP shows slight improvement. She does continue to have respiratory acidosis with hypercapnia. PCO2 is decreased from 62 to 54. The patient is admitted to [facility] on continuous cardiac telemetry. She is provided supplemental oxygen and BiPAP as needed. Have discussed with the patient's only child (Tory Toledo); patient is DNR/DNI. Would not desire intubation if her mother does not respond to BiPAP. Continue Solu-Medrol as the patient is noted to have wheezing. Continue scheduled and as needed nebulizer treatments. (2) Altered mental status Qualifiers: Altered mental status type: unspecified Qualified Code(s): R41.82 - Altered mental status, unspecified Is this a current diagnosis for this admission?: Yes Plan: Improved; now arousable and does respond to questions though orientation is unclear. Unclear etiology; certainly worsened by her hypercapnia, possibly related to dehydration and UTI. Patient's daughter denies that the patient had any symptoms to suggest infectious source. Chest x-ray is clear. Urinalysis positive for UTI No skin breakdown. Stoma appears well; semi-formed stool present. Blood cultures have no growth at 24 hours. Urine culture shows gram-negative rods. Head CT is negative. We will support respiratory status as described above. Supportive care. Gentle IV fluids. Fall precautions. (3) SIRS (systemic inflammatory response syndrome) Is this a current diagnosis for this admission?: Yes Plan: Patient is tachycardic initial rate of 127, with a PO2 on ABG of 68.3, a WBC of 12.8, and oliguria. We ordered blood cultures and urine culture to evaluate for infectious etiology. Urinalysis and urine cultures suggest UTI, therefore meets for sepsis criteria. On rounds this am patient was found to be off the Bipap and on nasal cannula saturating at 97%. She is alert and oriented and states that she is feeling much better. Her WBC is within normal limits, she is afebrile and her sats are 97%. (4) Atrial fibrillation Is this a current diagnosis for this admission?: Yes Plan: Patient is currently in atrial fibrillation with tachycardia; has improved with IV fluids. Did receive a one-time IV diltiazem push today Continue to monitor closely on continuous cardiac telemetry. Now tolerating p.o.; I resumed her outpatient regiment of carvedilol and Xare lto. (5) Diabetes Qualifiers: Diabetes mellitus type: type 2 Chronic kidney disease stage: stage 3 (moderate) Is this a current diagnosis for this admission?: Yes Plan: Admits to consistent carb diet. Accu-Cheks before meals and at bedtime Hypoglycemia protocol and sliding scale insulin in place. (6) UTI (urinary tract infection) Qualifiers: Urinary tract infection type: acute cystitis Hematuria presence: with hematuria Qualified Code(s): N30.01 - Acute cystitis with hematuria Is this a current diagnosis for this admission?: Yes Plan: Urinalysis suggestive of UTI. Urine culture shows gram-negative rods. Blood cultures are pending. Review of previous urine culture results show Klebsiella ESBL, E. coli ESBL both with multiple drug resistances. Discussed with clinical pharmacist today. We will start IV meropenem based on previous urine culture results. We will ask infectious disease to provide guidance as the patient is afebrile with normal WBCs. Due to her mental status she is unable to confirm symptoms. - Time Time Spent with patient: 35 or more minutes Medications reviewed and adjusted accordingly: Yes Anticipated discharge: SNF
[2019-04-28] MEDS: MEROPENEM 1 GM in NORMAL SALINE 50 ML IV SCH (23:54)
[2019-04-29] MEDS: INSULIN LISPRO 100 UNIT/ML 3 ML VIAL SUBCUT SCH ×4 (00:26→16:59)
[2019-04-29] MEDS: IPRATROPIUM/ALBUTEROL 0.5-2.5 MG/3 ML AMPUL NEB SCH ×4 (01:39→23:30)
[2019-04-29] MEDS: METHYLPREDNISOLONE INJ 40 MG/1 ML SDV IV SCH ×3 (05:51→22:54)
--- NOTE | 2019-04-29 07:43 | PDOC PROGRESS REPORT ---
Subjective Progress Note for:: 04/28/19 Subjective:: Acute respiratory failure, improved. Reason For Visit: A/C RESP FAILURE,AMS,SIRS Physical Exam Vital Signs: Temp Pulse Resp BP Pulse Ox 98.4 F 96 16 94/48 L 98 04/28/19 06:01 04/28/19 08:59 04/28/19 08:59 04/28/19 08:01 04/28/19 08:59 Intake & Output 04/27/19 04/28/19 04/29/19 06:59 06:59 06:59 Intake Total 1999 Balance 1999 Weight 88.541 kg General appearance: PRESENT: no acute distress, cooperative, morbidly obese, well-developed Head exam: PRESENT: atraumatic Eye exam: PRESENT: periorbital swelling Ear exam: PRESENT: normal external ear exam Mouth exam: PRESENT: dry mucosa Respiratory exam: PRESENT: clear to auscultation wei, decreased breath sounds, symmetrical Cardiovascular exam: PRESENT: irregular rhythm, +S1, +S2 Pulses: PRESENT: +1 pedal pulses bilateral Vascular exam: PRESENT: pallor GI/Abdominal exam: PRESENT: normal bowel sounds, soft Rectal exam: PRESENT: deferred Extremities exam: PRESENT: +2 edema Neurological exam: PRESENT: alert, oriented to person, oriented to place, o riented to situation Psychiatric exam: PRESENT: flat affect Skin exam: PRESENT: dry, pallor Results Laboratory Results: 04/28/19 04:35 04/28/19 04:35 04/27/19 04/27/19 04/27/19 11:34 11:34 11:34 WBC 12.8 H RBC 3.58 L Hgb 11.2 L Hct 34.1 L MCV 95 MCH 31.3 MCHC 32.9 RDW 15.0 H Plt Count 267 Seg Neutrophils % 81.1 H Lymphocytes % 9.0 L Monocytes % 8.3 Eosinophils % 0.8 Basophils % 0.8 Absolute Neutrophils 10.4 H Absolute Lymphocytes 1.2 Absolute Monocytes 1.1 Absolute Eosinophils 0.1 Absolute Basophils 0.1 Carbonic Acid HCO3/H2CO3 Ratio ABG pH ABG pCO2 ABG pO2 ABG HCO3 ABG O2 Saturation ABG Base Excess VBG pH VBG pCO2 VBG HCO3 VBG Base Excess FiO2 Sodium 135.9 L Potassium 4.2 Chloride 92 L Carbon Dioxide 35 H Anion Gap 9 BUN 31 H Creatinine 1.20 Est GFR ( Amer) 51 L Est GFR (Non-Af Amer) 42 L Glucose 170 H Lactic Acid 1.0 Calcium 8.2 L Phosphorus Magnesium Total Bilirubin 0.8 AST 15 ALT 22 Alkaline Phosphatase 97 Total Protein 5.7 L Albumin 2.7 L Urine Color Urine Appearance Urine pH Ur Specific [place] Urine Protein Urine Glucose (UA) Urine Ketones Urine Blood Urine Nitrite Ur Leukocyte Esterase Urine WBC (Auto) Urine RBC (Auto) 04/27/19 04/27/19 04/27/19 12:29 12:52 13:47 WBC RBC Hgb Hct MCV MCH MCHC RDW Plt Count Seg Neutrophils % Lymphocytes % Monocytes % Eosinophils % Basophils % Absolute Neutrophils Absolute Lymphocytes Absolute Monocytes Absolute Eosinophils Absolute Basophils Carbonic Acid 1.89 H HCO3/H2CO3 Ratio 17:1 ABG pH 7.34 L ABG pCO2 62.7 H ABG pO2 68.3 L ABG HCO3 32.9 H ABG O2 Saturation 92.1 L ABG Base Excess 5.5 VBG pH 7.32 VBG pCO2 78.7 H* VBG HCO3 39.5 H VBG Base Excess 10.5 FiO2 2L Sodium Potassium Chloride Carbon Dioxide Anion Gap BUN Creatinine Est GFR ( Amer) Est GFR (Non-Af Amer) Glucose Lactic Acid Calcium Phosphorus Magnesium Total Bilirubin AST ALT Alkaline Phosphatase Total Protein Albumin Urine Color Cancelled Urine Appearance Cancelled Urine pH Cancelled Ur Specific [place] Cancelled Urine Protein Cancelled Urine Glucose (UA) Cancelled Urine Ketones Cancelled Urine Blood Cancelled Urine Nitrite Cancelled Ur Leukocyte Esterase Cancelled Urine WBC (Auto) Cancelled Urine RBC (Auto) Cancelled 04/27/19 04/28/19 04/28/19 18:45 04:35 04:35 WBC 10.9 H RBC 3.49 L Hgb 10.9 L Hct 33.7 L MCV 96 MCH 31.2 MCHC 32.3 RDW 15.1 H Plt Count 243 Seg Neutrophils % 91.3 H Lymphocytes % 5.3 L Monocytes % 2.9 L Eosinophils % 0.2 Basophils % 0.3 Absolute Neutrophils 9.9 H Absolute Lymphocytes 0.6 Absolute Monocytes 0.3 Absolute Eosinophils 0.0 Absolute Basophils 0.0 Carbonic Acid 1.65 H HCO3/H2CO3 Ratio 17:1 ABG pH 7.34 L ABG pCO2 54.8 H ABG pO2 85.3 ABG HCO3 29.0 H ABG O2 Saturation 95.7 ABG Base Excess 2.3 VBG pH VBG pCO2 VBG HCO3 VBG Base Excess FiO2 50% Sodium 137.6 Potassium 4.4 Chloride 98 Carbon Dioxide 29 Anion Gap 11 BUN 28 H Creatinine 0.96 Est GFR ( Amer) > 60 Est GFR (Non-Af Amer) 55 L Glucose 183 H Lactic Acid Calcium 8.1 L Phosphorus 4.3 Magnesium 1.6 Total Bilirubin 0.7 AST 15 ALT 18 Alkaline Phosphatase 110 Total Protein 5.3 L Albumin 2.5 L Urine Color Urine Appearance Urine pH Ur Specific [place] Urine Protein Urine Glucose (UA) Urine Ketones Urine Blood Urine Nitrite Ur Leukocyte Esterase Urine WBC (Auto) Urine RBC (Auto) 04/28/19 08:36 WBC RBC Hgb Hct MCV MCH MCHC RDW Plt Count Seg Neutrophils % Lymphocytes % Monocytes % Eosinophils % Basophils % Absolute Neutrophils Absolute Lymphocytes Absolute Monocytes Absolute Eosinophils Absolute Basophils Carbonic Acid HCO3/H2CO3 Ratio ABG pH ABG pCO2 ABG pO2 ABG HCO3 ABG O2 Saturation ABG Base Excess VBG pH VBG pCO2 VBG HCO3 VBG Base Excess FiO2 Sodium Potassium Chloride Carbon Dioxide Anion Gap BUN Creatinine Est GFR ( Amer) Est GFR (Non-Af Amer) Glucose Lactic Acid Calcium Phosphorus Magnesium Total Bilirubin AST ALT Alkaline Phosphatase Total Protein Albumin Urine Color SHREE Urine Appearance CLOUDY Urine pH 5.0 Ur Specific [place] 1.018 Urine Protein 100 H Urine Glucose (UA) NEGATIVE Urine Ketones TRACE H Urine Blood SMALL H Urine Nitrite POSITIVE H Ur Leukocyte Esterase MODERATE H Urine WBC (Auto) 93 Urine RBC (Auto) 4 04/27/19 11:34 NT-Pro-B Natriuret Pep 8790 H Impressions: Head CT 04/27/19 00:00 IMPRESSION: NORMAL BRAIN CT WITHOUT CONTRAST. EVIDENCE OF ACUTE STROKE: NO. Chest X-Ray 04/27/19 11:25 IMPRESSION: NO ACUTE RADIOGRAPHIC FINDING IN THE CHEST. Low lung volumes Status: Imported from PACS Assessment and Plan - Diagnosis (1) Hypercarbia Is this a current diagnosis for this admission?: Yes Plan: Patient presented to the ED with AMS and hypercarbia, her initial VBG PCO2 was 78.7, and a repeat ABG was done with a pH of 7.34 and PCO2 of 62.7 with a PO2 of 68.3, HCO3 of 32.9 with a sat of 92.1%. She was placed on Bipap at 40%, I:12, E:6, and RR of 8. Likely the hypercarbia is contributing to the AMS as the patient opened her eyes and nodded her head to verbal stimuli and questions after Bipap initiated. Will repeat ABG STAT. In to see patient this am on rounds, her hypercarbia is resolving, will continue with prednisone and breathing txs for exacerbation of COPD. This am patient awake, alert and oriented and off Bipap. She is tolerating well. Denies chest pain, cough, nausea or vomiting. Reports that she is feeling much better. (2) Lethargy Is this a current diagnosis for this admission?: Yes Plan: Patient presented to the ED with AMS and hypercarbia, due to the initial VBG PCO2 was 78.7, and a repeat ABG was done with a pH of 7.34 and PCO2 of 62.7 with a PO2 of 68.3, HCO3 of 32.9 with a sat of 92.1%. She was placed on Bipap at 40%, I:12, E:6, and RR of 8. Likely the hypercarbia is contributing to the AMS or AMS is contributing to the hypercarbia. We ordered a CT of the head without contrast to evaluate for masses, lesions, or stroke. Not likely a stroke as patient is responding to verbal stimuli and nods head to simple "yes, no" questions. Her initial WBC was 12.8. Ordered blood cultures and urine culture to evaluate for infectious etiology. On rounds this morning patient was awake, alert, and oriented to self, place and family member. She is off BiPap at this time and on nasal cannula and tolerating well. She responds appropriately to verbal communication. Continue to monitor and use Bipap as needed. (3) Dysuria Is this a current diagnosis for this admission?: Yes Plan: Parry catheter in place, draining dark yellow urine. Accurate I&O's to evaluate fluid volume status. Preliminary culture shows gram negative rods, likely ESBL with history of this in the past UTI. will monitor for final culture results to make sure coverage is adequate. (4) SIRS (systemic inflammatory response syndrome) Is this a current diagnosis for this admission?: Yes Plan: Patient is tachycardic initial rate of 127, with a PO2 on ABG of 68.3, a WBC of 12.8, and oliguria. We ordered blood cultures and urine culture to evaluate for infectious etiology. On rounds this am patient was found to be off the Bipap and on nasal cannula saturating at 97%. She is alert and oriented and states that she is feeling much better. Her WBC is within normal limits, she is afebrile and her sats are 97%. (5) Chronic atrial fibrillation Is this a current diagnosis for this admission?: Yes Plan: Continue home medications and continue to monitor. (6) Hypertension Qualifiers: Hypertension type: essential hypertension Qualified Code(s): I10 - E ssential (primary) hypertension Is this a current diagnosis for this admission?: Yes Plan: History of HTN, initial BP 119/52, will monitor current home medications and adjust as necessary. In to see patient on rounds, her BP is 95/61 this am. She did received her am dose of isosorbie this am. Her blood pressure will likely improve with continued slow IV fluids as she is continue to be dehydrated. Will continue to monitor I&O's (7) Diabetes Qualifiers: Diabetes mellitus type: type 2 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 Is this a current diagnosis for this admission?: Yes Plan: Continue to monitor blood sugars and treat as indicated. (8) Dehydration Is this a current diagnosis for this admission?: Yes Plan: Patients blood pressures have been labile and ventricular heart rate tachycardic, continue IV fluids. Patient received 2 liters of 0.9NS yesterday while in the ED, now is getting 0.9NS rate of 75ml/hr. Push po fluids. (9) UTI (urinary tract infection), bacterial Is this a current diagnosis for this admission?: Yes Plan: UTI, preliminary culture with gram negative rods. Patient has significant history of different organisms in her urine. Pharmacist consulted for recommendation. Meropenem recommended at this time. ID consulted as well to assist with antibiotic selection. Awaiting susceptibility and organism growth in urine.
[2019-04-29] MEDS: NORMAL SALINE 1000 ML 1,000 ML IV PRN ×2 (09:02→22:59)
[2019-04-29] MEDS ORDERED: ERTAPENEM SODIUM 0.5 GM in NORMAL SALINE 50 ML IV SCH (10:00)
[2019-04-29] MEDS ORDERED: CARVEDILOL 6.25 MG TABLET PO SCH (10:00)
[2019-04-29] MEDS: DILTIAZEM HCL INJ 25 MG/5 ML VIAL IV SCH ×3 (10:07→22:54)
[2019-04-29] MEDS: ATORVASTATIN CALCIUM 40 MG TABLET PO SCH (10:08)
[2019-04-29] MEDS: DULOXETINE HCL 30 MG CAPSULE.DR PO SCH (10:08)
[2019-04-29] MEDS: FLUTICASONE NASAL SPRAY 50 MCG/SPRY 120 SPRAY/16 GM NAREB SCH (10:08)
[2019-04-29] MEDS: MEROPENEM 1 GM in NORMAL SALINE 50 ML IV SCH (10:08)
[2019-04-29] MEDS: APIXABAN 2.5 MG TABLET PO SCH ×2 (10:09→16:59)
[2019-04-29] MEDS: PANTOPRAZOLE SODIUM 40 MG VIAL IV SCH (10:09)
[2019-04-29] MEDS: ISOSORBIDE MONONITRATE 30 MG TAB.ER.24H PO SCH (10:09)
[2019-04-29] MEDS: OXYCODONE HCL IR 5 MG TABLET PO PRN (10:16)
[2019-04-29 11:12] LABS: ARTERIAL BLOOD BASE EXCESS 1.3 mmol/L; ARTERIAL BLOOD H2CO3 1.39 mmol/L (1.05-1.35); ARTERIAL BLOOD O2 SATURATION 95.1 % (94-98); ARTERIAL BLOOD PCO2 46.1 mmHg (35-45); ARTERIAL BLOOD PH 7.39 (7.35-7.45); ARTERIAL BLOOD PO2 76.9 mmHg (80-100); ARTERIAL BLOOD TOTAL CO2 28.4 mmol/L (21-25)
[2019-04-29 11:32] LABS: ARTERIAL BLOOD FIO2 4L
[2019-04-29] MEDS ORDERED: DILTIAZEM HCL 30 MG TABLET PO SCH (14:00)
--- NOTE | 2019-04-29 15:43 | Progress Note ---
Provider Note Provider Note: ID Consult Note Asked to review patient's chart. Pt not seen or examined. Pt is a 89 year old frail obese female [facility] resident with PMH including CHF, CKD, HTN, DM, AF, chronic back pain, neuropathy, and COPD with O2 dependence who was admitted on 04/27/19 with AMS and cough. She started BuSpar for anxiety on 04/23/19, and her family reported seeing she was very drowsy and seemed to be overly medicated when they visted her on 04/24/19. At the time she arrived to the ED she was responsive to noxious stimuli but quite somnolent. She was afebrile and tachycardic. Her exam was notable some rhonchi in the ED and crackles on re- examination. Heart rate was irregular, some hypoactive BS was appreciated, 2+ edema in legs, and dry oral mucosa. ABG showed CO2 retention. Chemistries showed low chloride, increased bicarb. The patient was placed on BiPAP, steroids, breathing treatments then supplemental O2. Ertapenem, then meropenem was also started pending results of cultures. Imaging included CXR that showed no acute radiographic findings to suggest pneumonia. Blood cultures have been negative. Urine culture grew an ESBL E coli (R to Bactrim, fluoroquinolones, gentamicin and tobramycin) and Proteus mirabilis (R to macrobid, tetracycline). Pt has had prior urine cultures that have shown growth of the ESBL E coli and Proteus. Impression/Recommendations The prevalence of asymptomatic bacteriuria increases in the elderly and in patients who live in computer terminal operator care facilities. Distinguishing true UTI from asymptomatic bacteriuria is challenging in this population. Were there any symptoms and/or signs compatible with UTI - flank pain or objective finding of CVA tenderness or pelvic/suprapubic discomfort on palpation? Fever could be present if there is a UTI and was absent here. Altered mental status with no other identified cause could be due to UTI, but the patient also had CO2 retention also found. If she improved rapidly with maneuvers to reduce CO2 retention, this might suggest that the urinary colonization is only that - colonization - and meropenem should be d iscontinued. Otherwise, the options for treatment (if the patient's presentation and course is not able to differentiate between the two possibilities) are limited to completing the remainder of 7 days of treatment (5 more days) with a carbapenem, such as the meropenem the patient is currently receiving, or switching to PO fosfomycin 3 grams every 72h for an additional 2 doses. Harrison Lemon MD [facility] Infectious Diseases pager [phone]
--- NOTE | 2019-04-29 17:29 | PDOC PROGRESS REPORT ---
Subjective Progress Note for:: 04/29/19 Subjective:: MICHELLE HAYDEN is a 89 year old female with a past medical history significant for CHF, atrial fibrillation (anticoagulated on Eliquis, hypertension, hyperlipidemia, CAD, COPD, DM, CKD 3, anemia, GERD, depression and anxiety, and nonambulatory status secondary to neuropathy who was admitted 717 for acute respiratory failure and altered mental status. Patient was seen on morning rounds. She is found resting in bed comfortably on supplemental oxygen by nasal cannula. She is home O2 dependent. The patient is awake, oriented to self and place but not time or situation. She is socially appropriate, however, easily confused and repetitive. ROS is limited secondary to mental status change; she does not consistently answer questions the same (initially states that she feels well, then complains that she has a cold, but then is unable to specify her symptoms). She has no questions or concerns at this time. No concerns per nursing. Reason For Visit: A/C RESP FAILURE,AMS,SIRS Physical Exam Vital Signs: Temp Pulse Resp BP Pulse Ox 97.8 F 119 H 22 H 123/68 91 L 04/29/19 16:00 04/29/19 16:00 04/29/19 16:00 04/29/19 16:00 04/29/19 16:00 Intake & Output 04/28/19 04/29/19 04/30/19 06:59 06:59 06:59 Intake Total 1999 970 1260 Output Total 725 150 Balance 1999 245 1110 Weight 88.541 kg 90.7 kg General appearance: PRESENT: no acute distress, morbidly obese, well-developed, well-nourished Head exam: PRESENT: atraumatic, normocephalic Eye exam: PRESENT: conjunctiva pink, EOMI, PERRLA. ABSENT: scleral icterus Ear exam: PRESENT: normal external ear exam Mouth exam: PRESENT: moist, tongue midline Neck exam: ABSENT: carotid bruit, JVD, lymphadenopathy, thyromegaly Respiratory exam: PRESENT: clear to auscultation wei, symmetrical, unlabored, o ther - Supplemental oxygen by nasal cannula. ABSENT: rales, rhonchi, wheezes Cardiovascular exam: PRESENT: irregular rhythm, +S1, +S2. ABSENT: diastolic murmur, rubs, systolic murmur Pulses: PRESENT: normal dorsalis pedis pul Vascular exam: PRESENT: normal capillary refill GI/Abdominal exam: PRESENT: normal bowel sounds, soft. ABSENT: distended, guarding, mass, organolmegaly, rebound, tenderness Rectal exam: PRESENT: deferred Gentrourinary exam: PRESENT: indwelling catheter Extremities exam: PRESENT: full ROM. ABSENT: calf tenderness, clubbing, pedal edema Musculoskeletal exam: ABSENT: ambulatory - At baseline Neurological exam: PRESENT: alert, awake, oriented to person, oriented to place, CN II-XII grossly intact, other - Socially appropriate, confused, at baseline. ABSENT: oriented to time, oriented to situation, motor sensory deficit Psychiatric exam: PRESENT: appropriate affect, normal mood. ABSENT: homicidal ideation, suicidal ideation Skin exam: PRESENT: dry, intact, warm. ABSENT: cyanosis, rash Results Laboratory Results: 04/28/19 04:35 04/28/19 04:35 04/29/19 10:45 Carbonic Acid 1.39 H HCO3/H2CO3 Ratio 19:1 ABG pH 7.39 ABG pCO2 46.1 H ABG pO2 76.9 L ABG HCO3 27.0 H ABG O2 Saturation 95.1 ABG Base Excess 1.3 FiO2 4L 04/27/19 12:29 Catheterized Urine Urine Culture - Final Escherichia Coli Esbl Proteus Mirabilis 04/27/19 11:34 NT-Pro-B Natriuret Pep 8790 H Impressions: Head CT 04/27/19 00:00 IMPRESSION: NORMAL BRAIN CT WITHOUT CONTRAST. EVIDENCE OF ACUTE STROKE: NO. Chest X-Ray 04/27/19 11:25 IMPRESSION: NO ACUTE RADIOGRAPHIC FINDING IN THE CHEST. Low lung volumes Assessment and Plan - Diagnosis (1) Acute respiratory failure with hypoxia and hypercapnia Is this a current diagnosis for this admission?: Yes Plan: Improved; now on her baseline oxygen requirement. Unclear etiology. Patient does have a history of CHF and COPD. Chest x-ray is benign. proBNP is elevated though decreased from previous labs. Day of admissiojn: ABG 3 hours after application of BiPAP shows slight improvement. She does continue to have respiratory acidosis with hypercapnia. PCO2 is decreased from 62 to 54. Repeat ABG today significantly improved; chronic/compensated hypercapnia The patient is admitted to [facility] on continuous cardiac telemetry. She is provided supplemental oxygen and BiPAP as needed. Have discussed with the patient's only child (Troy Toledo); patient is DNR/DNI. Would not desire intubation if her mother does not respond to BiPAP. Continue Solu-Medrol; have begun weaning Continue scheduled and as needed nebulizer treatments have begun weaning; . (2) Altered mental status Qualifiers: Altered mental status type: unspecified Qualified Code(s): R41.82 - Altered mental status, unspecified Is this a current diagnosis for this admission?: Yes Plan: Resolved; now at baseline. Unclear etiology; certainly worsened by her hypercapnia, possibly related to dehydration and UTI. Chest x-ray is clear. Urinalysis positive for UTI No skin breakdown. Stoma appears well; semi-formed stool present. Blood cultures have no growth at 48 hours. Urine culture shows Proteus Mirabella's and E. coli ESBL. Head CT is negative. We will support respiratory status as described above. Treatment of UTI as below Supportive care. Gentle IV fluids. Fall precautions. (3) UTI (urinary tract infection) Qualifiers: Urinary tract infection type: acute cystitis Hematuria presence: with hematuria Qualified Code(s): N30.01 - Acute cystitis with hematuria Is this a current diagnosis for this admission?: Yes Plan: Urinalysis suggestive of UTI. Urine culture shows Proteus mirabilis and E. coli ESBL. Blood cultures have no growth at 48 hours Patient was initially started on IV meropenem. Received 24 hours of antibiotic therapy. Infectious disease was consulted; it is unclear whether the patient is colonized or with active infection as she is unable to specify whether or not she is having acute symptoms. Will transition to fosfomycin 3 g every 72 hours x2 doses for completion of therapy. Remove Parry catheter today. Bladder scan every 6 hours and straight cath as needed. (4) Atrial fibrillation Is this a current diagnosis for this admission?: Yes Plan: Patient is currently in atrial fibrillation with tachycardia; has improved with IV fluids. Continue to monitor closely on continuous cardiac telemetry. Now tolerating p.o.; I resumed her outpatient Xarelto. She is intermittently refusing her p.o. medications; has not received her scheduled carvedilol or diltiazem. To prevent atrial fibrillation with RVR, she is placed on scheduled diltiazem IV pushes. Hopefully as her mental status continues to improve she will begin taking her p.o. medications consistently. (5) Diabetes Qualifiers: Diabetes mellitus type: type 2 Chronic kidney disease stage: stage 3 (moderate) Is this a current diagnosis for this admission?: Yes Plan: Advance to cardiac/consistent carb diet. Accu-Cheks before meals and at bedtime with Humalog for sliding scale coverage. Hypoglycemia protocol in place. (6) SIRS (systemic inflammatory response syndrome) Is this a current diagnosis for this admission?: Yes Plan: Resolved; patient is afebrile, Leukocytosis trending down, vital signs stable and now at baseline mental status, On admission patient was tachycardic initial rate of 127, with a PO2 on ABG of 68.3, a WBC of 12.8, and oliguria. We ordered blood cultures and urine culture to evaluate for infectious etiology. Urinalysis and urine cultures suggest UTI, therefore meets for sepsis criteria. - Time Time Spent with patient: 25-34 minutes Medications reviewed and adjusted accordingly: Yes Anticipated discharge: SNF - Established resident at [facility] Within: within 24 hours
[2019-04-29] MEDS ORDERED: FOSFOMYCIN TROMETHAMINE 3 GM PACKET PO SCH (18:00)
--- NOTE | 2019-04-29 18:34 | ADVANCED CARE ---
- Diagnosis (1) Acute respiratory failure with hypoxia and hypercapnia Diagnosis Current: Yes (2) Altered mental status Diagnosis Current: Yes (3) SIRS (systemic inflammatory response syndrome) Diagnosis Current: Yes (4) Atrial fibrillation Diagnosis Current: Yes (5) Diabetes Diagnosis Current: Yes (6) UTI (urinary tract infection) Diagnosis Current: Yes Attendance: The patient (obtunded at time of discussion) and the patient's only child, Troy Toledo. Resuscitation Status: Do Not Resuscitate Discussion: Discussed the patient's chronic medical conditions and present health status. Patient was admitted with acute respiratory failure with hypoxia and hypercapnia and decreased mental status. Patient's daughter confirms that the patient is a DNR/DNI and would not desire intubation or aggressive interventions should she worsen further. The daughter is agreeable to trial of BiPAP for correction of hypercapnia; she is aware of aspiration risk due to the patient's decreased mental status. Daughter reports that if the patient does not demonstrate improvement within the next 24 to 48 hours, would consider discussion of hospice services. Care Planning Goals: DNR/DNI Time Spent: 20 min
[2019-04-30] MEDS: INSULIN LISPRO 100 UNIT/ML 3 ML VIAL SUBCUT SCH ×3 (01:10→11:33)
[2019-04-30] MEDS: OXYCODONE HCL IR 5 MG TABLET PO PRN (04:09)
[2019-04-30] MEDS: DILTIAZEM HCL INJ 25 MG/5 ML VIAL IV SCH ×2 (05:34→13:55)
[2019-04-30] MEDS: METHYLPREDNISOLONE INJ 40 MG/1 ML SDV IV SCH ×2 (05:34→13:55)
[2019-04-30 07:25] LABS: HEMATOCRIT 34.5 % (36.0-47.0); HEMOGLOBIN 11.3 g/dL (12.0-15.5); MEAN CORPUSCULAR HEMOGLOBIN 31.3 pg (27.0-33.4); MEAN CORPUSCULAR HGB CONC 32.8 g/dL (32.0-36.0); MEAN CORPUSCULAR VOLUME 95 fl (80-97); PLATELET COUNT 350 10^3/uL (150-450); RED BLOOD COUNT 3.62 10^6/uL (3.72-5.28); WHITE BLOOD COUNT 7.8 10^3/uL (4.0-10.5)
[2019-04-30] MEDS: IPRATROPIUM/ALBUTEROL 0.5-2.5 MG/3 ML AMPUL NEB SCH (07:45)
[2019-04-30 07:47] LABS: ANION GAP 8 (5-19); BLOOD UREA NITROGEN 37 mg/dL (7-20); CALCIUM 8.2 mg/dL (8.4-10.2); CARBON DIOXIDE 29 mmol/L (22-30); CHLORIDE 99 mmol/L (98-107); GLUCOSE 233 mg/dL (75-110); POTASSIUM 4.6 mmol/L (3.6-5.0); SODIUM 135.7 mmol/L (137-145)
--- NOTE | 2019-04-30 10:09 | PDOC TRANSFER SUMMARY ---
General - Admit/Disc Date/PCP Admission Date/Primary Care Provider: 04/27/19 15:23 KAILA GARLAND MD Discharge Date: 04/30/19 - Discharge Diagnosis (1) Acute respiratory failure with hypoxia and hypercapnia Is this a current diagnosis for this admission?: Yes Summary: Resolved. Now on her baseline oxygen requirement. Unclear etiology. Patient does have a history of CHF and COPD. Chest x-ray is benign. proBNP is elevated though decreased from previous labs. Day of admissiojn: ABG 3 hours after application of BiPAP shows slight improvement. She does continue to have respiratory acidosis with hypercapnia. PCO2 is decreased from 62 to 54. Repeat ABG significantly improved; chronic/compensated hypercapnia The patient was admitted to [facility] on continuous cardiac telemetry and supported with supplemental oxygen and BiPAP as needed. She was placed on Solu-medrol with scheduled and as needed nebulizer treatments. Her symptoms rapidly resolved and she is now returned to her baseline status. (2) Altered mental status Is this a current diagnosis for this admission?: Yes Summary: Resolved; now A&Ox4, conversational and socially appropriate. Does have slight confusion at night. Multifactoria; hypercapnia, dehydration, and UTI. Chest x-ray is clear. Urinalysis positive for UTI No skin breakdown. Stoma appears well; semi-formed stool present. Blood cultures have no growth at 48 hours. Urine culture shows Proteus Mirabella's and E. coli ESBL. Head CT is negative. (3) SIRS (systemic inflammatory response syndrome) Is this a current diagnosis for this admission?: Yes Summary: Resolved; patient is afebrile, Leukocytosis trending down, vital signs stable and now at baseline mental status, On admission patient was tachycardic initial rate of 127, with a PO2 on ABG of 68.3, a WBC of 12.8, and oliguria. We ordered blood cultures and urine culture to evaluate for infectious etiology. Urinalysis and urine cultures suggest UTI, therefore meets for sepsis criteria. (4) Atrial fibrillation Is this a current diagnosis for this admission?: Yes Summary: Patient is currently in atrial fibrillation. She did briefly require IV diltiazem for rate control. She is now adequately controlled on her home medication regiment. (5) Diabetes Is this a current diagnosis for this admission?: Yes Summary: Continue Cardiac/consistent carb diet. Resume outpatient medication regiment. (6) UTI (urinary tract infection) Is this a current diagnosis for this admission?: Yes Summary: Urinalysis suggestive of UTI. Urine culture shows Proteus mirabilis and E. coli ESBL. Blood cultures have no growth at 48 hours Patient was initially started on IV meropenem. Received 24 hours of antibiotic therapy. Infectious disease was consulted; it is unclear whether the patient is colonized or with active infection as she is unable to specify whether or not she is having acute symptoms. Have transition to fosfomycin 3 g every 72 hours x2 doses for completion of therapy. Final dose on 05/03/19 - Additional Information Resuscitation Status: Do Not Resuscitate Discharge Diet: Cardiac, Diabetic Discharge Activity: Activity As Tolerated, Balance Activity w/Rest Prescriptions: Fosfomycin Tromethamine [Monurol 3 gm Packet] 3 gm PO ONCE PRN #1 packet PRN Reason: Ipratropium/Albuterol Sulfate [Duoneb 3 ml Ampul] 3 ml NEB RTQ8HP PRN #30 vial.neb PRN Reason: Prednisone [Deltasone 20 mg Tablet] 60 mg PO DAILY #12 tablet Home Medications: Atorvastatin Calcium [Lipitor 40 mg Tablet] 40 mg PO DAILY 11/24/16 Isosorbide Mononitrate [Isosorbide Mononitrate ER] 30 mg PO DAILY 11/24/16 Omeprazole 20 mg PO BID 11/24/16 Acetaminophen [Tylenol] 650 mg PO QHS 04/27/19 Apixaban [Eliquis 2.5 mg Tablet] 2.5 mg PO BID 04/27/19 Carvedilol [Coreg 12.5 mg Tablet] 12.5 mg PO Q12 04/27/19 Cranberry Extract [Cranberry 250 mg Tablet] 250 mg PO DAILY 04/27/19 Duloxetine HCl [Cymbalta 30 mg Capsule.dr] 90 mg PO DAILY 04/27/19 Fluticasone Propionate [Flonase Nasal Cypress 50 Mcg/Cypress 16 gm] 1 spray NAREB DAILY 04/27/19 Furosemide [Lasix 40 mg Tablet] 40 mg PO DAILY 04/27/19 Insulin Glargine,Hum.rec.anlog [Basaglar Kwikpen U-100] 20 unit SQ QHS 04/27/19 Insulin Lispro [Humalog Insulin (Lispro) 100 unit/mL] 0 unit SUBCUT .SLD SCALE 04/27/19 Linagliptin [Tradjenta] 5 mg PO DAILY 04/27/19 Oxycodone HCl [Oxy-Ir 5 mg Tablet] 5 mg PO Q12HP PRN 04/27/19 Pregabalin [Lyrica 50 mg Capsule] 50 mg PO Q12 04/27/19 Acetaminophen [Tylenol 650 mg Supp] 650 mg MI Q4HP PRN supp.rect 04/30/19 Fosfomycin Tromethamine [Monurol 3 gm Packet] 3 gm PO ONCE PRN #1 packet 04/30/19 Ipratropium/Albuterol Sulfate [Duoneb 3 ml Ampul] 3 ml NEB RTQ8HP PRN #30 vial.neb 04/30/19 Prednisone [Deltasone 20 mg Tablet] 60 mg PO DAILY #12 tablet 04/30/19 History of Present Illness Admission Date/PCP: 04/27/19 15:23 KAILA GARLAND MD History of Present Illness: MICHELLE HAYDEN is a 89 year old female with a past medical history significant for CHF, atrial fibrillation (anticoagulated on Eliquis, hypertension, hyperlipidemia, CAD, COPD, DM, CKD 3, anemia, GERD, depression and anxiety, and nonambulatory status secondary to neuropathy who presented to the emergency department from [facility] via EMS for report of altered mental status. Per family member the patient was last known well 4 days ago when she was vi sited for her birthday. At that time the patient was fatigued, but oriented to her baseline and interacting with family members without complaints. The following day the patient was noted to have increased lethargy. Of note she was started on BuSpar twice daily at that time. Per family members the patient has not had fever/chills, cough, complaint of shortness of breath, nausea, vomiting, diarrhea, or urinary tract symptoms. Other than her progressively increased lethargy there have been no objective symptoms. Evaluation in the emergency department revealed tachycardia, hypoxia, acute re spiratory failure with hypoxia and hypercapnia, mild leukocytosis, baseline anemia, mild dehydration, and benign chest x-ray, head CT, and EKG. She is referred to the hospitalist service for admission and management of acute respiratory failure, altered mental status, and SIRS Physical Exam Vital Signs: Temp Pulse Resp BP Pulse Ox 97.6 F 105 H 19 141/86 H 99 04/30/19 08:00 04/30/19 08:00 04/30/19 08:00 04/30/19 08:00 04/30/19 08:00 Intake & Output 04/29/19 04/30/19 05/01/19 06:59 06:59 06:59 Intake Total 970 2600 Output Total 725 150 Balance 245 2450 Weight 90.7 kg 91.2 kg General appearance: PRESENT: no acute distress, cooperative, morbidly obese, well-developed, well-nourished Head exam: PRESENT: atraumatic, normocephalic Eye exam: PRESENT: conjunctiva pink, EOMI, PERRLA. ABSENT: scleral icterus Ear exam: PRESENT: normal external ear exam Mouth exam: PRESENT: moist, tongue midline Neck exam: ABSENT: carotid bruit, JVD, lymphadenopathy, thyromegaly Respiratory exam: PRESENT: clear to auscultation wei, symmetrical, unlabored, other - Baseline supplemental oxygen requirement of 3 L/min. ABSENT: rales, rhonchi, wheezes Cardiovascular exam: PRESENT: irregular rhythm, +S1, +S2. ABSENT: diastolic murmur, rubs, systolic murmur Pulses: PRESENT: normal dorsalis pedis pul Vascular exam: PRESENT: normal capillary refill GI/Abdominal exam: PRESENT: normal bowel sounds, soft. ABSENT: distended, gua rding, mass, organolmegaly, rebound, tenderness Rectal exam: PRESENT: deferred Extremities exam: PRESENT: full ROM. ABSENT: calf tenderness, clubbing, pedal edema Neurological exam: PRESENT: alert, awake, oriented to person, oriented to place, oriented to time, oriented to situation, CN II-XII grossly intact. ABSENT: travon r sensory deficit Psychiatric exam: PRESENT: appropriate affect, normal mood. ABSENT: homicidal ideation, suicidal ideation Skin exam: PRESENT: dry, intact, warm. ABSENT: cyanosis, rash Results Laboratory Results: 04/30/19 07:06 04/30/19 07:06 04/29/19 04/30/19 04/30/19 10:45 07:06 07:06 WBC 7.8 RBC 3.62 L Hgb 11.3 L Hct 34.5 L MCV 95 MCH 31.3 MCHC 32.8 RDW 15.0 H Plt Count 350 Carbonic Acid 1.39 H HCO3/H2CO3 Ratio 19:1 ABG pH 7.39 ABG pCO2 46.1 H ABG pO2 76.9 L ABG HCO3 27.0 H ABG O2 Saturation 95.1 ABG Base Excess 1.3 FiO2 4L Sodium 135.7 L Potassium 4.6 Chloride 99 Carbon Dioxide 29 Anion Gap 8 BUN 37 H Creatinine 0.92 Est GFR ( Amer) > 60 Est GFR (Non-Af Amer) 58 L Glucose 233 H Calcium 8.2 L 04/27/19 12:29 Catheterized Urine Urine Culture - Final Escherichia Coli Esbl Proteus Mirabilis 04/27/19 11:34 NT-Pro-B Natriuret Pep 8790 H Impressions: Head CT 04/27/19 00:00 IMPRESSION: NORMAL BRAIN CT WITHOUT CONTRAST. EVIDENCE OF ACUTE STROKE: NO. Chest X-Ray 04/27/19 11:25 IMPRESSION: NO ACUTE RADIOGRAPHIC FINDING IN THE CHEST. Low lung volumes Transfer Plan - Disposition Transfer Plan: Discharge to [facility] where patient is an established fpc resident. - Time Spent with Patient Time spent with patient: Less than 30 Minutes Qualifiers - * PATIENT BEING DISCHARGED WITH ANY OF THE FOLLOWING DIAGNOSIS: No Acute Heart Failure - Is this a Heart Failure Patient?: No Plan Discharge Plan: Follow up with primary care provider within 1 week. Recommend consideration of decreasing sedating medications. Patient may benefit from overnight sleep study and use of CPAP/BiPAP pending r esults for treatment of sleep apnea and COPD. Complete course of antibiotics for treatment of UTI. Return to the emergency department as needed for concerning symptoms. Time Spent: Greater than 30 Minutes
[2019-04-30] MEDS: APIXABAN 2.5 MG TABLET PO SCH (11:25)
[2019-04-30] MEDS: PANTOPRAZOLE SODIUM 40 MG VIAL IV SCH (11:25)
[2019-04-30] MEDS: ISOSORBIDE MONONITRATE 30 MG TAB.ER.24H PO SCH (11:25)
[2019-04-30] MEDS: ATORVASTATIN CALCIUM 40 MG TABLET PO SCH (11:25)
[2019-04-30] MEDS: DULOXETINE HCL 30 MG CAPSULE.DR PO SCH (11:25)
[2019-04-30] MEDS: FLUTICASONE NASAL SPRAY 50 MCG/SPRY 120 SPRAY/16 GM NAREB SCH (11:32)
[2019-04-30 12:54] VITALS: BP 118/97
== END 2019-04-30 14:50 | DRG 871 ==
LOC: ER 11:23 → EH 15:23 → 3N 04-28 15:48 → 4N 04-29 10:52
PROVIDERS: ADMIT Hospitalist; ATTEND Hospitalist
PROC: 5A09457 Assistance with Respiratory Ventilation, 24-96 Consecutive Hours, Continuous Positive Airway Pressure (ICD-10-PCS; principal; 2019-04-27)
DX: A41.9 Sepsis, unspecified organism (principal); J96.01 Acute respiratory failure with hypoxia; J96.02 Acute respiratory failure with hypercapnia; I13.0 Hypertensive heart and chronic kidney disease with heart failure and stage 1 through stage 4 chronic kidney disease, or unspecified chronic kidney disease; I50.32 Chronic diastolic (congestive) heart failure; N30.01 Acute cystitis with hematuria; E86.0 Dehydration; B96.4 Proteus (mirabilis) (morganii) as the cause of diseases classified elsewhere; B96.20 Unspecified Escherichia coli [E. coli] as the cause of diseases classified elsewhere; I48.91 Unspecified atrial fibrillation; Z66 Do not resuscitate; E78.5 Hyperlipidemia, unspecified; I25.10 Atherosclerotic heart disease of native coronary artery without angina pectoris; J44.9 Chronic obstructive pulmonary disease, unspecified; E11.22 Type 2 diabetes mellitus with diabetic chronic kidney disease; N18.3 Chronic kidney disease, stage 3 (moderate); D63.1 Anemia in chronic kidney disease; K21.9 Gastro-esophageal reflux disease without esophagitis; F32.9 Major depressive disorder, single episode, unspecified; E11.40 Type 2 diabetes mellitus with diabetic neuropathy, unspecified; E66.01 Morbid (severe) obesity due to excess calories; E78.00 Pure hypercholesterolemia, unspecified; F41.1 Generalized anxiety disorder; Z16.342 Resistance to multiple antimycobacterial drugs; Z79.899 Other long term (current) drug therapy; Z79.01 Long term (current) use of anticoagulants; Z79.4 Long term (current) use of insulin; Z79.891 Long term (current) use of opiate analgesic; Z79.1 Long term (current) use of non-steroidal anti-inflammatories (NSAID); Z86.14 Personal history of Methicillin resistant Staphylococcus aureus infection; Z88.0 Allergy status to penicillin; Z88.2 Allergy status to sulfonamides; Z88.8 Allergy status to other drugs, medicaments and biological substances; Z88.6 Allergy status to analgesic agent; Z91.041 Radiographic dye allergy status; Z90.49 Acquired absence of other specified parts of digestive tract; Z99.81 Dependence on supplemental oxygen
CPT/HCPCS: 36415; 36600; 51701; 51702; 70450; 71045; 80048; 80053; 81001; 82803; 82962; 83605; 83735; 83880; 84100; 85025; 85027; 85610; 87040; 87086; 87088; 87186; 93005; 93010; 94640; 94660; 96360; 96361; 99285; J1644; J1815; J2185; J2920; J3490; J7030; J7620; S0164

== ENCOUNTER 2019-09-13 11:19 | Observation (INO) | payer MEDICARE, BC, MEDICAID ==
[2019-09-13 12:01] LABS: ABSOLUTE BASOPHILS # (AUTO) 0.1 10^3/uL (0.0-0.2); ABSOLUTE EOSINOPHILS # (AUTO) 0.3 10^3/uL (0.0-0.6); ABSOLUTE LYMPHOCYTES (AUTO) 1.2 10^3/uL (0.5-4.7); ABSOLUTE MONOCYTES (AUTO) 0.5 10^3/uL (0.1-1.4); ABSOLUTE NEUT (AUTO) 4.3 10^3/uL (1.7-8.2); EOSINOPHILS % (AUTO) 4.3 % (0-6); HEMOGLOBIN 12.1 g/dL (12.0-15.5); LYMPHOCYTES % (AUTO) 19.4 % (13-45); MEAN CORPUSCULAR HEMOGLOBIN 31.7 pg (27.0-33.4); MEAN CORPUSCULAR HGB CONC 33.5 g/dL (32.0-36.0); MEAN CORPUSCULAR VOLUME 95 fl (80-97); MONOCYTES % (AUTO) 7.4 % (3-13); PLATELET COUNT 240 10^3/uL (150-450); RED BLOOD COUNT 3.81 10^6/uL (3.72-5.28); RED CELL DISTRIBUTION WIDTH 15.2 % (11.5-14.0); SEGMENTED NEUTROPHILS % (AUTO) 67.9 % (42-78); TOTAL CELLS COUNTED % (AUTO) 100 %; WHITE BLOOD COUNT 6.3 10^3/uL (4.0-10.5)
[2019-09-13 12:15] LABS: ALKALINE PHOSPHATASE 87 U/L (38-126); ANION GAP 10 (5-19); ASPARTATE AMINO TRANSFERASE 16 U/L (14-36); BILIRUBIN,DIRECT 0.2 mg/dL (0.0-0.4); BILIRUBIN,TOTAL 0.4 mg/dL (0.2-1.3); BLOOD UREA NITROGEN 22 mg/dL (7-20); CALCIUM 8.2 mg/dL (8.4-10.2); CARBON DIOXIDE 35 mmol/L (22-30); CHLORIDE 95 mmol/L (98-107); GLUCOSE 129 mg/dL (75-110); POTASSIUM 3.2 mmol/L (3.6-5.0)
[2019-09-13 12:17] LABS: ALCOHOL < 10 mg/dL (NONE DETECTED)
[2019-09-13 13:20] LABS: APPEARANCE,URINE SLIGHTLY HAZY; BILIRUBIN,URINE NEGATIVE (NEGATIVE); COLOR,URINE YELLOW; GLUCOSE, URINE NEGATIVE (NEGATIVE)
[2019-09-13 13:21] LABS: ADD MANUAL MICROSCOPIC YES; KETONES,URINE NEGATIVE (NEGATIVE); LEUKOCYTE ESTERASE,URINE LARGE (NEGATIVE); NITRITE,URINE NEGATIVE (NEGATIVE); PROTEIN,URINE 100 mg/dL (NEGATIVE); URINE SPECIFIC GRAVITY 1.015
[2019-09-13 13:23] LABS: URINE AMPHETAMINES SCREEN NEGATIVE; URINE BARBITURATES SCREEN NEGATIVE; URINE BENZODIAZEPINES SCREEN NEGATIVE; URINE COCAINE SCREEN NEGATIVE; URINE MARIJUANA (THC) SCREEN NEGATIVE; URINE METHADONE SCREEN NEGATIVE; URINE PHENCYCLIDINE SCREEN NEGATIVE
[2019-09-13 13:36] LABS: VENOUS BLOOD BASE EXCESS -1.8 mmol/L; VENOUS BLOOD PCO2 45.2 mmHg (35-63); VENOUS BLOOD PH 7.34 (7.30-7.42)
[2019-09-13 14:00] LABS: INTERNATIONAL RATION (INR) 1.13; PROTHROMBIN TIME 14.5 SEC (11.4-15.4)
--- NOTE | 2019-09-13 14:09 | RADIOLOGY REPORT (SQ) ---
EXAM DESCRIPTION: CHEST SINGLE VIEW COMPLETED DATE/TIME: 09/13/2019 2:00 pm REASON FOR STUDY: AMS COMPARISON: 04/27/2019 EXAM PARAMETERS: NUMBER OF VIEWS: One view. TECHNIQUE: Single frontal radiographic view of the chest acquired. RADIATION DOSE: NA LIMITATIONS: None. FINDINGS: LUNGS AND PLEURA: No opacities, masses or pneumothorax. No pleural effusion. MEDIASTINUM AND HILAR STRUCTURES: No masses. Contour normal. HEART AND VASCULAR STRUCTURES: Heart normal in size. Normal vasculature. BONES: No acute findings. HARDWARE: None in the chest. OTHER: No other significant finding. IMPRESSION: NO ACUTE RADIOGRAPHIC FINDING IN THE CHEST. TECHNICAL DOCUMENTATION: JOB ID: [id number] [employer]- All Rights Reserved Reading location - IP/workstation name: [email or web address]
--- NOTE | 2019-09-13 14:29 | EKG REPORT ---
SEVERITY:- ABNORMAL ECG - ATRIAL FIBRILLATION, V-RATE 82-118 MULTIFORM VENTRICULAR PREMATURE COMPLEXES : Confirmed by: Janette Chu MD 13-Sep-2019 14:29:09
[2019-09-13] MEDS ORDERED: MEROPENEM 1 GM VIAL IV ONE (14:51)
--- NOTE | 2019-09-13 15:03 | RADIOLOGY REPORT (SQ) ---
EXAM DESCRIPTION: CT HEAD WITHOUT COMPLETED DATE/TIME: 09/13/2019 2:51 pm REASON FOR STUDY: AMS COMPARISON: 04/27/2019 TECHNIQUE: Axial images acquired through the brain without intravenous contrast. Images reviewed wi th bone, brain and subdural windows. Additional sagittal and coronal reconstructions were generated. Images stored on PACS. All CT scanners at this facility use dose modulation, iterative reconstruction, and/or weight based d osing when appropriate to reduce radiation dose to as low as reasonably achievable (ALARA). [facility]: Dose Right [facility]: CareDose [facility]: Dose Right [facility]: Teradose 4D [facility]: [employer] RADIATION DOSE: CT Rad equipment meets quality standard of care and radiation dose reduction techniq ues were employed. CTDIvol: 53.2 mGy. DLP: 1097 mGy-cm. mGy. LIMITATIONS: None. FINDINGS: VENTRICLES: Prominent. CEREBRUM: No masses. No hemorrhage. No midline shift. Areas of low density in the white matter mos t likely due to chronic micro-vascular ischemic change. No evidence for acute infarction. CEREBELLUM: No masses. No hemorrhage. No alteration of density. No evidence for acute infarction. EXTRAAXIAL SPACES: Mild age-related involutional change. No fluid collections. No masses. ORBITS AND GLOBE: No intra- or extraconal masses. Normal contour of globe without masses. CALVARIUM: No fracture. PARANASAL SINUSES: No fluid or mucosal thickening. SOFT TISSUES: No mass or hematoma. OTHER: No other significant finding. IMPRESSION: MILD CHRONIC CHANGES OF ATROPHY AND MICROVASCULAR ISCHEMIA. NO ACUTE PROCESS. EVIDENCE OF ACUTE STROKE: NO. TECHNICAL DOCUMENTATION: JOB ID: [id number] Quality ID # [id number]: Final reports with documentation of one or more dose reduction techniques (e.g., Au tomated exposure control, adjustment of the mA and/or kV according to patient size, use of iterative reconstruction technique) 2010 [employer]- All Rights Reserved Reading location - IP/workstation name: [email or web address]
--- NOTE | 2019-09-13 15:16 | ER Document Report ---
Entered by BRENDAN GUALLPA SCRIBE 09/13/19 1334 Acting as scribe for:MIKI PATIÑO DO ED General - General Chief Complaint: lethargy Stated Complaint: ALTERED MENTAL STATUS Time Seen by Provider: 09/13/19 12:45 Primary Care Provider: KAILA GARLAND MD [Primary Care Provider] - Follow up as needed Mode of Arrival: Ambulatory Information source: Patient Cannot obtain history due to: Altered mental status Notes: This 89 year old female patient presents to the emergency department today with complaints of "only sleeping" per the patient's assisted. Daughter at bedside states that the patient frequently gets like this when she gets a urine infection. Daughter states that they have "tried her on two antibiotics" but the patient has not really seemed to improve. TRAVEL OUTSIDE OF THE [place] IN LAST 30 DAYS: No - Related Data Allergies/Adverse Reactions: aspirin Allergy (Verified 11/24/16 02:04) dipyridamole [From Persantine] Allergy (Verified 11/24/16 02:04) nalbuphine [From Nubain] Allergy (Verified 11/24/16 02:04) Penicillins Allergy (Verified 11/24/16 02:04) Sulfa (Sulfonamide Antibiotics) Allergy (Verified 11/24/16 02:04) IVC dye Allergy (Uncoded 11/24/16 02:04) Past Medical History - General Information source: Patient - Social History Smoking Status: Never Smoker Cigarette use (# per day): No Frequency of alcohol use: None Drug Abuse: None Lives with: Family Family History: Reviewed & Not Pertinent Patient has suicidal ideation: No Patient has homicidal ideation: No - Past Medical History Cardiac Medical History: Reports: Hx Atrial Fibrillation, Hx Congestive Heart Failure, Hx Coronary Artery Disease, Hx Hypercholesterolemia, Hx Hypertension Pulmonary Medical History: Reports: Hx Asthma - sob with exertion, Hx COPD, Hx Respiratory Failure - Home O2 dependent Endocrine Medical History: Reports: Hx Diabetes Mellitus Type 2 GI Medical History: Reports: Hx Gastroesophageal Reflux Disease Musculoskeletal Medical History: Reports Hx Arthritis Psychiatric Medical History: Reports: Hx Depression - anxiety Infectious Medical History: Reports: Hx MRSA Past Surgical History: Reports: Hx Appendectomy, Hx Breast Surgery - L breast cycst removal, Hx Cardiac Catheterization - x2, Hx Cholecystectomy, Hx Co lostomy, Hx Rectal Surgery - Colostomy, Other - Immunizations Hx Diphtheria, Pertussis, Tetanus Vaccination: Yes Review of Systems - Review of Systems -: Yes ROS unobtainable due to patient's medical condition Physical Exam - Vital signs Vitals: Resp BP Pulse Ox 15 110/60 100 09/13/19 11:35 09/13/19 11:35 09/13/19 11:35 Interpretation: Tachycardic - General General appearance: Lethargic - Respiratory Respiratory status: No respiratory distress Breath sounds: Normal - Cardiovascular Rhythm: Regular, Tachycardia - Abdominal Inspection: Normal, Other - Colostomy with good output. No erythema or d ischarge. Tenderness: Nontender - Back Back: Normal - Extremities General upper extremity: Normal inspection General lower extremity: Normal inspection - Neurological Bethesda Coma Scale Eye Opening: To Voice Pearl Coma Scale Verbal: Confused Bethesda Coma Scale Motor: Localizes to Pain Bethesda Coma Scale Total: 12 - Psychological Associated symptoms: Confused - Skin Skin Temperature: Warm Skin Moisture: Dry Skin Color: Normal Course - Re-evaluation Re-evalutation: 09/13/19 14:47 Hospitalist called about admission 09/13/19 14:52 Dr. Marquez accepts for admission Patient is an 89-year-old female from [facility] who was brought in for lethargy. Patient has a urine from 1125 with ESBL resistant to multiple antibiotics. Reviewed MAR from assisted and cannot see that any antibiotics were initiated. Patient has been increasingly somnolent according to daughter. Per notes, she is DNR/DNI. Patient will have culture sent and be started on meropenem. She will require IV antibiotics. Patient responds to stimulus but is generally Arazi. Of note, she was hypotensive for EMS but is responding to fluid bolus. Stable at the time of admission to the hospital service. Lactic negative. Daughter has been updated. - Vital Signs Vital signs: Temp Pulse Resp BP Pulse Ox 98.7 F 96 16 110/62 100 09/13/19 11:42 09/13/19 11:42 09/13/19 13:02 09/13/19 13:02 09/13/19 13:02 - Laboratory Result Diagrams: 09/13/19 11:31 12 11:31 Laboratory results interpreted by me: 09/13/19 09/13/19 09/13/19 11:31 11:31 12:28 RDW 15.2 H Potassium 3.2 L Chloride 95 L Carbon Dioxide 35 H BUN 22 H Creatinine 1.29 H Est GFR ( Amer) 47 L Est GFR (MDRD) Non-Af 39 L Glucose 129 H Calcium 8.2 L Total Protein 6.0 L Albumin 3.0 L Urine Protein 100 H Urine Blood LARGE H Urine Urobilinogen 2.0 H Ur Leukocyte Esterase LARGE H - Diagnostic Test Radiology reviewed: Reports reviewed Discharge - Discharge Clinical Impression: Acute encephalopathy Urinary tract infection Qualifiers: Urinary tract infection type: site unspecified Hematuria presence: without hematuria Qualified Code(s): N39.0 - Urinary tract infection, site not specified Condition: Stable Disposition: ADMITTED INPATIENT Admitting Provider: Alma (Hospitalist) Unit Admitted: Telemetry Referrals: KAILA GARLAND MD [Primary Care Provider] - Follow up as needed I personally performed the services described in the documentation, reviewed and edited the documentation which was dictated to the scribe in my presence, and it accurately records my words and actions.
[2019-09-13] MEDS ORDERED: DEXTROSE 40% GEL 15 GM TUBE PO PRN ×2 (15:30)
[2019-09-13] MEDS ORDERED: GLUCAGON,HUMAN RECOMB 1 MG INJ IM PRN (15:30)
[2019-09-13] MEDS ORDERED: DEXTROSE 50%-WATER 25 GM/50 ML DISP.SYRIN IV PRN ×2 (15:30)
--- NOTE | 2019-09-13 15:34 | PDOC H&P ---
History of Present Illness Admission Date/PCP: KAILA GARLAND MD Patient complains of: lethargy History of Present Illness: MICHELLE HAYDEN is a 89 year old female with a past medical history of atrial fibrillation on Eliquis, hypertension, hyperlipidemia, CAD, COPD, diabetes metas type II, CKD 3, CHF, history of a rectal mass with prior rectal surgery and co lostomy, history of left ureteral stricture and stenting and prior history of recurrent ESBL UTIs who was [facility] the ER from [facility] living due to lethargy. As mentioned, patient was sent from [place] as she was noted to be lethargic and weak. She reportedly has been usually more sleepy in the past several days. Daughter reports that she usually gets lethargic when she has developed a UTI. Patient was reportedly tried on 2 oral antibiotics recently but did not improve. Her recent urine culture from last week grew ESBL. Upon encounter, she appears comfortable. She is oriented to person, month/year and place. She does report that she has been having dysuria and lower back pain for the past week. She denies fever or chills. She denies chest pain or shortness of breath. Past Medical History Cardiac Medical History: Reports: Atrial Fibrillation, Congestive Heart Failure, Coronary Artery Disease, Hyperlipidema, Hypertension Denies: Myocardial Infarction Pulmonary Medical History: Reports: Asthma - sob with exertion, Chronic Obstructive Pulmonary Disease (COPD), Respiratory Failure - Home O2 dependent Denies: Bronchitis, Pneumonia, Tuberculosis Neurological Medical History: Denies: Seizures Endocrine Medical History: Reports: Diabetes Mellitus Type 2 GI Medical History: Reports: Gastroesophageal Reflux Disease Musculoskeltal Medical History: Reports: Arthritis Psychiatric Medical History: Reports: Depression - anxiety Hematology: Reports: Anemia Infectious Medical History: Reports: Methicillin-Resistant Staph Aureus Past Surgical History Past Surgical History: Reports: Appendectomy, Cardiac Catheterization - x2, Cholecystectomy, Colostomy, Other Denies: Hysterectomy, Pacemaker Social History Lives with: Family Smoking Status: Never Smoker Frequency of Alcohol Use: None Hx Recreational Drug Use: No Drugs: None Hx Prescription Drug Abuse: No Family History Family History: Reviewed & Not Pertinent Parental Family History Reviewed: Yes - No premature CAD Children Family History Reviewed: No Sibling(s) Family History Reviewed.: No Medication/Allergy Allergies/Adverse Reactions: aspirin Allergy (Verified 11/24/16 02:04) dipyridamole [From Persantine] Allergy (Verified 11/24/16 02:04) nalbuphine [From Nubain] Allergy (Verified 11/24/16 02:04) Penicillins Allergy (Verified 11/24/16 02:04) Sulfa (Sulfonamide Antibiotics) Allergy (Verified 11/24/16 02:04) IVC dye Allergy (Uncoded 11/24/16 02:04) Review of Systems All systems: reviewed and no additional remarkable complaints except as stated - As mentioned in HPI Physical Exam Vital Signs: Temp Pulse Resp BP Pulse Ox 98.7 F 96 16 110/62 100 09/13/19 11:42 09/13/19 11:42 09/13/19 13:02 09/13/19 13:02 09/13/19 13:02 Intake & Output 09/12/19 09/13/19 09/14/19 06:59 06:59 06:59 Weight 198 lb 6.656 oz General appearance: PRESENT: no acute distress, well-developed, well-nourished Head exam: PRESENT: atraumatic, normocephalic Eye exam: PRESENT: conjunctiva pink, EOMI, PERRLA. ABSENT: scleral icterus Ear exam: PRESENT: normal external ear exam Mouth exam: PRESENT: moist, tongue midline Neck exam: ABSENT: carotid bruit, JVD, lymphadenopathy, thyromegaly Respiratory exam: PRESENT: clear to auscultation wei. ABSENT: rales, rhonchi, wheezes Cardiovascular exam: PRESENT: RRR. ABSENT: diastolic murmur, rubs, systolic murmur Pulses: PRESENT: normal dorsalis pedis pul GI/Abdominal exam: PRESENT: normal bowel sounds, soft. ABSENT: distended, guarding, mass, organolmegaly, rebound, tenderness Rectal exam: PRESENT: deferred Extremities exam: PRESENT: full ROM. ABSENT: calf tenderness, clubbing, pedal edema Neurological exam: PRESENT: alert, awake, oriented to person, oriented to place, oriented to time, CN II-XII grossly intact. ABSENT: motor sensory deficit Results Laboratory Results: 09/13/19 11:31 09/13/19 11:31 09/13/19 09/13/19 09/13/19 11:31 11:31 12:28 WBC 6.3 RBC 3.81 Hgb 12.1 Hct 36.0 MCV 95 MCH 31.7 MCHC 33.5 RDW 15.2 H Plt Count 240 Seg Neutrophils % 67.9 VBG pH VBG pCO2 VBG HCO3 VBG Base Excess Sodium 139.6 Potassium 3.2 L Chloride 95 L Carbon Dioxide 35 H Anion Gap 10 BUN 22 H Creatinine 1.29 H Est GFR ( Amer) 47 L Glucose 129 H Calcium 8.2 L Magnesium 1.8 Total Bilirubin 0.4 AST 16 Alkaline Phosphatase 87 Total Protein 6.0 L Albumin 3.0 L Urine Color YELLOW Urine Appearance SLIGHTLY HAZY Urine pH 6.0 Ur Specific Melfa 1.015 Urine Protein 100 H Urine Glucose (UA) NEGATIVE Urine Ketones NEGATIVE Urine Blood LARGE H Urine Nitrite NEGATIVE Ur Leukocyte Esterase LARGE H Ur Squamous Epith Cells FEW 09/13/19 13:20 WBC RBC Hgb Hct MCV MCH MCHC RDW Plt Count Seg Neutrophils % VBG pH 7.34 VBG pCO2 45.2 VBG HCO3 24.0 VBG Base Excess -1.8 Sodium Potassium Chloride Carbon Dioxide Anion Gap BUN Creatinine Est GFR ( Amer) Glucose Calcium Magnesium Total Bilirubin AST Alkaline Phosphatase Total Protein Albumin Urine Color Urine Appearance Urine pH Ur Specific Melfa Urine Protein Urine Glucose (UA) Urine Ketones Urine Blood Urine Nitrite Ur Leukocyte Esterase Ur Squamous Epith Cells 09/13/19 11:31 Troponin I < 0.012 Impressions: Chest X-Ray 09/13/19 12:46 IMPRESSION: NO ACUTE RADIOGRAPHIC FINDING IN THE CHEST. Head CT 09/13/19 13:34 IMPRESSION: MILD CHRONIC CHANGES OF ATROPHY AND MICROVASCULAR ISCHEMIA. NO ACUTE PROCESS. EVIDENCE OF ACUTE STROKE: NO. Assessment and Plan - Diagnosis (1) Acute encephalopathy Is this a current diagnosis for this admission?: Yes Plan: Likely metabolic encephalopathy from urinary tract infection. (2) UTI (urinary tract infection) Qualifiers: Urinary tract infection type: site unspecified Hematuria presence: without hematuria Qualified Code(s): N39.0 - Urinary tract infection, site not specified Is this a current diagnosis for this admission?: Yes Plan: Review recent urine culture grew ESBL. She does have lower urinary tract symptoms. We will start patient on meropenem. She does have a history of left ureteral stricture and recurrent ESBL UTIs. Will pursue a CT of the abdomen and pelvis in light of her HUI as well. (3) Chronic atrial fibrillation Is this a current diagnosis for this admission?: Yes Plan: Resume Eliquis and Coreg. (4) Acute kidney injury superimposed on CKD Is this a current diagnosis for this admission?: Yes - Time Time Spent with patient: 25-34 minutes
--- NOTE | 2019-09-13 15:35 | ADVANCED CARE ---
- Diagnosis (1) Acute encephalopathy Diagnosis Current: Yes (2) Acute kidney injury superimposed on CKD Diagnosis Current: Yes (3) UTI (urinary tract infection) Diagnosis Current: Yes (4) Chronic atrial fibrillation Diagnosis Current: Yes Resuscitation Status: Do Not Resuscitate Discussion: Patient's CODE STATUS was verified. She did verbalize she does not want to receive chest compressions, defibrillation or mechanical ventilation if the need arises. She says that her daughter Troy is her surrogate medical decision maker.
--- NOTE | 2019-09-13 16:11 | RADIOLOGY REPORT (SQ) ---
EXAM DESCRIPTION: CT ABD/PELVIS NO ORAL OR IV COMPLETED DATE/TIME: 09/13/2019 3:55 pm REASON FOR STUDY: HUI,recurrent ESBL,prior ureteral stents COMPARISON: 11/20/2016 TECHNIQUE: CT scan of the abdomen and pelvis performed without intravenous or oral contrast. Images reviewed with lung, soft tissue, and bone windows. Reconstructed coronal and sagittal MPR images revi ewed. All images stored on PACS. All CT scanners at this facility use dose modulation, iterative reconstruction, and/or weight based d osing when appropriate to reduce radiation dose to as low as reasonably achievable (ALARA). [facility]: Dose Right [facility]: CareDose [facility]: Dose Right [facility]: Teradose 4D [facility]: [employer] RADIATION DOSE: CT Rad equipment meets quality standard of care and radiation dose reduction techniq ues were employed. CTDIvol: 18.0 mGy. DLP: 949 mGy-cm.mGy. LIMITATIONS: None. FINDINGS: LOWER CHEST: No significant findings. No nodules or infiltrates. NON-CONTRASTED LIVER, SPLEEN, ADRENALS: Evaluation limited by lack of IV contrast. No identified sign ificant masses. PANCREAS: The pancreas is atrophic. GALLBLADDER: Surgically absent. RIGHT KIDNEY AND URETER: No suspicious masses. Assessment limited by lack of IV contrast. No signif icant calcifications. No hydronephrosis or hydroureter. LEFT KIDNEY AND URETER: No suspicious masses. Assessment limited by lack of IV contrast. No signifi cant calcifications. There is left-sided hydronephrosis. Mild peripelvic stranding. Double-J uret eral stent previously in place is no longer present. The amount of hydronephrosis grossly stable fro m prior study. There is parenchymal atrophy. There is left ureteral distention. AORTA AND RETROPERITONEUM: No aneurysm. No retroperitoneal masses or adenopathy. BOWEL AND PERITONEAL CAVITY: No acute inflammatory changes. Ostomy site in the left lower quadrant. There is herniation of colon and omental fat at the ostomy site. APPENDIX: Not visualized. PELVIS, BLADDER, AND ABDOMINAL WALL:There is presacral thickening unchanged. BONES: No significant findings. OTHER: No other significant finding. IMPRESSION: Grossly stable left-sided hydronephrosis following removal of the left double-J ureteral stent. Persistent left perinephric stranding and peripelvic stranding. Ostomy site in the left lower quadrant. The site demonstrates herniation of colon and omental fat as well. COMMENT: Quality ID # [id number]: Final reports with documentation of one or more dose reduction techniques (e.g., Automated exposure control, adjustment of the mA and/or kV according to patient size, use of iterative reconstruction technique) TECHNICAL DOCUMENTATION: JOB ID: [id number] [employer]- All Rights Reserved Reading location - IP/workstation name: [email or web address]
[2019-09-13] MEDS: INSULIN LISPRO 100 UNIT/ML 3 ML VIAL SUBCUT SCH ×2 (16:13→23:06)
[2019-09-13] MEDS: POTASSI CL 20 MEQ/50 ML RIDER 20 MEQ/50 ML RTUPB IV SCH ×2 (16:14→17:57)
[2019-09-13] MEDS: APIXABAN 2.5 MG TABLET PO SCH (17:57)
[2019-09-13] MEDS ORDERED: MEROPENEM 1 GM VIAL IV SCH (22:00)
[2019-09-13] MEDS ORDERED: HEPARIN SOD (PORCINE) 5,000 UNIT/ML 1 ML VIAL SUBCUT SCH (22:00)
[2019-09-13] MEDS: CARVEDILOL 12.5 MG TABLET PO SCH (22:58)
[2019-09-13] MEDS ORDERED: MEROPENEM 1 GM VIAL ONE (23:06)
[2019-09-13] MEDS: MEROPENEM 1 GM in NORMAL SALINE 50 ML IV SCH (23:19)
[2019-09-14] MEDS: INSULIN LISPRO 100 UNIT/ML 3 ML VIAL SUBCUT SCH ×4 (08:50→22:15)
[2019-09-14 08:58] LABS: ANION GAP 7 (5-19); BLOOD UREA NITROGEN 19 mg/dL (7-20); CALCIUM 8.1 mg/dL (8.4-10.2); CARBON DIOXIDE 34 mmol/L (22-30); CHLORIDE 98 mmol/L (98-107); GLUCOSE 83 mg/dL (75-110); POTASSIUM 3.7 mmol/L (3.6-5.0)
[2019-09-14] MEDS: MEROPENEM 1 GM in NORMAL SALINE 50 ML IV SCH ×2 (09:31→22:17)
[2019-09-14] MEDS: APIXABAN 2.5 MG TABLET PO SCH (09:31)
[2019-09-14] MEDS: CARVEDILOL 12.5 MG TABLET PO SCH ×2 (09:31→22:17)
--- NOTE | 2019-09-14 16:35 | PDOC PROGRESS REPORT ---
Subjective Progress Note for:: 09/14/19 Subjective:: MICHELLE HAYDEN is a 89 year old female with a past medical history of atrial fibrillation on Eliquis, hypertension, hyperlipidemia, CAD, COPD, diabetes metas type II, CKD 3, CHF, history of a rectal mass with prior rectal surgery and colostomy, history of left ureteral stricture and stenting and prior history of recurrent ESBL UTIs who was sent to the ER from group home due to lethargy. She was admitted for acute encephalopathy likely from ESBL UTI. She was started on IV meropenem. No acute event overnight. She denies acute complaints. Denies chest pain or shortness of breath. Upon encounter, she appears to be at her baseline mentation. She says she feels better today. Reason For Visit: ACUTE ENCEPHALOPATHY ESBL UTI Physical Exam Vital Signs: Temp Pulse Resp BP Pulse Ox 97.5 F 102 H 16 129/65 H 100 09/14/19 15:48 09/14/19 15:48 09/14/19 15:48 09/14/19 15:48 09/14/19 15:48 Intake & Output 09/13/19 09/14/19 09/15/19 06:59 06:59 06:59 Intake Total 143 310 Balance 143 310 Weight 198 lb 6.656 oz General appearance: PRESENT: no acute distress, well-developed, well-nourished Head exam: PRESENT: atraumatic, normocephalic Eye exam: PRESENT: conjunctiva pink, EOMI, PERRLA. ABSENT: scleral icterus Ear exam: PRESENT: normal external ear exam Mouth exam: PRESENT: moist, tongue midline Neck exam: ABSENT: carotid bruit, JVD, lymphadenopathy, thyromegaly Respiratory exam: PRESENT: clear to auscultation wei. ABSENT: rales, rhonchi, wheezes Cardiovascular exam: PRESENT: RRR. ABSENT: diastolic murmur, rubs, systolic murmur Pulses: PRESENT: normal dorsalis pedis pul GI/Abdominal exam: PRESENT: normal bowel sounds, soft. ABSENT: distended, guarding, mass, organolmegaly, rebound, tenderness Rectal exam: PRESENT: deferred Extremities exam: PRESENT: full ROM. ABSENT: calf tenderness, clubbing, pedal edema Neurological exam: PRESENT: alert, awake, oriented to person, oriented to place, CN II-XII grossly intact. ABSENT: motor sensory deficit Results Laboratory Results: 09/13/19 11:31 09/14/19 08:04 09/14/19 08:04 Sodium 139.3 Potassium 3.7 Chloride 98 Carbon Dioxide 34 H Anion Gap 7 BUN 19 Creatinine 1.02 Est GFR ( Amer) > 60 Glucose 83 Calcium 8.1 L 09/13/19 11:31 Troponin I < 0.012 Impressions: Chest X-Ray 09/13/19 12:46 IMPRESSION: NO ACUTE RADIOGRAPHIC FINDING IN THE CHEST. Head CT 09/13/19 13:34 IMPRESSION: MILD CHRONIC CHANGES OF ATROPHY AND MICROVASCULAR ISCHEMIA. NO ACUTE PROCESS. EVIDENCE OF ACUTE STROKE: NO. Abdomen/Pelvis CT 09/13/19 15:18 IMPRESSION: Grossly stable left-sided hydronephrosis following removal of the left double-J ureteral stent. Persistent left perinephric stranding and peripelvic stranding. Ostomy site in the left lower quadrant. The site demonstrates herniation of colon and omental fat as well. Assessment and Plan - Diagnosis (1) Acute encephalopathy Is this a current diagnosis for this admission?: Yes Plan: Resolving. Likely metabolic encephalopathy from urinary tract infection. (2) UTI (urinary tract infection) Qualifiers: Urinary tract infection type: site unspecified Hematuria presence: without hematuria Qualified Code(s): N39.0 - Urinary tract infection, site not specified Is this a current diagnosis for this admission?: Yes Plan: 09/13: Reviewed recent urine culture grew ESBL. She does have lower urinary tract symptoms. We will start patient on meropenem. She does have a history of left ureteral stricture and recurrent ESBL UTIs. Will pursue a CT of the abdomen and pelvis in light of her HUI as well. 09/14: Will order for a PICC line as she will need at least 7 days of IV meropenem. CT of the abdomen pelvis shows stable left-sided hydronephrosis. She had a previously removed left ureteral stent. She will need outpatient follow-up with urology for this. (3) Acute kidney injury superimposed on CKD Is this a current diagnosis for this admission?: Yes Plan: Improved. (4) Chronic atrial fibrillation Is this a current diagnosis for this admission?: Yes Plan: Continue Coreg. Mira on hold for PICC line placement.
--- NOTE | 2019-09-14 16:59 | RADIOLOGY REPORT (SQ) ---
EXAM DESCRIPTION: PICC INSERTION; FLUORO/CV PLACEMENT; U/S GUIDE FOR VASCULAR ACCESS COMPLETED DATE/TIME: 09/14/2019 2:29 pm REASON FOR STUDY: abx treatment; ABX TREATMENT; IV ABX COMPARISON: None. FLUOROSCOPY TIME: 0.39 minutes. 1 submitted to PACS. TECHNIQUE: Refer to the Procedure. LIMITATIONS: None. PROCEDURE: The procedure, risks, benefits, and alternatives were discussed with the patient in the p reprocedural area, and all questions were answered. Informed consent was obtained verbally and in wri ting. The patient was then brought to the procedural suite, positioned supine on the fluoroscopy table, and a time-out was performed. At first the left upper extremity was evaluated with ultrasound and the brachial vein was found to be patent and compressible. The left upper extremity was then prepped and draped with 2% chlorhexidine utilizing standard sterile technique. After the skin over the brachial vein was anesthetized with 1% lidocaine, ultrasound guidance was used to access the vessel with a 21-gauge needle - a sonographic i mage was stored for documentation. A 0.018 inch guidewire was then inserted through the needle and ad vanced under fluoroscopic guidance into the SVC. After that, the needle was exchanged over the guidew marion for a peel-away sheath. A 5 Greenlandic double -lumen PICC was then cut to the appropriate length, ins erted through the sheath and advanced under fluoroscopic guidance into the SVC. After that, the peel- away sheath was removed and a fluoroscopic image of the chest was obtained to confirm proper position of the catheter tip within SVC. The lumens of the PICC were then aspirated, flushed with sterile saline and heparinized. At the end of the procedure the PICC was secured in place and a sterile dressing applied over it. The patient tolerated the procedure well without immediate complication. At the end of the procedure the patient's condition was unchanged from the preprocedural baseline. No IV conscious sedation was administered. Physiologic monitoring was provided before, during, and after the procedure. Documentation of [id number] time performing proceduralist spent monitoring the patient: 15 minutes. IMPRESSION: Successful placement of a left upper extremity PICC utilizing fluoroscopic and sonograph ic guidance. COMMENT: Patient medication list reviewed: Yes- Quality ID# 130:Eligible professional attests to doc umenting in the medical record they obtained, updated, or reviewed the patient's current medications. . Quality ID 145: Final reports for procedures using fluoroscopy that document radiation exposure oli anisha, or exposure time and number of fluorographic images (if radiation exposure indices are not avail able) Quality ID #76: The patient was prepped and draped using maximum sterile barrier technique including cap, mask, sterile gown, sterile gloves, a large sterile sheet, hand hygiene, and 2% Chlorhexidine fo r cutaneous antisepsis. When ultrasound is used, sterile ultrasound techniques are followed requiring sterile gel and sterile probes. TECHNICAL DOCUMENTATION: JOB ID: [id number] [employer]- All Rights Reserved rev-02/26 Reading location - IP/workstation name: [email or web address]
[2019-09-15] MEDS: INSULIN LISPRO 100 UNIT/ML 3 ML VIAL SUBCUT SCH ×2 (07:14→12:08)
[2019-09-15] MEDS: APIXABAN 2.5 MG TABLET PO SCH (10:28)
[2019-09-15] MEDS: MEROPENEM 1 GM in NORMAL SALINE 50 ML IV SCH (10:28)
[2019-09-15] MEDS: CARVEDILOL 12.5 MG TABLET PO SCH (10:28)
--- NOTE | 2019-09-15 11:35 | PDOC TRANSFER SUMMARY ---
Impression - Admit/DC Date/PCP Admission Date/Primary Care Provider: 09/13/19 15:24 KAILA GARLAND MD Discharge Date: 09/15/19 - Discharge Diagnosis (1) Acute encephalopathy Is this a current diagnosis for this admission?: Yes (2) UTI (urinary tract infection) Is this a current diagnosis for this admission?: Yes (3) Acute kidney injury superimposed on CKD Is this a current diagnosis for this admission?: Yes (4) Chronic atrial fibrillation Is this a current diagnosis for this admission?: Yes (5) Atrial fibrillation Is this a current diagnosis for this admission?: Yes (6) Diabetes Is this a current diagnosis for this admission?: Yes (7) Hypertension Is this a current diagnosis for this admission?: Yes (8) Hyperlipemia Is this a current diagnosis for this admission?: Yes - Additional Information Resuscitation Status: Do Not Resuscitate Referrals: [facility] [Outside] Prescriptions: Meropenem [Merrem 1 gm Vial] 1 gm IV Q12 8 Days #16 vial Home Medications: Acetaminophen [Tylenol 325 mg Tablet] 325 mg PO HSP PRN 09/13/19 Acetaminophen [Tylenol 650 mg Supp] 650 mg [place] Q4HP PRN 09/13/19 Apixaban [Eliquis 2.5 mg Tablet] 2.5 mg PO BID 09/13/19 Atorvastatin Calcium [Lipitor 40 mg Tablet] 40 mg PO DAILY 09/13/19 Carvedilol [Coreg 12.5 mg Tablet] 12.5 mg PO Q12 09/13/19 Duloxetine HCl [Cymbalta 20 mg Capsule.dr] 80 mg PO DAILY 09/13/19 Furosemide [Lasix 40 mg Tablet] 40 mg PO DAILY 09/13/19 Insulin Glargine,Hum.rec.anlog [Basaglar Kwikpen U-100] 20 unit SQ QHS 09/13/19 Insulin Lispro [Humalog Insulin (Lispro) 100 unit/mL] 0 unit SUBCUT .SLD SCALE 09/13/19 Ipratropium/Albuterol Sulfate [Duoneb 3 ml Ampul] 3 ml NEB RTQ8HP PRN 09/13/19 Isosorbide Mononitrate [Imdur 30 mg Tablet.er] 30 mg PO DAILY 09/13/19 Linagliptin [Tradjenta] 5 mg PO DAILY 09/13/19 Nystatin [Mycostatin Topical Powder 15 gm] 1 applic TP TID 09/13/19 Omeprazole 20 mg PO Q6AM 09/13/19 Oxycodone HCl [Oxy-Ir 5 mg Tablet] 5 mg PO Q12HP PRN 09/13/19 Pregabalin [Lyrica 50 mg Capsule] 50 mg PO BID 09/13/19 Meropenem [Merrem 1 gm Vial] 1 gm IV Q12 8 Days #16 vial 09/15/19 History of Present Illiness History of Present Illness: MICHELLE HAYDEN is a 89 year old female with a past medical history of atrial fibrillation on Eliquis, hypertension, hyperlipidemia, CAD, COPD, diabetes metas type II, CKD 3, CHF, history of a rectal mass with prior rectal surgery and colostomy, history of left ureteral stricture and stenting and prior history of recurrent ESBL UTIs who [facility]y. As mentioned, patient was sent from [place] as she was noted to be lethargic and weak. She reportedly has been usually more sleepy in the past several days. Daughter reports that she usually gets lethargic when she has developed a UTI. Patient was reportedly tried on 2 oral antibiotics recently but did not improve. Her recent urine culture from last week grew ESBL. Upon encounter, she appears comfortable. She is oriented to person, month/year and place. She does report that she has been having dysuria and lower back pain for the past week. She denies fever or chills. She denies chest pain or shortness of breath. Hospital Course Hospital Course: MICHELLE HAYDEN is a 89 year old female with a past medical history of atrial fibrillation on Eliquis, hypertension, hyperlipidemia, CAD, COPD, diabetes metas type II, CKD 3, CHF, history of a rectal mass with prior rectal surgery and colostomy, history of left ureteral stricture and stenting and prior history of recurrent ESBL UTIs who was [facility] the [facility] from [facility] due to [facility]argy. She was admitted for acute encephalopathy likely from ESBL UTI. She was started on IV meropenem. She did improve significantly with IV antibiotics and returned to her baseline. She had a PICC line placed and will complete 8 more days of Meropenem. She does have a history of left ureteral stricture and recurrent ESBL UTIs. CT of the abdomen pelvis shows stable left-sided hydronephrosis. She will be set-up with outpatient urology to follow up on this. Physical Exam Vital Signs: Temp Pulse Resp BP Pulse Ox 97.4 F 80 18 144/76 H 100 09/15/19 07:38 09/15/19 07:38 09/15/19 07:38 09/15/19 07:38 09/15/19 07:38 Intake & Output 09/14/19 09/15/19 09/16/19 06:59 06:59 06:59 Intake Total 143 1118 Output Total 40 Balance 143 1078 Weight 198 lb 6.656 oz 195 lb 1.745 oz General appearance: PRESENT: no acute distress, well-developed, well-nourished Head exam: PRESENT: atraumatic, normocephalic Eye exam: PRESENT: conjunctiva pink, EOMI, PERRLA. ABSENT: scleral icterus Ear exam: PRESENT: normal external ear exam Mouth exam: PRESENT: moist, tongue midline Neck exam: ABSENT: carotid bruit, JVD, lymphadenopathy, thyromegaly Respiratory exam: PRESENT: clear to auscultation wei. ABSENT: rales, rhonchi, wheezes Cardiovascular exam: PRESENT: RRR. ABSENT: diastolic murmur, rubs, systolic murmur Pulses: PRESENT: normal dorsalis pedis pul GI/Abdominal exam: PRESENT: normal bowel sounds, soft. ABSENT: distended, guarding, mass, organolmegaly, rebound, tenderness Rectal exam: PRESENT: deferred Extremities exam: ABSENT: calf tenderness Neurological exam: PRESENT: alert, awake, oriented to person, oriented to place, CN II-XII grossly intact. ABSENT: motor sensory deficit Results Laboratory Results: WBC 6.3 10^3/uL (4.0-10.5) 09/13/19 11:31 RBC 3.81 10^6/uL (3.72-5.28) 09/13/19 11:31 Hgb 12.1 g/dL (12.0-15.5) 09/13/19 11:31 Hct 36.0 % (36.0-47.0) 09/13/19 11:31 MCV 95 fl (80-97) 09/13/19 11:31 MCH 31.7 pg (27.0-33.4) 09/13/19 11:31 MCHC 33.5 g/dL (32.0-36.0) 09/13/19 11:31 RDW 15.2 % (11.5-14.0) H 09/13/19 11:31 Plt Count 240 10^3/uL (150-450) 09/13/19 11:31 Lymph % (Auto) 19.4 % (13-45) 09/13/19 11:31 [place] % (Auto) 7.4 % (3-13) 09/13/19 11:31 Eos % (Auto) 4.3 % (0-6) 09/13/19 11:31 Baso % (Auto) 1.0 % (0-2) 09/13/19 11:31 Absolute Neuts (auto) 4.3 10^3/uL (1.7-8.2) 09/13/19 11:31 Absolute Lymphs (auto) 1.2 10^3/uL (0.5-4.7) 09/13/19 11:31 Absolute Monos (auto) 0.5 10^3/uL (0.1-1.4) 09/13/19 11:31 Absolute Eos (auto) 0.3 10^3/uL (0.0-0.6) 09/13/19 11:31 Absolute Basos (auto) 0.1 10^3/uL (0.0-0.2) 09/13/19 11:31 Seg Neutrophils % 67.9 % (42-78) 09/13/19 11:31 PT 14.5 SEC (11.4-15.4) 09/13/19 11:31 INR 1.13 09/13/19 11:31 VBG pH 7.34 (7.30-7.42) 09/13/19 13:20 VBG pCO2 45.2 mmHg (35-63) 09/13/19 13:20 VBG HCO3 24.0 mmol/L (20-32) 09/13/19 13:20 VBG Base Excess -1.8 mmol/L 09/13/19 13:20 Sodium 139.3 mmol/L (137-145) 09/14/19 08:04 Potassium 3.7 mmol/L (3.6-5.0) 09/14/19 08:04 Chloride 98 mmol/L (98-107) 09/14/19 08:04 Carbon Dioxide 34 mmol/L (22-30) H 09/14/19 08:04 Anion Gap 7 (5-19) 09/14/19 08:04 BUN 19 mg/dL (7-20) 09/14/19 08:04 Creatinine 1.02 mg/dL (0.52-1.25) 09/14/19 08:04 Est GFR ( Amer) > 60 (>60) 09/14/19 08:04 Est GFR (MDRD) Non-Af 51 (>60) L 09/14/19 08:04 Glucose 83 mg/dL (75-110) 09/14/19 08:04 POC Glucose 128 mg/dL (70-110) H 09/15/19 06:31 Lactic Acid (Sepsis) 0.9 mmol/L (0.7-2.1) 09/13/19 19:55 Calcium 8.1 mg/dL (8.4-10.2) L 09/14/19 08:04 Magnesium 1.8 mg/dL (1.6-2.3) 09/13/19 11:31 Total Bilirubin 0.4 mg/dL (0.2-1.3) 09/13/19 11:31 Direct Bilirubin 0.2 mg/dL (0.0-0.4) 09/13/19 11:31 Neonat Total Bilirubin Not Reportable 09/13/19 11:31 Neonat Direct Bilirubin Not Reportable 09/13/19 11:31 Neonat Indirect Bili Not Reportable 09/13/19 11:31 AST 16 U/L (14-36) 09/13/19 11:31 ALT 6 U/L (<35) 09/13/19 11:31 Alkaline Phosphatase 87 U/L (38-126) 09/13/19 11:31 Troponin I < 0.012 ng/mL 09/13/19 11:31 Total Protein 6.0 g/dL (6.3-8.2) L 09/13/19 11:31 Albumin 3.0 g/dL (3.5-5.0) L 09/13/19 11:31 Urine Color YELLOW 09/13/19 12:28 Urine Appearance SLIGHTLY HAZY 09/13/19 12:28 Urine pH 6.0 (5.0-9.0) 09/13/19 12:28 Ur Specific [place] 1.015 09/13/19 12:28 Urine Protein 100 mg/dL (NEGATIVE) H 09/13/19 12:28 Urine Glucose (UA) NEGATIVE mg/dL (NEGATIVE) 09/13/19 12:28 Urine Ketones NEGATIVE mg/dL (NEGATIVE) 09/13/19 12:28 Urine Blood LARGE (NEGATIVE) H 09/13/19 12:28 Urine Nitrite NEGATIVE (NEGATIVE) 09/13/19 12:28 Urine Bilirubin NEGATIVE (NEGATIVE) 09/13/19 12:28 Urine Urobilinogen 2.0 mg/dL (<2.0) H 09/13/19 12:28 Ur Leukocyte Esterase LARGE (NEGATIVE) H 09/13/19 12:28 Urine RBC 1-5 /HPF 09/13/19 12:28 Urine WBC 5-10 /HPF 09/13/19 12:28 Ur Squamous Epith Cells FEW /HPF 09/13/19 12:28 Urine Ascorbic Acid NEGATIVE (NEGATIVE) 09/13/19 12:28 Urine Opiates Screen NEGATIVE 09/13/19 12:28 Urine Methadone Screen NEGATIVE 09/13/19 12:28 Ur Barbiturates Screen NEGATIVE 09/13/19 12:28 Ur Phencyclidine Scrn NEGATIVE 09/13/19 12:28 Ur Amphetamines Screen NEGATIVE 09/13/19 12:28 U Benzodiazepines Scrn NEGATIVE 09/13/19 12:28 Urine Cocaine Screen NEGATIVE 09/13/19 12:28 U Marijuana (THC) Screen NEGATIVE 09/13/19 12:28 Serum Alcohol < 10 mg/dL (NONE DETECTED) 09/13/19 11:31 09/13/19 11:31 Troponin I < 0.012 Impressions: Chest X-Ray 09/13/19 12:46 IMPRESSION: NO ACUTE RADIOGRAPHIC FINDING IN THE CHEST. Head CT 09/13/19 13:34 IMPRESSION: MILD CHRONIC CHANGES OF ATROPHY AND MICROVASCULAR ISCHEMIA. NO ACUTE PROCESS. EVIDENCE OF ACUTE STROKE: NO. Abdomen/Pelvis CT 09/13/19 15:18 IMPRESSION: Grossly stable left-sided hydronephrosis following removal of the left double-J ureteral stent. Persistent left perinephric stranding and peripelvic stranding. Ostomy site in the left lower quadrant. The site demonstrates herniation of colon and omental fat as well. Guidance Fluoroscopy 09/14/19 00:00 IMPRESSION: Successful placement of a left upper extremity PICC utilizing fluoroscopic and sonographic guidance. Interventional Vascular Procedure 09/14/19 00:00 IMPRESSION: Successful placement of a left upper extremity PICC utilizing fluoroscopic and sonographic guidance. PICC Line Insertion 09/14/19 00:00 IMPRESSION: Successful placement of a left upper extremity PICC utilizing fluoroscopic and sonographic guidance. Stroke Is this a Stroke Patient?: No Acute Heart Failure - Is this a Heart Failure Patient?: No
[2019-09-15 15:46] VITALS: BP 111/70
== END 2019-09-15 16:38 ==
LOC: ER 11:19 → EH 15:24 → 4W 22:25
PROVIDERS: ADMIT Internal Medicine; ATTEND Internal Medicine
DX: G93.40 Encephalopathy, unspecified (principal); N39.0 Urinary tract infection, site not specified; E11.22 Type 2 diabetes mellitus with diabetic chronic kidney disease; I13.0 Hypertensive heart and chronic kidney disease with heart failure and stage 1 through stage 4 chronic kidney disease, or unspecified chronic kidney disease; N18.3 Chronic kidney disease, stage 3 (moderate); I50.9 Heart failure, unspecified; N17.9 Acute kidney failure, unspecified; I48.20 Chronic atrial fibrillation, unspecified; E78.5 Hyperlipidemia, unspecified; I25.10 Atherosclerotic heart disease of native coronary artery without angina pectoris; Z66 Do not resuscitate; N13.30 Unspecified hydronephrosis; J96.90 Respiratory failure, unspecified, unspecified whether with hypoxia or hypercapnia; Z96.0 Presence of urogenital implants; Z93.3 Colostomy status; Z16.12 Extended spectrum beta lactamase (ESBL) resistance; Z87.440 Personal history of urinary (tract) infections; Z99.81 Dependence on supplemental oxygen; Z86.14 Personal history of Methicillin resistant Staphylococcus aureus infection; Z90.49 Acquired absence of other specified parts of digestive tract; Z79.899 Other long term (current) drug therapy; Z79.02 Long term (current) use of antithrombotics/antiplatelets; Z87.19 Personal history of other diseases of the digestive system
CPT/HCPCS: 93005; 99285; 96365; 96366; 36415 ×2; 87040; 87086; 82962 ×3; 80307 ×2; 83735; 84443; 85025; 85610; 80048; 80053; 81001; 84484; 82803; 83605; 71045; 36569; 77001; 76937; 70450; 74176; 93010; G0378 ×4; A9270 ×8; J3490 ×2; J3480; J1642; J2185 ×3; J1815

== ENCOUNTER 2019-09-20 09:33 | Emergency (ER) | payer MEDICARE, BC, MEDICAID ==
[2019-09-20] MEDS ORDERED: RINGERS SOLUTION,LACTATED 500 ML IV ONE ×2 (10:00→12:11)
[2019-09-20 10:32] LABS: ABSOLUTE BASOPHILS # (AUTO) 0.1 10^3/uL (0.0-0.2); ABSOLUTE EOSINOPHILS # (AUTO) 0.3 10^3/uL (0.0-0.6); ABSOLUTE LYMPHOCYTES (AUTO) 1.5 10^3/uL (0.5-4.7); ABSOLUTE MONOCYTES (AUTO) 0.6 10^3/uL (0.1-1.4); EOSINOPHILS % (AUTO) 3.5 % (0-6); HEMATOCRIT 33.9 % (36.0-47.0); HEMOGLOBIN 11.4 g/dL (12.0-15.5); MEAN CORPUSCULAR HEMOGLOBIN 31.3 pg (27.0-33.4); MEAN CORPUSCULAR HGB CONC 33.7 g/dL (32.0-36.0); MEAN CORPUSCULAR VOLUME 93 fl (80-97); MONOCYTES % (AUTO) 7.6 % (3-13); PLATELET COUNT 197 10^3/uL (150-450); RED BLOOD COUNT 3.64 10^6/uL (3.72-5.28); RED CELL DISTRIBUTION WIDTH 14.9 % (11.5-14.0); SEGMENTED NEUTROPHILS % (AUTO) 67.9 % (42-78); TOTAL CELLS COUNTED % (AUTO) 100 %; WHITE BLOOD COUNT 7.3 10^3/uL (4.0-10.5)
[2019-09-20 10:34] LABS: INTERNATIONAL RATION (INR) 1.18; PROTHROMBIN TIME 15.1 SEC (11.4-15.4)
[2019-09-20 10:50] LABS: ALBUMIN 2.8 g/dL (3.5-5.0); ALKALINE PHOSPHATASE 90 U/L (38-126); ASPARTATE AMINO TRANSFERASE 21 U/L (14-36); BILIRUBIN,DIRECT 0.2 mg/dL (0.0-0.4); BILIRUBIN,TOTAL 0.6 mg/dL (0.2-1.3); BLOOD UREA NITROGEN 19 mg/dL (7-20); CALCIUM 8.1 mg/dL (8.4-10.2); CHLORIDE 95 mmol/L (98-107); GLUCOSE 71 mg/dL (75-110); POTASSIUM 3.7 mmol/L (3.6-5.0); TOTAL PROTEIN 5.7 g/dL (6.3-8.2)
[2019-09-20 10:58] LABS: ANION GAP 6 (5-19); CARBON DIOXIDE 39 mmol/L (22-30)
--- NOTE | 2019-09-20 12:09 | ER Document Report ---
ED General - General Chief Complaint: Low Blood Sugar Stated Complaint: ALTERED MENTAL STATUS Time Seen by Provider: 09/20/19 09:41 Primary Care Provider: KAILA GARLAND MD [Primary Care Provider] - Follow up as needed TRAVEL OUTSIDE OF THE [place] IN LAST 30 DAYS: No - HPI Notes: 89f bib EMS from [facility] after found to be hypoglycemic at 2:02 PM of 41, given glucagon. 4:36 AM 130s GLU, but did not receive 8 AM meds, and facility doctor saw her first given the overnight event. They said she was not able to tell them her name & altered from baseline which is fully A/O, conversational appropriate interactive person, now sleepy and confused. EMS report for them her sugar was 70s and she was alert and conversational. She had been given juice and crackers at the facility. On arrival here her her blood sugar was also in the 70s and she was interactive and in no complaints. She had been discharged from our facility fairly recently had a PICC line placed for 8 more days of 1 g meropenem starting 09-15-19. Another primary nurse filling in for her usual nurse looking at documentation says that she did not receive 8 AM meds but she has been receiving her sliding scale insulin and her sugars have not been too low there is been no new medications there is been no change in her diabetes management even before and now after this most recent hospitalization for which she had the E. coli infection in her urine. She is on Eliquis, lispro SS 4 times daily per SS, neb utilized DuoNeb q. 8 as needed, Lipitor 40 nightly, omeprazole 20 twice daily, saxagliptin 5 daily, Lasix 40 every morning, Lyrica 50 twice kaela, atenolol 50 nightly, Lexapro 10 q am, 5 every afternoon, glimepiride 2 mg every afternoon, oxycodone bid prn, Imdur 30 mg ER 24-hour tablet qd - Related Data Allergies/Adverse Reactions: aspirin Allergy (Verified 11/24/16 02:04) dipyridamole [From Persantine] Allergy (Verified 11/24/16 02:04) nalbuphine [From Nubain] Allergy (Verified 11/24/16 02:04) Penicillins Allergy (Verified 11/24/16 02:04) Sulfa (Sulfonamide Antibiotics) Allergy (Verified 11/24/16 02:04) IVC dye Allergy (Uncoded 11/24/16 02:04) Past Medical History - Social History Smoking Status: Never Smoker Family History: Reviewed & Not Pertinent Patient has suicidal ideation: No Patient has homicidal ideation: No - Past Medical History Cardiac Medical History: Reports: Hx Atrial Fibrillation, Hx Congestive Heart Failure, Hx Coronary Artery Disease, Hx Hypercholesterolemia, Hx Hypertension Denies: Hx Heart Attack Pulmonary Medical History: Reports: Hx Asthma - sob with exertion, Hx COPD, Hx Respiratory Failure - Home O2 dependent Denies: Hx Bronchitis, Hx Pneumonia, Hx Tuberculosis Neurological Medical History: Denies: Hx Cerebrovascular Accident, Hx Seizures Endocrine Medical History: Reports: Hx Diabetes Mellitus Type 2 Renal/ Medical History: Denies: Hx Peritoneal Dialysis GI Medical History: Reports: Hx Gastroesophageal Reflux Disease Musculoskeletal Medical History: Reports Hx Arthritis Psychiatric Medical History: Reports: Hx Depression - anxiety Infectious Medical History: Reports: Hx MRSA Past Surgical History: Reports: Hx Appendectomy, Hx Breast Surgery - L breast cycst removal, Hx Cardiac Catheterization - x2, Hx Cholecystectomy, Hx Colostomy, Hx Rectal Surgery - Colostomy, Other. Denies: Hx Hysterectomy, Hx Pacemaker - Immunizations Hx Diphtheria, Pertussis, Tetanus Vaccination: Yes Physical Exam - Vital signs Vitals: Temp Pulse Resp BP Pulse Ox 97.4 F 87 16 97/60 L 100 09/20/19 09:43 09/20/19 09:43 09/20/19 09:43 09/20/19 09:43 09/20/19 09:43 Course - Vital Signs Vital signs: Temp Pulse Resp BP Pulse Ox 97.4 F 87 19 109/70 100 09/20/19 09:43 09/20/19 09:43 09/20/19 14:01 09/20/19 14:00 09/20/19 09:48 - Laboratory Result Diagrams: 09/20/19 10:05 09/20/19 10:05 Laboratory results interpreted by me: 09/20/19 09/20/19 09/20/19 10:05 10:05 10:05 RBC 3.64 L Hgb 11.4 L Hct 33.9 L RDW 14.9 H APTT 44.0 H Chloride 95 L Carbon Dioxide 39 H Est GFR (MDRD) Non-Af 59 L Glucose 71 L POC Glucose Calcium 8.1 L Total Protein 5.7 L Albumin 2.8 L Urine Protein Urine Glucose (UA) Urine Ketones Urine Blood Urine Urobilinogen Ur Leukocyte Esterase 09/20/19 09/20/19 09/20/19 11:00 11:49 12:50 RBC Hgb Hct RDW APTT Chloride Carbon Dioxide Est GFR (MDRD) Non-Af Glucose POC Glucose 67 L 111 H Calcium Total Protein Albumin Urine Protein 100 H Urine Glucose (UA) 50 H Urine Ketones TRACE H Urine Blood LARGE H Urine Urobilinogen 2.0 H Ur Leukocyte Esterase LARGE H 09/20/19 14:00 RBC Hgb Hct RDW APTT Chloride Carbon Dioxide Est GFR (MDRD) Non-Af Glucose POC Glucose 119 H Calcium Total Protein Albumin Urine Protein Urine Glucose (UA) Urine Ketones Urine Blood Urine Urobilinogen Ur Leukocyte Esterase Discharge - Discharge Clinical Impression: Dehydration, mild, Hypoglycemia Condition: Good Disposition: HOME, SELF-CARE Admitting Provider: [facility] Additional Instructions: Today your blood sugar remained okay the few hours you observed in the emergency department your other lab work looks good your kidney function looks better than usual your electrolytes were fine your urine does not show much signs of change compared to 8 when you were discharged. We will send another culture today and your doctors at [facility] can call for the results we would also call if you have a positive culture in 1 to 2 days. Please make sure she is eating and drinking well and does not have any signs of delirium or changes in behavior and avoid insulin dosing with in the lower ranges of her sliding scale. Referrals: KAILA GARLAND MD [Primary Care Provider] - Follow up as needed
[2019-09-20] MEDS ORDERED: ACETAMINOPHEN 325 MG TABLET PO PRN (12:18)
[2019-09-20] MEDS ORDERED: TEMAZEPAM 15 MG CAPSULE PO PRN (12:18)
[2019-09-20] MEDS ORDERED: MAG HYDROX/AL HYDROX/SIMETH SUSP 30 ML UDCUP PO PRN (12:18)
[2019-09-20] MEDS ORDERED: ONDANSETRON HCL INJ/PF 4 MG/2 ML SDV IV PRN (12:18)
[2019-09-20] MEDS ORDERED: OXYCODONE-ACETAMINOPHEN 5-325 MG TABLET PO PRN (12:18)
[2019-09-20] MEDS ORDERED: DEXTROSE 5%-1/2 NORMAL SALINE 1,000 ML IV PRN (12:22)
--- NOTE | 2019-09-20 12:27 | PDOC H&P ---
History of Present Illness Admission Date/PCP: 09/20/2019 KAILA GARLAND MD Patient complains of: Confusion History of Present Illness: MICHELLE HAYDEN is a 89 year old female who was found to have a blood sugar 41 in the field and brought into the ER. Patient was given orange juice and crackers and a blood sugar is now appropriate. Patient is awake and verbalizing at this time. No other treatment prior to arrival no true aggravating factors other than insulin therapy Past Medical History Cardiac Medical History: Reports: Atrial Fibrillation, Congestive Heart Failure, Coronary Artery Disease, Hyperlipidema, Hypertension Denies: Myocardial Infarction Pulmonary Medical History: Reports: Asthma - sob with exertion, Chronic Obstructive Pulmonary Disease (COPD), Respiratory Failure - Home O2 dependent Denies: Bronchitis, Pneumonia, Tuberculosis Neurological Medical History: Denies: Seizures Endocrine Medical History: Reports: Diabetes Mellitus Type 2 GI Medical History: Reports: Gastroesophageal Reflux Disease Musculoskeltal Medical History: Reports: Arthritis Psychiatric Medical History: Reports: Depression - anxiety Hematology: Reports: Anemia Infectious Medical History: Reports: Methicillin-Resistant Staph Aureus Past Surgical History Past Surgical History: Reports: Appendectomy, Cardiac Catheterization - x2, Cholecystectomy, Colostomy, Other Denies: Hysterectomy, Pacemaker Social History Information Source: Patient Lives with: Skilled Nursing Smoking Status: Never Smoker Electronic Cigarette use?: No Frequency of Alcohol Use: None Hx Recreational Drug Use: No Drugs: None Hx Prescription Drug Abuse: No - Advance Directive Resuscitation Status: Full Code Family History Family History: Hypertension Parental Family History Reviewed: Yes Children Family History Reviewed: Yes Sibling(s) Family History Reviewed.: Yes Medication/Allergy Home Medications: Acetaminophen [Tylenol 325 mg Tablet] 325 mg PO HSP PRN 09/13/19 Acetaminophen [Tylenol 650 mg Supp] 650 mg [place] Q4HP PRN 09/13/19 Apixaban [Eliquis 2.5 mg Tablet] 2.5 mg PO BID 09/13/19 Atorvastatin Calcium [Lipitor 40 mg Tablet] 40 mg PO DAILY 09/13/19 Carvedilol [Coreg 12.5 mg Tablet] 12.5 mg PO Q12 09/13/19 Duloxetine HCl [Cymbalta 20 mg Capsule.dr] 80 mg PO DAILY 09/13/19 Furosemide [Lasix 40 mg Tablet] 40 mg PO DAILY 09/13/19 Insulin Glargine,Hum.rec.anlog [Basaglar Kwikpen U-100] 20 unit SQ QHS 09/13/19 Insulin Lispro [Humalog Insulin (Lispro) 100 unit/mL] 0 unit SUBCUT .SLD SCALE 09/13/19 Ipratropium/Albuterol Sulfate [Duoneb 3 ml Ampul] 3 ml NEB RTQ8HP PRN 09/13/19 Isosorbide Mononitrate [Imdur 30 mg Tablet.er] 30 mg PO DAILY 09/13/19 Linagliptin [Tradjenta] 5 mg PO DAILY 09/13/19 Nystatin [Mycostatin Topical Powder 15 gm] 1 applic TP TID 09/13/19 Omeprazole 20 mg PO Q6AM 09/13/19 Oxycodone HCl [Oxy-Ir 5 mg Tablet] 5 mg PO Q12HP PRN 09/13/19 Pregabalin [Lyrica 50 mg Capsule] 50 mg PO BID 09/13/19 Meropenem [Merrem 1 gm Vial] 1 gm IV Q12 8 Days #16 vial 09/15/19 Allergies/Adverse Reactions: aspirin Allergy (Verified 11/24/16 02:04) dipyridamole [From Persantine] Allergy (Verified 11/24/16 02:04) nalbuphine [From Nubain] Allergy (Verified 11/24/16 02:04) Penicillins Allergy (Verified 11/24/16 02:04) Sulfa (Sulfonamide Antibiotics) Allergy (Verified 11/24/16 02:04) IVC dye Allergy (Uncoded 11/24/16 02:04) Review of Systems Constitutional: ABSENT: chills, fever(s), headache(s), weight gain, weight loss Eyes: ABSENT: visual disturbances Ears: ABSENT: hearing changes Cardiovascular: ABSENT: chest pain, dyspnea on exertion, edema, orthropnea, palpitations Respiratory: ABSENT: cough, hemoptysis Gastrointestinal: ABSENT: abdominal pain, constipation, diarrhea, hematemesis, hematochezia, nausea, vomiting Genitourinary: ABSENT: dysuria, hematuria Musculoskeletal: ABSENT: joint swelling Integumentary: ABSENT: rash, wounds Neurological: ABSENT: abnormal gait, abnormal speech, confusion, dizziness, focal weakness, syncope Psychiatric: ABSENT: anxiety, depression, homidical ideation, suicidal ideation Endocrine: ABSENT: cold intolerance, heat intolerance, polydipsia, polyuria Hematologic/Lymphatic: ABSENT: easy bleeding, easy bruising Physical Exam Vital Signs: Temp Pulse Resp BP Pulse Ox 97.4 F 87 22 H 89/36 L 100 09/20/19 09:43 09/20/19 09:43 09/20/19 12:03 09/20/19 12:03 09/20/19 09:48 Intake & Output 09/19/19 09/20/19 09/21/19 06:59 06:59 06:59 Intake Total 500 Balance 500 Weight 88.1 kg General appearance: PRESENT: no acute distress, well-developed, well-nourished Head exam: PRESENT: atraumatic, normocephalic Eye exam: PRESENT: conjunctiva pink, EOMI, PERRLA. ABSENT: scleral icterus Ear exam: PRESENT: normal external ear exam Mouth exam: PRESENT: moist, tongue midline Neck exam: ABSENT: carotid bruit, JVD, lymphadenopathy, thyromegaly Respiratory exam: PRESENT: clear to auscultation wei. ABSENT: rales, rhonchi, wheezes Cardiovascular exam: PRESENT: RRR. ABSENT: diastolic murmur, rubs, systolic murmur Pulses: PRESENT: normal dorsalis pedis pul Vascular exam: PRESENT: normal capillary refill GI/Abdominal exam: PRESENT: normal bowel sounds, soft. ABSENT: distended, guarding, mass, organolmegaly, rebound, tenderness Rectal exam: PRESENT: deferred Extremities exam: PRESENT: full ROM. ABSENT: calf tenderness, clubbing, pedal edema Neurological exam: PRESENT: alert, awake, oriented to person, oriented to place, oriented to time, oriented to situation, CN II-XII grossly intact. ABSENT: motor sensory deficit Psychiatric exam: PRESENT: appropriate affect, normal mood. ABSENT: homicidal ideation, suicidal ideation Skin exam: PRESENT: dry, intact, warm. ABSENT: cyanosis, rash Results Laboratory Results: 09/20/19 10:05 09/20/19 10:05 09/20/19 09/20/19 09/20/19 10:05 10:05 10:05 WBC 7.3 RBC 3.64 L Hgb 11.4 L Hct 33.9 L MCV 93 MCH 31.3 MCHC 33.7 RDW 14.9 H Plt Count 197 Seg Neutrophils % 67.9 Sodium 139.9 Potassium 3.7 Chloride 95 L Carbon Dioxide 39 H Anion Gap 6 BUN 19 Creatinine 0.90 Est GFR ( Amer) > 60 Glucose 71 L Lactic Acid 0.8 Calcium 8.1 L Magnesium 1.6 Total Bilirubin 0.6 AST 21 Alkaline Phosphatase 90 Total Protein 5.7 L Albumin 2.8 L Assessment and Plan - Diagnosis (1) Hypoglycemia Is this a current diagnosis for this admission?: Yes Plan: 09/20/2019-admit to [facility]. Monitor overnight. D5 one half normal saline at 75 mL an hour Accu-Chek blood sugars every 4 hours. Hold all insulin therapy (2) Altered mental status Qualifiers: Is this a current diagnosis for this admission?: Yes Plan: 09/20/2019-most likely related to hypoglycemia will follow. Patient is clear at this time (3) Anemia Is this a current diagnosis for this admission?: Yes Plan: 09/20/2019-chronic stable. - Time Time Spent with patient: 35 or more minutes
[2019-09-20 13:13] LABS: APPEARANCE,URINE CLOUDY; BILIRUBIN,URINE NEGATIVE (NEGATIVE); COLOR,URINE AMBER; GLUCOSE, URINE 50 mg/dL (NEGATIVE); KETONES,URINE TRACE mg/dL (NEGATIVE); LEUKOCYTE ESTERASE,URINE LARGE (NEGATIVE); NITRITE,URINE NEGATIVE (NEGATIVE); PROTEIN,URINE 100 mg/dL (NEGATIVE); URINE SPECIFIC GRAVITY 1.017
[2019-09-20 15:47] VITALS: BP 137/65
== END 2019-09-20 15:38 | disposition home or self-care (01) ==
LOC: ER 09:33 → EH 12:30 → UNDOADMOB 12:30 → ER 15:38
DX: E86.0 Dehydration (principal); E11.649 Type 2 diabetes mellitus with hypoglycemia without coma; R41.82 Altered mental status, unspecified; Z79.899 Other long term (current) drug therapy; I48.91 Unspecified atrial fibrillation; I50.9 Heart failure, unspecified; I25.10 Atherosclerotic heart disease of native coronary artery without angina pectoris; I11.0 Hypertensive heart disease with heart failure; J44.9 Chronic obstructive pulmonary disease, unspecified
CPT/HCPCS: 36415; 82962; 83605; 83735; 85025; 85610; 85730; 80053; 81001; J7120; 51701; 96360; 99285

== ENCOUNTER 2020-04-29 06:57 | Inpatient (IN) | payer MEDICARE, BC, MEDICAID ==
[2020-04-29 07:46] LABS: APPEARANCE,URINE TURBID; BILIRUBIN,URINE SMALL (NEGATIVE); COLOR,URINE YELLOW; GLUCOSE, URINE NEGATIVE (NEGATIVE); KETONES,URINE TRACE mg/dL (NEGATIVE); LEUKOCYTE ESTERASE,URINE MODERATE (NEGATIVE); NITRITE,URINE NEGATIVE (NEGATIVE); PROTEIN,URINE 30 mg/dL (NEGATIVE); URINE SPECIFIC GRAVITY 1.023
--- NOTE | 2020-04-29 07:49 | ER Document Report ---
Entered by BRENDAN GUALLPA SCRIBE 04/29/20 0714 Acting as scribe for:JACOB GUAADRRAMA MD ED General - General Chief Complaint: Fall Injury Stated Complaint: FALL Time Seen by Provider: 04/29/20 07:03 Mode of Arrival: Medic Information source: Patient Notes: This 89 year old female patient with recurrent UTIs presents to the emergency department today from her residential with complaints of left lower leg pain resulting from a fall last night. Patient has bruising and swelling over the left proximal tibia and she cries out in pain when this area is palpated. Pat ient is more confused than baseline so it is difficult to obtain any history from her. TRAVEL OUTSIDE OF THE [place] IN LAST 30 DAYS: No - Related Data Allergies/Adverse Reactions: aspirin Allergy (Verified 11/24/16 02:04) dipyridamole [From Persantine] Allergy (Verified 11/24/16 02:04) nalbuphine [From Nubain] Allergy (Verified 11/24/16 02:04) Penicillins Allergy (Verified 11/24/16 02:04) Sulfa (Sulfonamide Antibiotics) Allergy (Verified 11/24/16 02:04) IVC dye Allergy (Uncoded 11/24/16 02:04) Past Medical History - General Information source: Patient - Social History Smoking Status: Never Smoker Cigarette use (# per day): No Chew tobacco use (# tins/day): No Frequency of alcohol use: None Drug Abuse: None Family History: Reviewed & Not Pertinent Patient has homicidal ideation: No - Past Medical History Cardiac Medical History: Reports: Hx Atrial Fibrillation, Hx Congestive Heart Failure, Hx Coronary Artery Disease, Hx Hypercholesterolemia, Hx Hypertension Pulmonary Medical History: Reports: Hx Asthma - sob with exertion, Hx COPD, Hx Respiratory Failure - Home O2 dependent Endocrine Medical History: Reports: Hx Diabetes Mellitus Type 2 GI Medical History: Reports: Hx Gastroesophageal Reflux Disease Musculoskeletal Medical History: Reports Hx Arthritis Psychiatric Medical History: Reports: Hx Depression - anxiety Infectious Medical History: Reports: Hx MRSA Past Surgical History: Reports: Hx Appendectomy, Hx Breast Surgery - L breast cycst removal, Hx Cardiac Catheterization - x2, Hx Cholecystectomy, Hx Colostomy, Hx Rectal Surgery - Colostomy, Other - Immunizations Hx Diphtheria, Pertussis, Tetanus Vaccination: Yes Review of Systems - Review of Systems -: Yes ROS unobtainable due to patient's medical condition - confused, demented Musculoskeletal: See HPI, Joint pain - left lower leg pain Physical Exam - Vital signs Vitals: BP Pulse Ox 82/56 L 94 04/29/20 07:01 04/29/20 07:01 - Notes Notes: Physical Exam: General: Alert, confused. HEENT: Normocephalic. Atraumatic. PERRL. Extraocular movements intact. Oropharynx clear. Neck: Supple. Non-tender. Respiratory: No respiratory distress. Clear and equal breath sounds bilaterally. Cardiovascular: Irregularly irregular, tachycardic. Abdominal: Obese. Non-tender. No distension. Normal Bowel Sounds. Back: No gross abnormalities. Extremities: Upper extremities: Normal inspection. Normal ROM. Lower extremities: Left proximal tibia is exquisitely tender with palpation with surrounding swelling, bruising, and firmness on palpation. Patient yells out in pain when this area is palpated. Neurological: Confused at baseline. Skin: Warm. Dry. Normal color. Course - Vital Signs Vital signs: Temp Pulse Resp BP Pulse Ox 97.3 F 90 14 94/29 L 97 04/29/20 15:26 04/29/20 15:26 04/29/20 15:26 04/29/20 15:52 04/29/20 15:26 - Laboratory Result Diagrams: 04/29/20 09:16 04/29/20 14:30 Laboratory results interpreted by me: 04/29/20 04/29/20 04/29/20 07:25 07:30 07:30 WBC 12.2 H RBC 3.15 L Hgb 9.6 L Hct 29.7 L RDW 16.1 H Lymph % (Auto) 10.5 L Absolute Neuts (auto) 9.8 H Seg Neutrophils % 80.3 H PT Chloride 88 L Carbon Dioxide 40 H* BUN 43 H Creatinine 2.17 H Est GFR ( Amer) 26 L Est GFR (MDRD) Non-Af 21 L Glucose 164 H Creatine Kinase 26 L NT-Pro-B Natriuret Pep Total Protein 6.0 L Albumin 3.1 L Urine Protein 30 H Urine Ketones TRACE H Urine Blood SMALL H Urine Bilirubin SMALL H Urine Urobilinogen 4.0 H Ur Leukocyte Esterase MODERATE H 04/29/20 04/29/20 07:30 07:30 WBC RBC Hgb Hct RDW Lymph % (Auto) Absolute Neuts (auto) Seg Neutrophils % PT 20.0 H Chloride Carbon Dioxide BUN Creatinine Est GFR ( Amer) Est GFR (MDRD) Non-Af Glucose Creatine Kinase NT-Pro-B Natriuret Pep 54940 H Total Protein Albumin Urine Protein Urine Ketones Urine Blood Urine Bilirubin Urine Urobilinogen Ur Leukocyte Esterase - Diagnostic Test Radiology reviewed: Image reviewed, Reports reviewed - CT head chronic microvascular ischemic changes nothing acute. Knee and tibia x-rays show transverse fracture through the proximal tibia and fibula just below the knee joint on the left. Chest x-ray shows trace right pleural effusion with fluid in the major fissure. - EKG Interpretation by Wy EKG shows normal: [place], Intervals, QRS Complexes, ST-T Waves Rate: Tachycardia - 113 Rhythm: A.Fib Voltage: Decreased voltage When compared to previous EKG there are: No significant change - Consults Susana Gomez NP Time consulted: 08:18 Consulted provider: will come to ER Critical Care Note - Critical Care Note Total time excluding time spent on procedures (mins): 40 Comments: At least 40 minutes spent evaluating the patient, reviewing records, starting treatment for hypotension and possible urosepsis. Re-evaluations of response to treatments. Phone calls to consultants. Discharge - Discharge Clinical Impression: Chronic atrial fibrillation, Altered mental status, Diabetes, UTI (urinary tract infection), bacterial, Tibia upper end fracture, Hypotension, Dehydration Condition: Serious Disposition: ADMITTED INPATIENT Admitting Provider: Jeet (Hospitalist) - Susana Gomez LATH HAND will see the patient and write orders. Unit Admitted: IMCU I personally performed the services described in the documentation, reviewed and edited the documentation which was dictated to the scribe in my presence, and it accurately records my words and actions.
[2020-04-29 07:55] LABS: ABSOLUTE BASOPHILS # (AUTO) 0.1 10^3/uL (0.0-0.2); ABSOLUTE LYMPHOCYTES (AUTO) 1.3 10^3/uL (0.5-4.7); ABSOLUTE MONOCYTES (AUTO) 1.1 10^3/uL (0.1-1.4); ABSOLUTE NEUT (AUTO) 9.8 10^3/uL (1.7-8.2); BASOPHILS % (AUTO) 0.4 % (0-2); EOSINOPHILS % (AUTO) 0.1 % (0-6); HEMATOCRIT 29.7 % (36.0-47.0); HEMOGLOBIN 9.6 g/dL (12.0-15.5); LYMPHOCYTES % (AUTO) 10.5 % (13-45); MEAN CORPUSCULAR HEMOGLOBIN 30.4 pg (27.0-33.4); MEAN CORPUSCULAR HGB CONC 32.2 g/dL (32.0-36.0); MEAN CORPUSCULAR VOLUME 94 fl (80-97); MONOCYTES % (AUTO) 8.7 % (3-13); PLATELET COUNT 174 10^3/uL (150-450); RED BLOOD COUNT 3.15 10^6/uL (3.72-5.28); RED CELL DISTRIBUTION WIDTH 16.1 % (11.5-14.0); SEGMENTED NEUTROPHILS % (AUTO) 80.3 % (42-78); TOTAL CELLS COUNTED % (AUTO) 100 %; WHITE BLOOD COUNT 12.2 10^3/uL (4.0-10.5)
[2020-04-29] MEDS ORDERED: NORMAL SALINE 1000 ML 1,000 ML IV ONE ×4 (08:10→14:30)
[2020-04-29] MEDS ORDERED: MEROPENEM 1 GM VIAL IV ONE (08:12)
[2020-04-29 08:15] LABS: ALBUMIN 3.1 g/dL (3.5-5.0); ALKALINE PHOSPHATASE 71 U/L (38-126); ASPARTATE AMINO TRANSFERASE 22 U/L (14-36); BILIRUBIN,DIRECT 0.4 mg/dL (0.0-0.4); BILIRUBIN,TOTAL 1.2 mg/dL (0.2-1.3); BLOOD UREA NITROGEN 43 mg/dL (7-20); CALCIUM 8.4 mg/dL (8.4-10.2); CHLORIDE 88 mmol/L (98-107); CREATINE KINASE 26 U/L (30-135); GLUCOSE 164 mg/dL (75-110); POTASSIUM 4.9 mmol/L (3.6-5.0)
[2020-04-29 08:21] LABS: ANION GAP 10 (5-19)
[2020-04-29 08:23] LABS: CARBON DIOXIDE 40 mmol/L (22-30)
--- NOTE | 2020-04-29 08:24 | RADIOLOGY REPORT (SQ) ---
EXAM DESCRIPTION: CT HEAD WITHOUT IMAGES COMPLETED DATE/TIME: 04/29/2020 8:10 am REASON FOR STUDY: fall, confusion, on Eliquis COMPARISON: 09/13/2019 TECHNIQUE: Axial images acquired through the brain without intravenous contrast. Images reviewed wi th bone, brain and subdural windows. Images stored on PACS. All CT scanners at this facility use dose modulation, iterative reconstruction, and/or weight based d osing when appropriate to reduce radiation dose to as low as reasonably achievable (ALARA). [facility]: Dose Right [facility]: CareDose [facility]: Dose Right [facility]: Teradose 4D [facility]: [employer] RADIATION DOSE: CT Rad equipment meets quality standard of care and radiation dose reduction techniq ues were employed. CTDIvol: 53.2 mGy. DLP: 1097 mGy-cm. mGy. LIMITATIONS: None. FINDINGS: VENTRICLES: Prominent. CEREBRUM: No masses. No hemorrhage. No midline shift. Areas of low density in the white matter mos t likely due to chronic micro-vascular ischemic change. No evidence for acute infarction. CEREBELLUM: No masses. No hemorrhage. No alteration of density. No evidence for acute infarction. EXTRAAXIAL SPACES: Mild age-related involutional change. No fluid collections. No masses. ORBITS AND GLOBE: No intra- or extraconal masses. Normal contour of globe without masses. CALVARIUM: No fracture. PARANASAL SINUSES: No fluid or mucosal thickening. SOFT TISSUES: No mass or hematoma. OTHER: No other significant finding. IMPRESSION: MILD CHRONIC CHANGES OF ATROPHY AND MICROVASCULAR ISCHEMIA. NO ACUTE PROCESS. EVIDENCE OF ACUTE STROKE: NO. TECHNICAL DOCUMENTATION: JOB ID: [id number] Quality ID # [id number]: Final reports with documentation of one or more dose reduction techniques (e.g., Au tomated exposure control, adjustment of the mA and/or kV according to patient size, use of iterative reconstruction technique) 2010 [employer]- All Rights Reserved Reading location - IP/workstation name: [email or web address]
[2020-04-29 08:25] LABS: INTERNATIONAL RATION (INR) 1.68
--- NOTE | 2020-04-29 08:26 | RADIOLOGY REPORT (SQ) ---
EXAM DESCRIPTION: KNEE LEFT 3 VIEWS IMAGES COMPLETED DATE/TIME: 04/29/2020 7:59 am REASON FOR STUDY: fall, prox leg swelling, pain COMPARISON: None. NUMBER OF VIEWS: Two views. TECHNIQUE: AP and lateral radiographic images acquired of the left knee. LIMITATIONS: None. FINDINGS: MINERALIZATION: Osteopenia. BONES: Nondisplaced fractures of the proximal tibial diaphysis and fibular head. JOINT: No effusion. SOFT TISSUES: No foreign body. OTHER: No other significant finding. IMPRESSION: Fractures proximal tibia and fibula. TECHNICAL DOCUMENTATION: JOB ID: [id number] 2010 [employer]- All Rights Reserved Reading location - IP/workstation name: [email or web address]
--- NOTE | 2020-04-29 08:31 | RADIOLOGY REPORT (SQ) ---
EXAM DESCRIPTION: TIBIA FIBULA LEFT IMAGES COMPLETED DATE/TIME: 04/29/2020 8:00 am REASON FOR STUDY: fall, prox leg swelling, pain COMPARISON: None. NUMBER OF VIEWS: Two views. TECHNIQUE: Two radiographic images acquired of the left tibia and fibula to include the knee and ank le in at least one projection. LIMITATIONS: None. FINDINGS: MINERALIZATION: Osteopenia. BONES: Nondisplaced fractures of the proximal tibial diaphysis and fibular head. SOFT TISSUES: No foreign body. OTHER: No other significant finding. IMPRESSION: Fractures of the proximal tibia and fibula. TECHNICAL DOCUMENTATION: JOB ID: [id number] 2010 [employer]- All Rights Reserved Reading location - IP/workstation name: [email or web address]
--- NOTE | 2020-04-29 08:32 | RADIOLOGY REPORT (SQ) ---
EXAM DESCRIPTION: CHEST SINGLE VIEW IMAGES COMPLETED DATE/TIME: 04/29/2020 8:00 am REASON FOR STUDY: fall, confusion COMPARISON: 09/13/2019 NUMBER OF VIEWS: One view. TECHNIQUE: Single frontal radiographic image of the chest acquired. LIMITATIONS: None. FINDINGS: LUNGS AND PLEURA: Small right pleural effusion. Left lung is clear. MEDIASTINUM AND HEART: Stable heart size and mediastinal structures. BONY STRUCTURES: No acute findings. HARDWARE: None. OTHER: No other significant finding. IMPRESSION: Small right pleural effusion. TECHNICAL DOCUMENTATION: JOB ID: [id number] Reading location - IP/workstation name: [email or web address]
--- NOTE | 2020-04-29 08:43 | EKG REPORT ---
SEVERITY:- ABNORMAL ECG - ATRIAL FIBRILLATION, V-RATE 84-160 LOW VOLTAGE IN FRONTAL LEADS : Confirmed by: Roland Samuels MD 29-Apr-2020 08:43:01
[2020-04-29] MEDS ORDERED: MAG HYDROX/AL HYDROX/SIMETH SUSP 30 ML UDCUP PO PRN (08:53)
[2020-04-29] MEDS ORDERED: PROMETHAZINE HCL INJ 25 MG/1 ML VIAL IV PRN (08:53)
[2020-04-29] MEDS ORDERED: ONDANSETRON HCL INJ/PF 4 MG/2 ML SDV IV PRN (08:53)
[2020-04-29] MEDS ORDERED: ALBUTEROL SULFATE 0.083% NEB 2.5 MG/3 ML AMPUL NEB PRN (08:53)
[2020-04-29] MEDS ORDERED: MAGNESIUM HYDROXIDE SUSP 30 ML UDCUP PO PRN (08:53)
[2020-04-29] MEDS ORDERED: ACETAMINOPHEN 325 MG TABLET PO PRN (08:53)
[2020-04-29] MEDS ORDERED: DEXTROSE 40% GEL 15 GM TUBE PO PRN ×2 (08:59)
[2020-04-29] MEDS ORDERED: GLUCAGON,HUMAN RECOMB 1 MG INJ IM PRN (08:59)
[2020-04-29] MEDS ORDERED: DEXTROSE 50%-WATER 25 GM/50 ML DISP.SYRIN IV PRN ×2 (08:59)
[2020-04-29] MEDS ORDERED: NORMAL SALINE 1000 ML 1,000 ML IV PRN (09:00)
[2020-04-29] MEDS ORDERED: HEPARIN SODIUM,PORCINE/D5W 25,000 UNIT/250 ML RTUINJ IV PRN (09:06)
[2020-04-29] MEDS ORDERED: HEPARIN SOD (PORCINE) 1,000 UNIT/ML 10 ML VIAL IV ONE ×2 (09:06→11:30)
--- NOTE | 2020-04-29 09:17 | PDOC H&P ---
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 She is also been noted to have a fever; reportedly 102 at SNF. Recently diagnosed with UTI but not started on antibiotics. Evaluation in the emergency department revealed sepsis with Tachycardia (HR 118), hypotension (82/56), tachypnea (24), leukocytosis (WBC is 12.2), anemia (hemoglobin 9.6 decreased from baseline of 11) especially elevated PT/INR re lated to Eliquis, acute kidney injury (CR 2.17/BUN 43 CR 1.2 bicarbonate 40, determinate elevated troponin at 0 Valerie and urinalysis positive for UTI. Head CT is benign. Chest x-ray shows a small right pleural effusion. Tib-fib x-ray shows fracture of the proximal tibia and fibula. She is referred to the hospitalist service for admission and management of the above-stated complaints and findings. Past Medical History Cardiac Medical History: Reports: Atrial Fibrillation, Congestive Heart Failure, Coronary Artery Disease, Hyperlipidema, Hypertension Denies: Myocardial Infarction Pulmonary Medical History: Reports: Chronic Obstructive Pulmonary Disease (COPD), Respiratory Failure - Home O2 dependent Denies: Bronchitis, Pneumonia, Tuberculosis Neurological Medical History: Denies: Ischemic CVA, Seizures Endocrine Medical History: Reports: Diabetes Mellitus Type 2 Renal/ Medical History: Reports: Chronic Kidney Disease GI Medical History: Reports: Gastroesophageal Reflux Disease Musculoskeltal Medical History: Reports: Arthritis Psychiatric Medical History: Reports: Dementia, Depression - anxiety Hematology: Reports: Anemia Infectious Medical History: Reports: Methicillin-Resistant Staph Aureus, Other Past Surgical History Past Surgical History: Reports: Appendectomy, Cardiac Catheterization - x2, Cholecystectomy, Colostomy, Other Denies: Hysterectomy, Pacemaker Social History Information Source: [facility] Records, Outside Facility Records Lives with: Assisted Smoking Status: Never Smoker Electronic Cigarette use?: No Frequency of Alcohol Use: None Hx Recreational Drug Use: No Drugs: None Hx Prescription Drug Abuse: No - Advance Directive Resuscitation Status: Do Not Resuscitate Family History Family History: Reviewed & Not Pertinent Parental Family History Reviewed: No - Unavailable due to altered mental status Children Family History Reviewed: No Sibling(s) Family History Reviewed.: No Medication/Allergy Home Medications: Acetaminophen [Tylenol 325 mg Tablet] 325 mg PO HSP PRN 09/13/19 Acetaminophen [Tylenol 650 mg Supp] 650 mg MA Q4HP PRN 09/13/19 Apixaban [Eliquis 2.5 mg Tablet] 2.5 mg PO BID 09/13/19 Atorvastatin Calcium [Lipitor 40 mg Tablet] 40 mg PO DAILY 09/13/19 Carvedilol [Coreg 12.5 mg Tablet] 12.5 mg PO Q12 09/13/19 Duloxetine HCl [Cymbalta 20 mg Capsule.dr] 80 mg PO DAILY 09/13/19 Furosemide [Lasix 40 mg Tablet] 40 mg PO DAILY 09/13/19 Insulin Glargine,Hum.rec.anlog [Basaglar Kwikpen U-100] 20 unit SQ QHS 09/13/19 Insulin Lispro [Humalog Insulin (Lispro) 100 unit/mL] 0 unit SUBCUT .SLD SCALE 09/13/19 Ipratropium/Albuterol Sulfate [Duoneb 3 ml Ampul] 3 ml NEB RTQ8HP PRN 09/13/19 Isosorbide Mononitrate [Imdur 30 mg Tablet.er] 30 mg PO DAILY 09/13/19 Linagliptin [Tradjenta] 5 mg PO DAILY 09/13/19 Nystatin [Mycostatin Topical Powder 15 gm] 1 applic TP TID 09/13/19 Omeprazole 20 mg PO Q6AM 09/13/19 Oxycodone HCl [Oxy-Ir 5 mg Tablet] 5 mg PO Q12HP PRN 09/13/19 Pregabalin [Lyrica 50 mg Capsule] 50 mg PO BID 09/13/19 Meropenem [Merrem 1 gm Vial] 1 gm IV Q12 8 Days #16 vial 09/15/19 Allergies/Adverse Reactions: aspirin Allergy (Verified 11/24/16 02:04) dipyridamole [From Persantine] Allergy (Verified 11/24/16 02:04) nalbuphine [From Nubain] Allergy (Verified 11/24/16 02:04) Penicillins Allergy (Verified 11/24/16 02:04) Sulfa (Sulfonamide Antibiotics) Allergy (Verified 11/24/16 02:04) IVC dye Allergy (Uncoded 11/24/16 02:04) Review of Systems ROS unobtainable: Due to mental status Physical Exam Vital Signs: Temp Pulse Resp BP Pulse Ox 97.1 F 118 H 24 H 82/56 L 97 04/29/20 07:12 04/29/20 07:12 04/29/20 07:12 04/29/20 07:12 04/29/20 07:12 Intake & Output 04/28/20 04/29/20 04/30/20 06:59 06:59 06:59 Weight 87 kg General appearance: PRESENT: mild distress, well-developed, well-nourished Head exam: PRESENT: atraumatic, normocephalic Eye exam: PRESENT: conjunctiva pink, EOMI, PERRLA. ABSENT: scleral icterus Mouth exam: PRESENT: dry mucosa, tongue midline Neck exam: ABSENT: carotid bruit, JVD, lymphadenopathy, thyromegaly Respiratory exam: PRESENT: clear to auscultation wei, decreased breath sounds, symmetrical, unlabored, other - Supplemental oxygen by nasal cannula. ABSENT: rales, rhonchi, wheezes Cardiovascular exam: PRESENT: RRR. ABSENT: diastolic murmur, rubs, systolic murmur Pulses: PRESENT: +1 pedal pulses bilateral - Trace bilaterally Vascular exam: PRESENT: pallor GI/Abdominal exam: PRESENT: normal bowel sounds, soft. ABSENT: distended, guarding, mass, organolmegaly, rebound, tenderness Rectal exam: PRESENT: deferred Extremities exam: PRESENT: tenderness - Left knee;knee immobilizer in place. ABSENT: calf tenderness, clubbing, pedal edema Neurological exam: PRESENT: CN II-XII grossly intact, other - Arousable to voice; does not make eye contact, answer questions, follow directions. ABSENT: motor sensory deficit Skin exam: PRESENT: dry, intact, warm. ABSENT: cyanosis, rash Results Laboratory Results: 04/29/20 07:30 04/29/20 07:30 04/29/20 04/29/20 04/29/20 07:25 07:30 07:30 WBC 12.2 H RBC 3.15 L Hgb 9.6 L Hct 29.7 L MCV 94 MCH 30.4 MCHC 32.2 RDW 16.1 H Plt Count 174 Seg Neutrophils % 80.3 H Sodium 138.3 Potassium 4.9 Chloride 88 L Carbon Dioxide 40 H* Anion Gap 10 BUN 43 H Creatinine 2.17 H Est GFR ( Amer) 26 L Glucose 164 H Lactic Acid Calcium 8.4 Total Bilirubin 1.2 AST 22 Alkaline Phosphatase 71 Total Protein 6.0 L Albumin 3.1 L Urine Color YELLOW Urine Appearance TURBID Urine pH 5.0 Ur Specific [place] 1.023 Urine Protein 30 H Urine Glucose (UA) NEGATIVE Urine Ketones TRACE H Urine Blood SMALL H Urine Nitrite NEGATIVE Ur Leukocyte Esterase MODERATE H Urine WBC (Auto) 142 Urine RBC (Auto) 45 04/29/20 07:30 WBC RBC Hgb Hct MCV MCH MCHC RDW Plt Count Seg Neutrophils % Sodium Potassium Chloride Carbon Dioxide Anion Gap BUN Creatinine Est GFR ( Amer) Glucose Lactic Acid 2.0 Calcium Total Bilirubin AST Alkaline Phosphatase Total Protein Albumin Urine Color Urine Appearance Urine pH Ur Specific [place] Urine Protein Urine Glucose (UA) Urine Ketones Urine Blood Urine Nitrite Ur Leukocyte Esterase Urine WBC (Auto) Urine RBC (Auto) 04/29/20 04/29/20 04/29/20 07:30 07:30 07:30 Creatine Kinase 26 L Troponin I 0.036 NT-Pro-B Natriuret Pep 85286 H Impressions: Knee X-Ray 04/29/20 07:14 IMPRESSION: Fractures proximal tibia and fibula. Tibia/Fibula X-Ray 04/29/20 07:14 IMPRESSION: Fractures of the proximal tibia and fibula. Chest X-Ray 04/29/20 07:16 IMPRESSION: Small right pleural effusion. Head CT 04/29/20 07:16 IMPRESSION: MILD CHRONIC CHANGES OF ATROPHY AND MICROVASCULAR ISCHEMIA. NO ACUTE PROCESS. EVIDENCE OF ACUTE STROKE: NO. Assessment and Plan - Diagnosis (1) Sepsis Qualifiers: Sepsis type: sepsis due to unspecified organism Sepsis acute organ dysfunction status: with acute organ dysfunction Severe sepsis acute organ dysfunction type: acute renal failure Severe sepsis shock status: without septic shock Is this a current diagnosis for this admission?: Yes Plan: Sepsis due to UTI, present on admission, evidenced by fever, tachycardia, tachypnea, hypotension, leukocytosis, acute on chronic renal injury, encephalop athy, and UTI by urinalysis. Blood and urine cultures pending. We will provide IV fluid resuscitation followed by maintenance fluids as dictated by fluid volume status. She is empirically placed on meropenem after review of prior culture results. She is admitted to [facility] on continuous cardiac telemetry. (2) UTI (urinary tract infection), bacterial Is this a current diagnosis for this admission?: Yes Plan: Urinalysis reveals UTI. Blood and urine cultures pending. Previous history of ESBL coli with infectious disease consultation recommending meropenem. Empirically placed on IV meropenem; access cultures result. Continue IV fluids. (3) Tibia/fibula fracture Qualifiers: Encounter type: initial encounter Fracture type: closed Laterality: left Qualified Code(s): S82.202A - Unspecified fracture of shaft of left tibia, initial encounter for closed fracture; S82.402A - Unspecified fracture of shaft of left fibula, initial encounter for closed fracture Is this a current diagnosis for this admission?: Yes Plan: Left proximal tib-fib fracture noted imaging. Following mechanical fall at home. Orthopedics is consulted; defer management per their expertise. Analgesics as needed. Knee immobilizer in place. Patient will be placed on a heparin drip pending orthopedic evaluation/surgical clearance. (4) Acute kidney injury superimposed on CKD Is this a current diagnosis for this admission?: Yes Plan: Secondary to #1 and 2. Parry catheter placed for strict I&O's. Fluid resuscitation per sepsis protocol followed by IV fluids. Encourage p.o. fluids. Avoid nephrotoxic medications were able. Follow-up chemistry. (5) Acute metabolic encephalopathy Is this a current diagnosis for this admission?: Yes Plan: Secondary to sepsis, UTI, acute on chronic renal insufficiency, dehydration, pain, and analgesic medications. Evaluation management as above. Supportive care. (6) Chronic atrial fibrillation Is this a current diagnosis for this admission?: Yes Plan: Currently hypotensive; will resume antihypertensive/rate controlling medications as blood pressure allows. She is mildly tachycardic at 113 on admission; likely due to sepsis/dehydration and pain. Holding Eliquis pending orthopedic evaluation/surgical clearance. Will place on heparin drip. (7) Diabetes Qualifiers: Diabetes mellitus type: type 2 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 Is this a current diagnosis for this admission?: Yes Plan: Holding oral medications while admitted. Patient is placed on a consistent carb diet. Accu-Cheks before meals and at bedtime with Humalog for sliding scale coverage. Hypoglycemia protocol in place. (8) Dehydration Is this a current diagnosis for this admission?: Yes Plan: Secondary to #1 and 2. Continue IV fluids. Encourage p.o. fluids. - Time Time Spent with patient: 35 or more minutes Medications reviewed and adjusted accordingly: Yes Anticipated discharge: SNF Within: Other - Inpatient Certification Based on my medical assessment, after consideration of the patient's shireen rbidities, presenting symptoms, or acuity I expect that the services needed warrant INPATIENT care.: Yes I certify that my determination is in accordance with my understanding of Medicare's requirements for reasonable and necessary INPATIENT services [42 CFR 412.3e].: Yes Medical Necessity: Need For IV Fluids, Need For Continuous Telemetry Monitoring, Need for Pain Control, Need for IV Antibiotics, Risk of Complication if Not Cared For in Hospital, Risk of Diagnosis Which Will Require Inpatient Eval/Care/Monitoring
[2020-04-29 09:33] LABS: ABSOLUTE BASOPHILS # (AUTO) 0.1 10^3/uL (0.0-0.2); ABSOLUTE EOSINOPHILS # (AUTO) 0.1 10^3/uL (0.0-0.6); ABSOLUTE LYMPHOCYTES (AUTO) 1.2 10^3/uL (0.5-4.7); ABSOLUTE NEUT (AUTO) 8.5 10^3/uL (1.7-8.2); BASOPHILS % (AUTO) 0.8 % (0-2); EOSINOPHILS % (AUTO) 0.5 % (0-6); HEMATOCRIT 27.9 % (36.0-47.0); HEMOGLOBIN 9.1 g/dL (12.0-15.5); LYMPHOCYTES % (AUTO) 10.8 % (13-45); MEAN CORPUSCULAR HEMOGLOBIN 30.6 pg (27.0-33.4); MEAN CORPUSCULAR HGB CONC 32.6 g/dL (32.0-36.0); MEAN CORPUSCULAR VOLUME 94 fl (80-97); PLATELET COUNT 145 10^3/uL (150-450); RED BLOOD COUNT 2.97 10^6/uL (3.72-5.28); RED CELL DISTRIBUTION WIDTH 16.1 % (11.5-14.0); SEGMENTED NEUTROPHILS % (AUTO) 78.9 % (42-78); TOTAL CELLS COUNTED % (AUTO) 100 %; WHITE BLOOD COUNT 10.8 10^3/uL (4.0-10.5)
[2020-04-29 09:36] LABS: INTERNATIONAL RATION (INR) 1.72; PROTHROMBIN TIME 20.4 SEC (11.4-15.4)
[2020-04-29 09:37] LABS: PARTIAL THROMBOPLASTIN TIME 41.1 SEC (23.5-35.8)
[2020-04-29] MEDS ORDERED: APIXABAN 2.5 MG TABLET PO SCH (10:00)
[2020-04-29] MEDS: PREGABALIN 50 MG CAPSULE PO SCH ×2 (11:13→21:11)
[2020-04-29] MEDS: DOCUSATE SODIUM 100 MG CAPSULE PO SCH ×2 (11:13→18:01)
[2020-04-29] MEDS: INSULIN LISPRO 100 UNIT/ML 3 ML VIAL SUBCUT SCH ×2 (11:45→16:18)
[2020-04-29] MEDS ORDERED: HEPARIN SOD (PORCINE) 1,000 UNIT/ML 10 ML VIAL IV PRN (12:06)
[2020-04-29 13:02] LABS: APPEARANCE,URINE TURBID; BILIRUBIN,URINE SMALL (NEGATIVE); COLOR,URINE YELLOW; GLUCOSE, URINE NEGATIVE (NEGATIVE); KETONES,URINE TRACE mg/dL (NEGATIVE); LEUKOCYTE ESTERASE,URINE MODERATE (NEGATIVE); NITRITE,URINE NEGATIVE (NEGATIVE); PROTEIN,URINE 100 mg/dL (NEGATIVE); URINE SPECIFIC GRAVITY 1.028
[2020-04-29] MEDS ORDERED: MEROPENEM 1 GM in NORMAL SALINE 50 ML IV SCH ×2 (14:00→22:00)
[2020-04-29 15:10] LABS: ANION GAP 7 (5-19); BLOOD UREA NITROGEN 38 mg/dL (7-20); CALCIUM 7.2 mg/dL (8.4-10.2); CARBON DIOXIDE 35 mmol/L (22-30); CHLORIDE 98 mmol/L (98-107); GLUCOSE 145 mg/dL (75-110); POTASSIUM 4.3 mmol/L (3.6-5.0)
--- NOTE | 2020-04-29 16:55 | ADVANCED CARE ---
- Diagnosis (1) Sepsis Diagnosis Current: Yes (2) UTI (urinary tract infection), bacterial Diagnosis Current: Yes (3) Tibia/fibula fracture Diagnosis Current: Yes (4) Acute kidney injury superimposed on CKD Diagnosis Current: Yes (5) Acute metabolic encephalopathy Diagnosis Current: Yes (6) Chronic atrial fibrillation Diagnosis Current: Yes (7) Diabetes Diagnosis Current: Yes (8) Dehydration Diagnosis Current: Yes Attendance: The patient's daughter, Troy Toledo, by phone. [phone] Resuscitation Status: Do Not Resuscitate Discussion: Discussed the patient's chronic medical conditions, current acute illness, vital signs and laboratory findings, clinical status, and plan of care. I reviewed with the patient's daughter that despite 4 L of IV fluids, the patient was continued to have hypotension and poor urinary output. We discussed that the neck steps for managing her sepsis would be a discussion with the grounds caretaker regarding upgrade to the ICU for pressor support. The patient's daughter confirms that the patient is a DNR/DNI. She tells me that in their most recent conversation, the patient had indicated that she was ready to pass away; "hope that [facility] is ready to take me home soon." Patient's daughter states that she is feeling quite torn; wishes to respect her mother's wishes, but also hopeful that she could recover as she has had sepsis related to urinary tract infections in the recent past. Notably, the patient's daughter is also grieving the recent of her (patient's son-in-law) who approximately 2 weeks ago of liver failure. The daughter asks us to continue medical interventions as they currently stand (IV fluids, antibiotics) but to not escalate her care at this time. She is calling her son and will be in shortly to see her mother and will discuss with us at that time her decisions regarding goals of care. She does suggest that she is leaning towards comfort care only. Care Planning Goals: DNR/DNI Continue IVF and Antibiotics. Do NOT upgrade to ICU or start pressors. Palliative care/Hospice consultations. Time Spent: 30 min
[2020-04-29] MEDS ORDERED: KETOROLAC TROMETHAMINE INJ/PF 30 MG/1 ML SDV IV ONE (17:11)
[2020-04-29] MEDS ORDERED: KETOROLAC TROMETHAMINE INJ/PF 30 MG/1 ML SDV IV PRN (17:11)
[2020-04-29] MEDS ORDERED: LIDOCAINE 5% (700 MG) TRANSDERMAL ADH..PATCH ONE (18:01)
[2020-04-29] MEDS ORDERED: ACETAMINOPHEN 2,000 MG/200 ML RTUPB IV ONE (18:03)
[2020-04-29] MEDS ORDERED: FENTANYL CITRATE INJ/PF 100 MCG/2 ML AMPUL IV PRN (18:03)
[2020-04-29] MEDS ORDERED: ACETAMINOPHEN 1,000 MG/100 ML RTUPB IV ONE (18:07)
[2020-04-29] MEDS: LIDOCAINE 5% (700 MG) TRANSDERMAL ADH..PATCH TP SCH (18:23)
[2020-04-29] MEDS: ACETAMINOPHEN 1,000 MG/100 ML RTUPB IV SCH (18:48)
[2020-04-29] MEDS ORDERED: IPRATROPIUM/ALBUTEROL 0.5-2.5 MG/3 ML AMPUL NEB SCH (20:00)
[2020-04-29] MEDS ORDERED: MORPHINE SULFATE 10 MG/ML INJ IV PRN (20:10)
[2020-04-29] MEDS: FENTANYL CITRATE INJ/PF 100 MCG/2 ML AMPUL IV PRN (22:35)
[2020-04-30] MEDS: ACETAMINOPHEN 1,000 MG/100 ML RTUPB IV SCH ×3 (00:30→12:27)
[2020-04-30] MEDS: KETOROLAC TROMETHAMINE INJ/PF 30 MG/1 ML SDV IV PRN ×2 (02:47→09:46)
[2020-04-30 08:18] VITALS: BP 97/36
[2020-04-30] MEDS: FENTANYL CITRATE INJ/PF 100 MCG/2 ML AMPUL IV PRN (08:18)
[2020-04-30] MEDS ORDERED: ATROPINE SULFATE 1% OPH SOLN 5 ML BOTTLE SL PRN (09:08)
[2020-04-30] MEDS: DOCUSATE SODIUM 100 MG CAPSULE PO SCH (09:34)
[2020-04-30] MEDS: PREGABALIN 50 MG CAPSULE PO SCH (09:34)
[2020-04-30] MEDS: MORPHINE SULFATE 10 MG/ML INJ IV PRN ×2 (09:47→11:45)
[2020-04-30] MEDS: LORAZEPAM INJ 2 MG/1 ML VIAL IV PRN ×2 (09:47→11:45)
[2020-04-30] MEDS ORDERED: LORAZEPAM INJ 2 MG/1 ML VIAL ONE (12:17)
[2020-04-30] MEDS: LIDOCAINE 5% (700 MG) TRANSDERMAL ADH..PATCH TP SCH (12:27)
[2020-04-30] MEDS ORDERED: LORAZEPAM INJ 2 MG/1 ML VIAL IV ONE (12:45)
--- NOTE | 2020-04-30 13:16 | Death Summary ---
Summary Date : 04/30/20 Time of :: 12:23 Autopsy: No Resuscitation Status: Comfort Measures Only - Final Diagnosis (1) Septic shock Is this a current diagnosis for this admission?: Yes (2) UTI (urinary tract infection), bacterial Is this a current diagnosis for this admission?: Yes (3) Tibia/fibula fracture Is this a current diagnosis for this admission?: Yes (4) Acute kidney injury superimposed on CKD Is this a current diagnosis for this admission?: Yes (5) Acute metabolic encephalopathy Is this a current diagnosis for this admission?: Yes (6) Chronic atrial fibrillation Is this a current diagnosis for this admission?: Yes (7) Diabetes Is this a current diagnosis for this admission?: Yes (8) Dehydration Is this a current diagnosis for this admission?: Yes (9) Sepsis Is this a current diagnosis for this admission?: Yes Hospital Course:: The patient was admitted to [facility] on continuous cardiac telemetry for septic shock secondary to urinary tract infection identified after the patient had a fall at her long-term residential facility resulting in a closed left tibia/fibula fracture. Based on the patient's prior cultures, she was empirically placed on IV meropenem. She continued to have refractory hypotension despite aggressive IV fluid resuscitation. Discussed with the patient's daughter; was advised that the patient would not want aggressive interventions. Therefore, she was transitioned to comfort care measures at the family's request. IV fluids and antibiotics were discontinued. Comfort order set of PRN analgesics, antiemetics, benzodiazepines, and atropine sublingual drops were deployed. The patient was placed on scheduled IV Tylenol. As anticipated, the patient rapidly declined and expectantly the following day with her family at bedside. Time of : 1223 Cause of : 1. Septic shock 2. Urinary tract infection Other contributing factors: 1. Acute on chronic renal failure 2. Fall 3. Closed/nondisplaced left tib-fib fracture
== END 2020-04-30 14:40 | disposition left against medical advice (07) | DRG 871 ==
LOC: ER 06:57 → EH 08:57 → 3W 09:54
PROVIDERS: ADMIT Hospitalist; ATTEND Registered Nurse
DX: A41.9 Sepsis, unspecified organism (principal); R65.21 Severe sepsis with septic shock; G93.41 Metabolic encephalopathy; S82.102A Unspecified fracture of upper end of left tibia, initial encounter for closed fracture; N39.0 Urinary tract infection, site not specified; N17.9 Acute kidney failure, unspecified; I48.20 Chronic atrial fibrillation, unspecified; I13.0 Hypertensive heart and chronic kidney disease with heart failure and stage 1 through stage 4 chronic kidney disease, or unspecified chronic kidney disease; J96.10 Chronic respiratory failure, unspecified whether with hypoxia or hypercapnia; E11.22 Type 2 diabetes mellitus with diabetic chronic kidney disease; I50.9 Heart failure, unspecified; Z66 Do not resuscitate; E78.5 Hyperlipidemia, unspecified; I25.10 Atherosclerotic heart disease of native coronary artery without angina pectoris; J44.9 Chronic obstructive pulmonary disease, unspecified; N18.3 Chronic kidney disease, stage 3 (moderate); D63.1 Anemia in chronic kidney disease; K21.9 Gastro-esophageal reflux disease without esophagitis; F32.9 Major depressive disorder, single episode, unspecified; E86.0 Dehydration; E11.42 Type 2 diabetes mellitus with diabetic polyneuropathy; F41.9 Anxiety disorder, unspecified; F03.90 Unspecified dementia, unspecified severity, without behavioral disturbance, psychotic disturbance, mood disturbance, and anxiety; Z79.01 Long term (current) use of anticoagulants; Z74.01 Bed confinement status; Z99.81 Dependence on supplemental oxygen; Z90.49 Acquired absence of other specified parts of digestive tract; M19.90 Unspecified osteoarthritis, unspecified site; W19.XXXA Unspecified fall, initial encounter; S82.832A Other fracture of upper and lower end of left fibula, initial encounter for closed fracture; Y93.9 Activity, unspecified; Z86.14 Personal history of Methicillin resistant Staphylococcus aureus infection; Z79.4 Long term (current) use of insulin; Z88.6 Allergy status to analgesic agent; Z88.2 Allergy status to sulfonamides; Z91.041 Radiographic dye allergy status; Y92.129 Unspecified place in nursing home as the place of occurrence of the external cause; Z87.440 Personal history of urinary (tract) infections; Z93.3 Colostomy status; Z79.899 Other long term (current) drug therapy
CPT/HCPCS: 36415; 70450; 71045; 80053; 81001; 82550; 82962; 83605; 83880; 84484; 85025; 85610; 85730; 86850; 86900; 86901; 87040; 87086; 87088; 87186; 93005; 93010; 96365; 99291; J0131; J1644; J1885; J2060; J2185; J2270; J2550; J3010; J7030